=== PATIENT | male | born 1975 | race American Indian/Alaskan Native ===

== ENCOUNTER 2018-04-11 16:54 | Inpatient (IN) | payer SELFPAY ==
[2018-04-11 17:54] LABS: Basophils % (Auto) 0.6 % (0.0-1.8); Eosinophils # (Auto) 0.1 K/mm3 (0.0-0.4); Eosinophils % (Auto) 0.8 % (0.0-4.3); Hematocrit 36.8 % (35.5-45.6); Hemoglobin 12.3 gm/dl (11.8-15.2); Lymphocytes # (Auto) 2.4 K/mm3 (1.2-5.4); Lymphocytes % (Auto) 29.7 % (13.4-35.0); Mean Corpuscular HGB Conc 33 % (32-34); Mean Corpuscular Volume 85 fl (84-94); Monocytes # (Auto) 0.5 K/mm3 (0.0-0.8); Monocytes % (Auto) 6.4 % (0.0-7.3); Platelet Count 244 K/mm3 (140-440); Red Blood Count 4.32 M/mm3 (3.65-5.03); Red Cell Distribution Width 16.2 % (13.2-15.2)
[2018-04-11 18:08] LABS: Calcium 8.6 mg/dL (8.4-10.2)
[2018-04-11] MEDS ORDERED: BABY ASPIRIN PO ONE (18:15)
[2018-04-11 18:26] LABS: Chol/HDL Ratio 2.32 %
--- NOTE | 2018-04-11 18:58 | Emergency Department Report ---
ED General Adult HPI - General Chief complaint: Arrhythmia/Palpitations Stated complaint: HYPERTENSION Time Seen by Provider: 04/11/18 17:59 Source: patient Mode of arrival: Ambulatory Limitations: No Limitations - History of Present Illness Initial comments: Patient is a 42-year-old male who presents with elevated blood pressure. Also states that he has been having this headache. He states that he's been out of his amlodipine and clonidine for a while. Patient denies having any chest pain he denies having any slurred speech me nausea or vomiting. Patient states that his blood pressure was in the 200s and then he try to get it down but nothing helped. - Related Data Home Medications Medication Instructions Recorded Confirmed Last Taken Insulin NPH/Regular [Novolin 70/30] 40 units SUB-Q BID 03/18/13 03/18/13 Unknown Previous Rx's Medication Instructions Recorded Last Taken Type Ciprofloxacin HCl [Ciprofloxacin 500 mg PO BID #20 tablet 03/19/13 Unknown Rx TAB] Famotidine [Pepcid] 10 mg PO BID #20 tablet 03/19/13 Unknown Rx Hydrocodone Bit/Acetaminophen 1 - 2 each PO Q4-6H PRN #12 tablet 03/19/13 Unknown Rx [Lortab 5-500 Tablet] Allergies Allergy/AdvReac Type Severity Reaction Status Date / Time No Known Allergies Allergy Unverified 03/18/13 16:02 ED Review of Systems ROS: Stated complaint: HYPERTENSION Other details as noted in HPI Constitutional: denies: chills, fever Eyes: denies: eye pain, eye discharge, vision change ENT: denies: ear pain, throat pain Respiratory: denies: cough, shortness of breath, wheezing Cardiovascular: denies: chest pain, palpitations Endocrine: no symptoms reported Gastrointestinal: denies: abdominal pain, nausea, diarrhea Genitourinary: denies: urgency, dysuria Musculoskeletal: denies: back pain, joint swelling, arthralgia Skin: denies: rash, lesions Neurological: headache. denies: weakness, paresthesias Psychiatric: denies: anxiety, depression Hematological/Lymphatic: denies: easy bleeding, easy bruising ED Past Medical Hx - Past Medical History Previous Medical History?: Yes Hx Hypertension: Yes Hx Diabetes: Yes - Surgical History Past Surgical History?: Yes Hx Appendectomy: Yes Additional Surgical History: right great toe amputated - Social History Smoking Status: Current Every Day Smoker Substance Use Type: None - Medications Home Medications: Home Medications Medication Instructions Recorded Confirmed Last Taken Type Insulin NPH/Regular [Novolin 70/30] 40 units SUB-Q BID 03/18/13 03/18/13 Unknown History Ciprofloxacin HCl [Ciprofloxacin 500 mg PO BID #20 tablet 03/19/13 Unknown Rx TAB] Famotidine [Pepcid] 10 mg PO BID #20 tablet 03/19/13 Unknown Rx Hydrocodone Bit/Acetaminophen 1 - 2 each PO Q4-6H PRN #12 tablet 03/19/13 Unknown Rx [Lortab 5-500 Tablet] ED Physical Exam - General Limitations: No Limitations General appearance: alert, in no apparent distress - Head Head exam: Present: atraumatic, normocephalic - Eye Eye exam: Present: normal appearance - ENT ENT exam: Present: mucous membranes moist - Neck Neck exam: Present: normal inspection - Respiratory Respiratory exam: Present: normal lung sounds bilaterally. Absent: respiratory distress - Cardiovascular Cardiovascular Exam: Present: regular rate, normal rhythm. Absent: systolic murmur, diastolic murmur, rubs, gallop - GI/Abdominal GI/Abdominal exam: Present: soft, normal bowel sounds - Rectal Rectal exam: Present: deferred - Extremities Exam Extremities exam: Present: normal inspection - Back Exam Back exam: Present: normal inspection - Neurological Exam Neurological exam: Present: alert, oriented X3 - Psychiatric Psychiatric exam: Present: normal affect, normal mood - Skin Skin exam: Present: warm, dry, intact, normal color. Absent: rash ED Course Vital Signs 04/11/18 04/11/18 04/11/18 17:16 18:06 18:16 Temperature 98.8 F Pulse Rate 110 H 83 Respiratory 20 17 Rate Blood Pressure 159/98 O2 Sat by Pulse 99 100 100 Oximetry 04/11/18 04/11/18 04/11/18 18:30 18:46 19:00 Temperature Pulse Rate 80 81 85 Respiratory 13 17 13 Rate Blood Pressure 157/88 171/98 162/82 O2 Sat by Pulse 100 100 99 Oximetry 04/11/18 04/11/18 04/11/18 19:16 19:30 19:46 Temperature Pulse Rate 83 80 74 Respiratory 12 8 L 16 Rate Blood Pressure 162/82 177/103 162/82 O2 Sat by Pulse 100 100 100 Oximetry 04/11/18 04/11/18 04/11/18 20:00 20:16 20:30 Temperature Pulse Rate 77 87 100 H Respiratory 16 11 L 17 Rate Blood Pressure 162/82 177/103 151/102 O2 Sat by Pulse 100 100 100 Oximetry 04/11/18 04/11/18 04/11/18 20:46 21:00 21:16 Temperature Pulse Rate 92 H 90 Respiratory 31 H 21 Rate Blood Pressure 151/102 192/106 192/106 O2 Sat by Pulse 100 99 100 Oximetry ED Medical Decision Making - Lab Data Result diagrams: 04/11/18 17:36 04/11/18 17:36 Lab Results 04/11/18 04/11/18 04/11/18 Range/Units 17:36 17:36 20:12 WBC 8.2 (4.5-11.0) K/mm3 RBC 4.32 (3.65-5.03) M/mm3 Hgb 12.3 (11.8-15.2) gm/dl Hct 36.8 (35.5-45.6) % MCV 85 (84-94) fl MCH 28 (28-32) pg MCHC 33 (32-34) % RDW 16.2 H (13.2-15.2) % Plt Count 244 (140-440) K/mm3 Lymph % (Auto) 29.7 (13.4-35.0) % Atlantic % (Auto) 6.4 (0.0-7.3) % Eos % (Auto) 0.8 (0.0-4.3) % Baso % (Auto) 0.6 (0.0-1.8) % Lymph # 2.4 (1.2-5.4) K/mm3 Atlantic # 0.5 (0.0-0.8) K/mm3 Eos # 0.1 (0.0-0.4) K/mm3 Baso # 0.0 (0.0-0.1) K/mm3 Seg Neutrophils % 62.5 (40.0-70.0) % Seg Neutrophils # 5.1 (1.8-7.7) K/mm3 Sodium 135 L (137-145) mmol/L Potassium 5.1 H (3.6-5.0) mmol/L Chloride 103.5 (98-107) mmol/L Carbon Dioxide 23 (22-30) mmol/L Anion Gap 14 mmol/L BUN 28 H (9-20) mg/dL Creatinine 3.2 H (0.8-1.5) mg/dL Estimated GFR 26 ml/min BUN/Creatinine Ratio 9 % Glucose 355 H (75-100) mg/dL Calcium 8.6 (8.4-10.2) mg/dL Troponin T 0.052 H 0.051 H (0.00-0.029) ng/mL Triglycerides 117 (2-149) mg/dL Cholesterol 172 (50-199) mg/dL LDL Cholesterol Direct 99 (50-130) mg/dL HDL Cholesterol 74 H (40-59) mg/dL Cholesterol/HDL Ratio 2.32 % - EKG Data -: EKG Interpreted by Me - EKG Data 04/11/18 21:50 EKG shows normal sinus rhythm at rate 100 st segment elevation no T wave inversion signs of LVH. - Radiology Data Radiology results: image reviewed - Medical Decision Making Chief medical diagnosis: Hypertensive emergency Differential medical diagnosis: Non-STEMI, hypertensive urgency CBC, BMP, troponin, chest x-ray I will give patient oral aspirin Patient's blood work is concerning for elevated creatinine and elevated troponin. He states that this is never happened to him before. I will admit patient to the hospital. Critical care attestation.: If time is entered above; I have spent that time in minutes in the direct care of this critically ill patient, excluding procedure time. ED Disposition Clinical Impression: NSTEMI (non-ST elevated myocardial infarction), Hypertensive emergency, RADHA ( acute kidney injury) Disposition: OP ADMIT IP TO THIS HOSP Is pt being admited?: No Does the pt Need Aspirin: No Condition: Stable Instructions: Hypertension (ED) Referrals: OVIDIO MELLO MD [Primary Care Provider] - 3-5 Days
[2018-04-11] MEDS ORDERED: APRESOLINE IV ONE (22:51)
--- NOTE | 2018-04-11 22:57 | XRay Report ---
FINAL REPORT EXAM: XR CHEST 1V AP HISTORY: cough TECHNIQUE: AP portable view of the chest. PRIORS: None. FINDINGS: The cardiomediastinal silhouette appears normal. The lungs are clear. The bones and soft tissues are unremarkable. IMPRESSION: No evidence of acute cardiopulmonary disease.
--- NOTE | 2018-04-11 23:08 | History and Physical Report ---
History of Present Illness Date of examination: 04/11/18 History of present illness: This is a 42-year-old man with a history of hypertension, diabetes, chronic kidney disease comes to emergency room because his blood pressures being high at home. He stated that since his antihypertensives were switched, he just started monitoring his blood pressure. He stated he's compliant with his medication, his blood pressure is been very high at home so he came to the emergency room for evaluation. He complains of left flank pain Review of systems Constitutional: no weight loss, chills, fever Ears, eyes, nose, mouth and throat: no nasal congestion, no nasal discharge, no sinus pressure, no vision change, no red eye. Neck: No neck pain or rigidity. Cardiovascular: no palpitations, chest pain Respiratory: no cough, shortness of breath Gastrointestinal: no hematochezia, abdominal pain Genitourinary : no frequency , no hematuria Musculoskeletal: no joint swelling or muscle ache Integumentary: no rash, no pruritis Neurological: no parathesias, no focal weakness Endocrine: no cold or heat intolerance, no polyuria or polydipsia Hematologic/Lymphatic: no easy bruising, no easy bleeding, no gland swelling Allergic/Immunologic: no urticaria, no angioedema. PAST MEDICAL HISTORY: hypertension, diabetes, chronic kidney disease PAST SURGICAL HISTORY: Appendectomy, right toe amputation SOCIAL HISTORY: Denies alcohol, drugs, smoke 4 cigarettes a day FAMILY HISTORY: Hypertension Medications and Allergies Allergies Allergy/AdvReac Type Severity Reaction Status Date / Time No Known Allergies Allergy Unverified 03/18/13 16:02 Home Medications Medication Instructions Recorded Confirmed Last Taken Type Insulin NPH/Regular [Novolin 70/30] 40 units SUB-Q BID 03/18/13 03/18/13 Unknown History Ciprofloxacin HCl [Ciprofloxacin 500 mg PO BID #20 tablet 03/19/13 Unknown Rx TAB] Famotidine [Pepcid] 10 mg PO BID #20 tablet 03/19/13 Unknown Rx Hydrocodone Bit/Acetaminophen 1 - 2 each PO Q4-6H PRN #12 tablet 03/19/13 Unknown Rx [Lortab 5-500 Tablet] Exam - Physical Exam Narrative exam: General Apperance: The patient lying in bed, breathing comfortable HEENT: Normocephalic, atraumatic. Pupils equally round and reactive to light, EOMI, no sclericterus or JVD or thyromegaly or nodule. , no carotid bruit, mucous membranes moist, no exudate or erythema Heart: S1-S2, regular is rhythm Lungs: Clear to auscultation bilaterally, breathing comfortable Abdomen: Positive bowel sounds, soft, nontender, nondistended, no organomegaly Extremities: No edema cyanosis clubbing Skin: no rash, nodule, warm and dry Neuro: cranial nerves 2-12 intact, speech is fluent, motor/sensory intact - Constitutional Vitals: Temp Pulse Resp BP Pulse Ox 98.8 F 90 21 192/106 100 04/11/18 17:16 04/11/18 21:00 04/11/18 21:00 04/11/18 21:16 04/11/18 21:16 Results - Labs CBC & Chem 7: 04/11/18 17:36 04/11/18 17:36 Labs: Abnormal lab results 04/11/18 04/11/18 04/11/18 Range/Units 17:36 17:36 20:12 RDW 16.2 H (13.2-15.2) % Sodium 135 L (137-145) mmol/L Potassium 5.1 H (3.6-5.0) mmol/L BUN 28 H (9-20) mg/dL Creatinine 3.2 H (0.8-1.5) mg/dL Glucose 355 H (75-100) mg/dL Troponin T 0.052 H 0.051 H (0.00-0.029) ng/mL HDL Cholesterol 74 H (40-59) mg/dL - Imaging and Cardiology EKG: image reviewed Chest x-ray: image reviewed Assessment and Plan Assessment Hypertensive urgency, malignant acute on chronic renal failure Left flank pain Abnormal cardiac enzymes Diabetes uncontrolled Plan Admit to medicine Start IV hydralazine, restart outpatient medications Start Gentle IV fluid, consult renal, check CAT scan of the abdomen and pelvis Check cardiac enzymes, echo, consult cardiology Check Lani 6 initiate insulin sliding scale DVT prophylaxis
[2018-04-11] MEDS ORDERED: APRESOLINE IV PRN (23:09)
[2018-04-11] MEDS ORDERED: NORVASC PO ONE ×2 (23:11→23:45)
[2018-04-11] MEDS ORDERED: HumuLIN R IV ONE (23:49)
[2018-04-11] MEDS ORDERED: HumuLIN R ONE (23:55)
[2018-04-12] MEDS ORDERED: SODIUM CHLORIDE FLUSH SYRINGE 10 ML IV PRN (00:36)
[2018-04-12] MEDS ORDERED: ZOFRAN IV PRN (00:36)
[2018-04-12] MEDS ORDERED: TYLENOL PO PRN (00:36)
[2018-04-12] MEDS ORDERED: KIONEX PO ONE ×2 (01:00→08:30)
[2018-04-12] MEDS: PERCOCET 5/325 PO PRN ×3 (04:54→19:38)
[2018-04-12] MEDS ORDERED: D50W (25GM) Syringe IV PRN ×2 (06:49→09:00)
[2018-04-12 07:02] LABS: Basophils # (Auto) 0.1 K/mm3 (0.0-0.1); Eosinophils # (Auto) 0.1 K/mm3 (0.0-0.4); Eosinophils % (Auto) 1.4 % (0.0-4.3); Hematocrit 36.6 % (35.5-45.6); Hemoglobin 11.4 gm/dl (11.8-15.2); Lymphocytes # (Auto) 2.4 K/mm3 (1.2-5.4); Lymphocytes % (Auto) 34.5 % (13.4-35.0); Mean Corpuscular HGB Conc 31 % (32-34); Mean Corpuscular Volume 88 fl (84-94); Monocytes # (Auto) 0.5 K/mm3 (0.0-0.8); Monocytes % (Auto) 7.5 % (0.0-7.3); Platelet Count 218 K/mm3 (140-440); Red Blood Count 4.16 M/mm3 (3.65-5.03); Red Cell Distribution Width 16.6 % (13.2-15.2)
[2018-04-12 07:11] LABS: Calcium 8.5 mg/dL (8.4-10.2)
--- NOTE | 2018-04-12 07:18 | Consultation ---
History of Present Illness - Reason for Consult Consult date: 04/12/18 acute renal failure, hyperkalemia - History of Present Illness Very pleasant 42-year-old -[place]ag[place] male with past medical history significant for hypertension and diabetes who has not followed up with primary care secondary to insurance issues, presented to the emergency department secondary to elevated blood pressures. He has visited emergency rooms in the past secondary to uncontrolled blood pressure. Had recently went to another outside emergency room and was given amlodipine and clonidine for her home blood pressure control. This was only for a couple of weeks. He states that despite taking these medications his blood pressures had been elevated and erratic and was instructed to go to the hospital for further evaluation. 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 Nephrology consult secondary to acute kidney injury and hyperkalemia. I do not have a previous renal function panel to compare to but patient has mentioned that in his previous hospitalizations he has been seen by a funeral pre need consultant. He unfortunately was unable to follow-up secondary to insurance issues. He denies any complaints of nausea, vomiting, headache, chest pain, or shortness of breath. He does mention periodic bilateral lower extremity swelling. He did attributed to the amlodipine. He has no swelling noted at this time. In the emergency room he was also found to be significantly hyperglycemic. He is on sliding scale insulin at home. He does not remember h is last hemoglobin A1c. He states that his blood sugar control is also been a radical last 2-3 days. He denies any significant symptoms as polyuria or polydipsia. He is also complained of right-sided flank pain but denies hematuria. Past History Past Medical History: diabetes, hypertension, hyperlipidemia Past Surgical History: appendectomy Social history: lives with family, smoking Family history: diabetes (his cousin is on dialysis secondary to diabetes and end-stage renal disease), hypertension Medications and Allergies Allergies Allergy/AdvReac Type Severity Reaction Status Date / Time No Known Allergies Allergy Unverified 03/18/13 16:02 Home Medications Medication Instructions Recorded Confirmed Last Taken Type Insulin NPH/Regular [Novolin 70/30] 40 units SUB-Q BID 03/18/13 03/18/13 Unknown History Ciprofloxacin HCl [Ciprofloxacin 500 mg PO BID #20 tablet 03/19/13 Unknown Rx TAB] Famotidine [Pepcid] 10 mg PO BID #20 tablet 03/19/13 Unknown Rx Hydrocodone Bit/Acetaminophen 1 - 2 each PO Q4-6H PRN #12 tablet 03/19/13 Unknown Rx [Lortab 5-500 Tablet] Active Meds: Active Medications Acetaminophen (Tylenol) 650 mg PO Q4H PRN PRN Reason: Pain MILD(1-3)/Fever >100.5/DIA Dextrose (D50w (25gm) Syringe) 50 ml IV PRN PRN PRN Reason: Hypoglycemia Enoxaparin Sodium (Lovenox) 30 mg SUB-Q QDAY JUAN DANIEL Hydralazine HCl (Apresoline) 5 mg IV Q6H PRN PRN Reason: Hypertension Sodium Chloride (Nacl 0.45% 1000 Ml) 1,000 mls @ 75 mls/hr IV DIRECT JUAN DANIEL Insulin Human Regular (Humulin R) 0 units SUB-Q ACHS JUAN DANIEL; Protocol Ondansetron HCl (Zofran) 4 mg IV Q8H PRN PRN Reason: Nausea And Vomiting Oxycodone/Acetaminophen (Percocet 5/325) 1 tab PO Q6H PRN PRN Reason: Pain, Moderate (4-6) Last Admin: 04/12/18 04:54 Dose: 1 tab Documented by: Sodium Chloride (Sodium Chloride Flush Syringe 10 Ml) 10 ml IV BID JUAN DANIEL Sodium Chloride (Sodium Chloride Flush Syringe 10 Ml) 10 ml IV PRN PRN PRN Reason: LINE FLUSH Review of Systems All systems: negative Gastrointestinal: abdominal pain Exam - Vital Signs Vital signs: Vital Signs Temp Pulse Resp BP Pulse Ox 98.8 F 110 H 20 159/98 99 04/11/18 17:16 04/11/18 17:16 04/11/18 17:16 04/11/18 17:16 04/11/18 17:16 - General Appearance General appearance: well-developed, well-nourished, appears stated age EENT: ATNC, PERRL Neck: Present: neck supple, trachea midline Respiratory: Clear to Ascultation, Normal Exam Heart: regular, S1S2 Gastrointestinal: Present: normal, normoactive bowel sounds Integumentary: no rash, warm and dry Neurologic: no focal deficit, no asterixis, alert and oriented x3 Musculoskeletal: Present: other (-edema) Psychiatric: mood/affect appropriate, cooperative Results - Lab Results 04/12/18 06:26 04/12/18 06:26 Most recent lab results Calcium 8.5 mg/dL (8.4-10.2) 04/12/18 06:26 Assessment and Plan - Patient Problems (1) RADHA (acute kidney injury) Current Visit: Yes Status: Acute Plan to address problem: Acute on likely chronic kidney disease secondary to uncontrolled hypertension, uncontrolled diabetes. Will obtain urine analysis as well as urine electrolytes. We'll also obtain a renal ultrasound. Would recommend that we discontinue his IV fluids in the setting of the uncontrolled blood pressure. We'll follow up on renal function daily. Avoid any nephrotoxins. (2) Hypertensive chronic kidney disease with stage 1 through stage 4 chronic kidney disease, or unspecified chronic kidney disease Current Visit: Yes Status: Chronic Plan to address problem: We'll start patient on hydralazine 50 mg twice a day. We'll also have him start on nifedipine 60 mg. We'll titrate medications as appropriate for blood pressure control. Would favor to discontinue his IV fluids are running at this time in the setting of his hypertensive state. Expressed to patient the importance of low-salt diet. (3) Type 2 diabetes mellitus with diabetic chronic kidney disease Current Visit: Yes Status: Chronic Plan to address problem: Diabetes management per primary team. Will add hemoglobin A1c to labs this morning. 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 Agree with optimal medical treatment and adequate blood sugar control. Kayexalate has been ordered this morning. Also needs to ensure the patient is on a low potassium diet. (5) Metabolic acidosis Current Visit: Yes Status: Acute Plan to address problem: Will add patient on sodium bicarbonate tablets 650 mg by mouth twice a day. (6) NSTEMI (non-ST elevated myocardial infarction) Current Visit: Yes Status: Acute Plan to address problem: Cardiology has been consulted. Echocardiogram is pending. We'll follow up with further recommendations.
[2018-04-12] MEDS ORDERED: HumuLIN R SUB-Q SCH (07:30)
[2018-04-12] MEDS ORDERED: APRESOLINE IV PRN (08:17)
[2018-04-12 08:56] LABS: Creatine Kinase MB 4.5 ng/mL (0.0-4.0)
[2018-04-12] MEDS ORDERED: HumaLOG SUB-Q ONE (09:00)
[2018-04-12] MEDS ORDERED: LANTUS SUB-Q ONE (09:30)
--- NOTE | 2018-04-12 09:54 | Cat Scan Report ---
CT ABDOMEN PELVIS WITHOUT CONTRAST: HISTORY: Acute renal failure, left flank pain. COMPARISON: none. TECHNIQUE: Helical CT in 1.25mm intervals without IV contrast. Sagittal and coronal reconstructions. FINDINGS: Lung bases: Normal. Liver: Normal. Biliary system: Normal. Pancreas: Normal. Spleen: Normal. Kidneys/ureters/bladder: The kidneys are normal size and position. There are 1 or 2 punctate calyceal stones in both kidneys. No obvious ureteral stones or hydronephrosis. The bladder is mildly distended but otherwise unremarkable. Adrenal glands: Normal. Aorta: Normal. Intestines: Within normal limits given no oral contrast was administered. Mild constipation is suspected. Appendix: Not confidently identified. Pelvic viscera: Normal. Ascites: None. Adenopathy: None. Musculoskeletal: Normal. IMPRESSION: There are a few punctate calyceal stones in both kidneys. No ureteral stones or hydronephrosis. Mild constipation.
[2018-04-12] MEDS: PEPCID PO SCH ×2 (10:41→23:00)
[2018-04-12] MEDS: SODIUM BICARBONATE PO SCH ×2 (10:41→23:01)
[2018-04-12] MEDS: LOVENOX SUB-Q SCH (10:41)
[2018-04-12] MEDS: PROCARDIA XL PO SCH (10:41)
[2018-04-12] MEDS: APRESOLINE PO SCH ×2 (10:41→23:01)
[2018-04-12] MEDS: SODIUM CHLORIDE FLUSH SYRINGE 10 ML IV SCH ×2 (10:42→22:30)
--- NOTE | 2018-04-12 10:58 | Ultrasound Report ---
ULTRASOUND RENAL BILATERAL HISTORY: Acute kidney insufficiency. TECHNIQUE: transabdominal ultrasound with color Doppler interrogation. COMPARISON: CT abdomen pelvis performed the same day. FINDINGS: The right kidney measures 8.6 x 4.6 x 4.7cm. Right renal cortex: 1.9cm. The left kidney measures 9.5 x 4.3 x 5.4cm. Left renal cortex: 1.4cm. The kidneys are normal size, contour and position. There is increased renal cortical echotexture bilaterally consistent with nonspecific renal parenchymal disease. Corticomedullary differentiation is preserved. There is diffuse scattered punctate calyceal stones in both kidneys. No evidence for cystic disease, mass, hydronephrosis or perinephric fluid. The views of the bladder and the region of the ureters appear normal. IMPRESSION: Renal parenchymal disease. Punctate bilateral renal stones, nonobstructing.
--- NOTE | 2018-04-12 11:41 | Consultation ---
History of Present Illness Consult date: 04/12/18 Requesting physician: TEENA SHAW Consult reason: elevated troponin, hypertension History of present illness: The patient has a history of hypertension. He claims that his BP has been uncontrolled for the past 3 weeks. He claims that his antihypertensive management regimen was modified recently. He used to be on HCTZ in combination with another drug. Recently, he claims that HCTZ was discontinued and he was pl aced on amlodipine and clonidine. He claims that he has noted some leg swelling recently. He decided to present to the ER because his blood pressure was staying significantly elevated. He denies headache, nausea, vomiting or blurring of vision. He admits to intermittent chest pain a few days ago. He claims that he had been advised to go for nephrology consultation in the past. However, whenever he attempted to set up an appointment, they never called him back, probably due to his lack of insurance. Past History Past Medical History: diabetes, hypertension, renal failure Past Surgical History: appendectomy, Other (right great toe amputation.) Social history: single, lives with family, smoking. denies: alcohol abuse Family history: denies: CAD Medications and Allergies Allergies Allergy/AdvReac Type Severity Reaction Status Date / Time No Known Allergies Allergy Unverified 03/18/13 16:02 Home Medications Medication Instructions Recorded Confirmed Last Taken Type Insulin NPH/Regular [Novolin 70/30] 40 units SUB-Q BID 03/18/13 03/18/13 Unknown History Ciprofloxacin HCl [Ciprofloxacin 500 mg PO BID #20 tablet 03/19/13 Unknown Rx TAB] Famotidine [Pepcid] 10 mg PO BID #20 tablet 03/19/13 Unknown Rx Hydrocodone Bit/Acetaminophen 1 - 2 each PO Q4-6H PRN #12 tablet 03/19/13 Unknown Rx [Lortab 5-500 Tablet] Active Meds: Active Medications Acetaminophen (Tylenol) 650 mg PO Q4H PRN PRN Reason: Pain MILD(1-3)/Fever >100.5/DIA Dextrose (D50w (25gm) Syringe) 50 ml IV PRN PRN PRN Reason: Hypoglycemia Dextrose (D50w (25gm) Syringe) 50 ml IV PRN PRN PRN Reason: Hypoglycemia Enoxaparin Sodium (Lovenox) 30 mg SUB-Q QDAY JUAN DANIEL Last Admin: 04/12/18 10:41 Dose: 30 mg Documented by: Famotidine (Pepcid) 10 mg PO BID [facility] Last Admin: 04/12/18 10:41 Dose: 10 mg Documented by: Hydralazine HCl (Apresoline) 50 mg PO BID [facility] Last Admin: 04/12/18 10:41 Dose: 50 mg Documented by: Hydralazine HCl (Apresoline) 20 mg IV Q6H PRN PRN Reason: Hypertension Sodium Chloride (Nacl 0.45% 1000 Ml) 1,000 mls @ 75 mls/hr IV DIRECT [facility] Insulin Human Isoph/Insulin Regular (Humulin 70/30) 40 unit SUB-Q BIDDIAB [facility] Insulin Human Lispro (Humalog) 0 unit SUB-Q ACHS [facility]; Protocol Nifedipine (Procardia Xl) 60 mg PO QDAY [facility] Last Admin: 04/12/18 10:41 Dose: 60 mg Documented by: Ondansetron HCl (Zofran) 4 mg IV Q8H PRN PRN Reason: Nausea And Vomiting Oxycodone/Acetaminophen (Percocet 5/325) 1 tab PO Q6H PRN PRN Reason: Pain, Moderate (4-6) Last Admin: 04/12/18 04:54 Dose: 1 tab Documented by: Sodium Bicarbonate (Sodium Bicarbonate) 650 mg PO BID [facility] Last Admin: 04/12/18 10:41 Dose: 650 mg Documented by: Sodium Chloride (Sodium Chloride Flush Syringe 10 Ml) 10 ml IV BID [facility] Last Admin: 04/12/18 10:42 Dose: 10 ml Documented by: Sodium Chloride (Sodium Chloride Flush Syringe 10 Ml) 10 ml IV PRN PRN PRN Reason: LINE FLUSH Review of Systems Constitutional: no fever, no chills Ears, nose, mouth and throat: no ear pain, no ear discharge, no sore throat Cardiovascular: chest pain, edema, no orthopnea, no palpitations, no lightheadedness, no shortness of breath Respiratory: no cough, no hemoptysis, no shortness of breath Gastrointestinal: no abdominal pain, no nausea, no vomiting, no diarrhea, no constipation Genitourinary Male: no dysuria, no urinary frequency Rectal: no pain, no bleeding Musculoskeletal: no neck stiffness, no neck pain, no myalgias Integumentary: no rash, no pruritis Neurological: no weakness, no parathesias, no headaches Endocrine: no cold intolerance, no heat intolerance Hematologic/Lymphatic: no easy bruising, no easy bleeding Allergic/Immunologic: no urticaria, no wheezing Physical Examination Vital Signs Last Vital Signs Temp 98.7 F 04/12/18 05:17 Pulse 76 04/12/18 10:41 Resp 18 04/12/18 05:17 BP 134/72 04/12/18 10:41 Pulse Ox 100 04/12/18 05:17 General appearance: no acute distress HEENT: Positive: EOMI, Normocephaly, Mucus Membranes Moist Neck: Positive: neck supple, trachea midline Cardiac: Positive: Reg Rate and Rhythm, S1/S2 Lungs: Positive: clear to auscultation Neuro: Positive: Grossly Intact Abdomen: Positive: Soft, Active Bowel Sounds. Negative: Tender Skin: Positive: Clear. Negative: Rash Musculoskeletal: Normal Range of Motion Extremities: Present: normal. Absent: edema Results 04/12/18 06:26 04/12/18 06:26 Cardiac Enzymes 04/12/18 04/12/18 Range/Units 00:51 06:26 CK-MB (CK-2) 6.0 H 4.5 H (0.0-4.0) ng/mL Lipids 04/11/18 Range/Units 17:36 Triglycerides 117 (2-149) mg/dL Cholesterol 172 (50-199) mg/dL HDL Cholesterol 74 H (40-59) mg/dL Cholesterol/HDL Ratio 2.32 % CBC 04/11/18 04/12/18 Range/Units 17:36 06:26 WBC 8.2 6.9 (4.5-11.0) K/mm3 RBC 4.32 4.16 (3.65-5.03) M/mm3 Hgb 12.3 11.4 L (11.8-15.2) gm/dl Hct 36.8 36.6 (35.5-45.6) % Plt Count 244 218 (140-440) K/mm3 Lymph # 2.4 2.4 (1.2-5.4) K/mm3 [place] # 0.5 0.5 (0.0-0.8) K/mm3 Eos # 0.1 0.1 (0.0-0.4) K/mm3 Baso # 0.0 0.1 (0.0-0.1) K/mm3 Comprehensive Metabolic Panel 04/11/18 04/12/18 Range/Units 17:36 06:26 Sodium 135 L 131 L (137-145) mmol/L Potassium 5.1 H 5.8 H (3.6-5.0) mmol/L Chloride 103.5 96.9 L (98-107) mmol/L Carbon Dioxide 23 20 L (22-30) mmol/L BUN 28 H 30 H (9-20) mg/dL Creatinine 3.2 H 3.6 H (0.8-1.5) mg/dL Glucose 355 H 712 H* (75-100) mg/dL Calcium 8.6 8.5 (8.4-10.2) mg/dL - Imaging and Cardiology EKG: image reviewed EKG interpretations - Telemetry EKG Rhythm: Sinus Rhythm - EKG Sinus rhythms and dysrhythmias: sinus rhythm Chamber hypertrophy or enlargement: left atrial enlargement, right atrial enlargment, left ventricular hypertro Assessment and Plan Will optimize his antihypertensive regimen. Obtain echocardiogram. Schedule Lexiscan stress MPI in am. - Patient Problems (1) Uncontrolled hypertension Current Visit: Yes Status: Acute (2) Elevated troponin Current Visit: Yes Status: Acute (3) CKD (chronic kidney disease) Current Visit: Yes Status: Chronic (4) Diabetes mellitus Current Visit: Yes Status: Chronic Qualifiers: Diabetes mellitus type: type 2
--- NOTE | 2018-04-12 12:32 | Progress Note ---
Assessment and Plan Assessment and plan: 42-year-old man who presented to the hospital with elevated blood pressure. Was complaining of headache. He ran out of his blood pressure meds which were namely amlodipine and clonidine for quite some time. She had systolic blood pressure in the 200s, therefore he was admitted. Past medical history includes hypertension, type [address] abdomen and pelvis shows few punctate calyceal stones in both kidneys, no ureteral stones or hydronephrosis, Renal ultrasound shows renal parenchymal disease Chest x-ray is negative for acute cardiopulmonary disease Diagnosis Hypertensive urgency Type 2 diabetes with persistent hyperglycemia Hyperosmolar hyperglycemic nonketotic state Acute on chronic renal failure, HTN nephropathy Left flank pain Abnormal cardiac enzymes Hyperkalemia Plan Optimize blood pressure medications Insulin bolus given plus IVF The patient denies chest pain, management of slightly elevated troponin per cardiology. Left flank pain resolved, kidney imaging is negative, no further workup indicated He received Kayexalate for hyperkalemia. nephrology input appreciated Patient is self-pay, so therefore would benefits from being put on affordable medications. DVT prophylaxis with Lovenox History Interval history: Review of systems Constitutional: No fevers, no malaise, no joint pains CVS: No chest pain, no orthopnea, no dyspnea on exertion, no pedal edema GI: No abdominal pain, no diarrhea, no vomiting, no constipation Respiratory: No shortness of breath, no wheezing, no coughing Hospitalist Physical - Physical exam Narrative exam: General.: Appears well, no distress, nontoxic HEENT: Moist mucous membranes, extraocular muscles intact, no lymphadenopathy Neck: supple Cardiac: S1-S2 heard Lungs: clear to auscultation bilaterally Abdomen: soft , nontender, nondistended, bowel sounds positive Extremities: no edema clubbing or cyanosis Skin: no rash or lesions Neurologic: no gross focal deficits Psych: calm, and cooperative - Constitutional Vitals: Temp Pulse Resp BP Pulse Ox 98.7 F 76 18 134/72 100 04/12/18 05:17 04/12/18 10:41 04/12/18 05:17 04/12/18 10:41 04/12/18 05:17 General appearance: Present: no acute distress Results - Labs CBC & Chem 7: 04/12/18 06:26 04/12/18 06:26 Labs: Laboratory Last Values WBC 6.9 K/mm3 (4.5-11.0) 04/12/18 06:26 RBC 4.16 M/mm3 (3.65-5.03) 04/12/18 06:26 Hgb 11.4 gm/dl (11.8-15.2) L 04/12/18 06:26 Hct 36.6 % (35.5-45.6) 04/12/18 06:26 MCV 88 fl (84-94) 04/12/18 06:26 MCH 27 pg (28-32) L 04/12/18 06:26 MCHC 31 % (32-34) L 04/12/18 06:26 RDW 16.6 % (13.2-15.2) H 04/12/18 06:26 Plt Count 218 K/mm3 (140-440) 04/12/18 06:26 Lymph % (Auto) 34.5 % (13.4-35.0) 04/12/18 06:26 [place] % (Auto) 7.5 % (0.0-7.3) H 04/12/18 06:26 Eos % (Auto) 1.4 % (0.0-4.3) 04/12/18 06:26 Baso % (Auto) 1.0 % (0.0-1.8) 04/12/18 06:26 Lymph # 2.4 K/mm3 (1.2-5.4) 04/12/18 06:26 [place] # 0.5 K/mm3 (0.0-0.8) 04/12/18 06:26 Eos # 0.1 K/mm3 (0.0-0.4) 04/12/18 06:26 Baso # 0.1 K/mm3 (0.0-0.1) 04/12/18 06:26 Seg Neutrophils % 55.6 % (40.0-70.0) 04/12/18 06:26 Seg Neutrophils # 3.9 K/mm3 (1.8-7.7) 04/12/18 06:26 Sodium 131 mmol/L (137-145) L 04/12/18 06:26 Potassium 5.8 mmol/L (3.6-5.0) H 04/12/18 06:26 Chloride 96.9 mmol/L (98-107) L 04/12/18 06:26 Carbon Dioxide 20 mmol/L (22-30) L 04/12/18 06:26 Anion Gap 20 mmol/L 04/12/18 06:26 BUN 30 mg/dL (9-20) H 04/12/18 06:26 Creatinine 3.6 mg/dL (0.8-1.5) H 04/12/18 06:26 Estimated GFR 22 ml/min 04/12/18 06:26 BUN/Creatinine Ratio 8 % 04/12/18 06:26 Glucose 712 mg/dL (75-100) H* 04/12/18 06:26 POC Glucose 443 (70-105) H 04/12/18 10:32 Calcium 8.5 mg/dL (8.4-10.2) 04/12/18 06:26 Total Creatine Kinase 248 units/L (55-170) H 04/12/18 06:26 CK-MB (CK-2) 4.5 ng/mL (0.0-4.0) H 04/12/18 06:26 CK-MB (CK-2) Rel Index 1.8 (0-4) 04/12/18 06:26 Troponin T 0.067 ng/mL (0.00-0.029) H 04/12/18 06:26 Triglycerides 117 mg/dL (2-149) 04/11/18 17:36 Cholesterol 172 mg/dL (50-199) 04/11/18 17:36 LDL Cholesterol Direct 99 mg/dL (50-130) 04/11/18 17:36 HDL Cholesterol 74 mg/dL (40-59) H 04/11/18 17:36 Cholesterol/HDL Ratio 2.32 % 04/11/18 17:36 PTH Intact 237.8 pg/mL (15-65) H 04/12/18 09:13
[2018-04-12] MEDS: HumaLOG SUB-Q SCH ×5 (13:08→23:01)
[2018-04-12] MEDS: LOPRESSOR PO SCH ×2 (13:09→19:38)
[2018-04-12] MEDS: NACL 0.45% 1000 ML 1,000 ML IV SCH (19:49)
[2018-04-13] MEDS: PERCOCET 5/325 PO PRN ×3 (01:09→18:58)
[2018-04-13 06:40] LABS: Calcium 8.4 mg/dL (8.4-10.2)
[2018-04-13] MEDS: HumaLOG SUB-Q SCH ×4 (08:08→22:00)
[2018-04-13] MEDS: LOPRESSOR PO SCH (08:12)
[2018-04-13] MEDS ORDERED: LEXISCAN IV ONE ×2 (08:19)
--- NOTE | 2018-04-13 09:15 | Progress Note ---
Assessment and Plan - Patient Problems (1) RADHA (acute kidney injury) Current Visit: Yes Status: Acute Plan to address problem: Acute on likely chronic kidney disease secondary to uncontrolled hypertension, uncontrolled diabetes. Urine analysis as well as urine electrolytes pending . Renal ultrasound. Would recommend that we discontinue his IV fluids in the setting of the uncontrolled blood pressure. We'll follow up on renal function daily. Avoid any nephrotoxins. Discussed with patient that he likely has late stage III/early stage IV CKD. He needs to follow up with me in the clinic within 2-3 weeks post discharge. (2) Hypertensive chronic kidney disease with stage 1 through stage 4 chronic kidney disease, or unspecified chronic kidney disease Current Visit: Yes Status: Chronic Plan to address problem: We'll started patient on hydralazine 50 mg twice a day. We'll also started him nifedipine 60 mg. We'll titrate medications as appropriate for blood pressure control. Patient also added on metoprolol. Expressed to patient the importance of low-salt diet. (3) Type 2 diabetes mellitus with diabetic chronic kidney disease Current Visit: Yes Status: Chronic Plan to address problem: Diabetes management per primary team. Will add hemoglobin A1c to labs this morning. 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 Agree with optimal medical treatment and adequate blood sugar control. Potassium levels are improved this am. He should be on a low K diet. (5) Metabolic acidosis Current Visit: Yes Status: Acute Plan to address problem: Placed on sodium bicarbonate tablets 650 mg by mouth twice a day. (6) NSTEMI (non-ST elevated myocardial infarction) Current Visit: Yes Status: Acute Plan to address problem: Cardiology has been consulted. Stress test pending this am per nursing staff. We'll follow up with further recommendations. Subjective Date of service: 04/13/18 Interval history: Patient seen earlier this am at ~7:45 am. No acute complaints overnight. Labs noted this am and overall renal function is stable. Elevated iPTH and renal US indicate likely underlying CKD burden. HgA1c elevated at 11. Started on oral antihypertensive regimen, with BP control improved since admission. Pending stress test this am. Objective - Vital Signs Vital signs: Vital Signs - 12hr 04/12/18 04/12/18 04/13/18 21:19 22:55 01:09 Temperature 98.4 F Pulse Rate 74 Respiratory 16 18 Rate Blood Pressure 152/92 O2 Sat by Pulse 100 99 Oximetry 04/13/18 03:37 Temperature 98.0 F Pulse Rate 72 Respiratory 14 Rate Blood Pressure 148/89 O2 Sat by Pulse 98 Oximetry - General Appearance General appearance: well-developed, well-nourished, appears stated age EENT: ATNC, PERRL Neck: no JVD, no thyromegaly Respiratory: Present: Clear to Ascultation, Normal Exam Cardiology: regular, S1S2 Gastrointestinal: normal, normoactive bowel sounds Integumentary: no rash, warm and dry Neurologic: no focal deficit, no asterixis, alert and oriented x3 Musculoskeletal: other (-edema ) Psychiatric: mood/affect appropriate, cooperative - Lab 04/12/18 06:26 04/13/18 05:50 Most recent lab results Calcium 8.4 mg/dL (8.4-10.2) 04/13/18 05:50 - Imaging Kidney/bladder ultrasound: report reviewed - Allied health notes Allied health notes reviewed: nursing Medications & Allergies - Medications Allergies/Adverse Reactions: Allergies No Known Allergies Allergy (Unverified 03/18/13 16:02) Home Medications: Home Medications Medication Instructions Recorded Confirmed Last Taken Type Insulin NPH/Regular [Novolin 70/30] 40 units SUB-Q BID 03/18/13 03/18/13 Unknown History Ciprofloxacin HCl [Ciprofloxacin 500 mg PO BID #20 tablet 03/19/13 Unknown Rx TAB] Famotidine [Pepcid] 10 mg PO BID #20 tablet 03/19/13 Unknown Rx Hydrocodone Bit/Acetaminophen 1 - 2 each PO Q4-6H PRN #12 tablet 03/19/13 Unknown Rx [Lortab 5-500 Tablet] Active Medications: Generic Name Dose Route Start Last Admin Trade Name Freq PRN Reason Stop Dose Admin Acetaminophen 650 mg 04/12/18 00:36 Tylenol PO Q4H PRN Pain MILD(1-3)/Fever >100.5/DIA Dextrose 50 ml 04/12/18 09:00 D50w (25gm) Syringe IV PRN PRN Hypoglycemia Enoxaparin Sodium 30 mg 04/12/18 10:00 04/12/18 10:41 Lovenox SUB-Q 30 mg QDAY JUAN DANIEL Administration Famotidine 10 mg 04/12/18 10:00 04/12/18 23:00 Pepcid PO 10 mg BID JUAN DANIEL Administration Hydralazine HCl 50 mg 04/12/18 10:00 04/12/18 23:01 Apresoline PO 50 mg BID JUAN DANIEL Administration Hydralazine HCl 20 mg 04/12/18 08:17 Apresoline IV Q6H PRN Hypertension Sodium Chloride 1,000 mls @ 75 mls/hr 04/11/18 23:45 04/12/18 19:49 Nacl 0.45% 1000 Ml IV 75 mls/hr DIRECT JUAN DANIEL Administration Insulin Human Isoph/Insulin Regular 40 unit 04/12/18 17:00 04/13/18 08:09 Humulin 70/30 SUB-Q Not Given BIDDIAB JUAN DANIEL Insulin Human Lispro 0 unit 04/12/18 11:30 04/13/18 08:08 Humalog SUB-Q Not Given ACHS [facility] Protocol Metoprolol Tartrate 50 mg 04/12/18 14:00 04/13/18 08:12 Lopressor PO Not Given TID JUAN DANIEL Nifedipine 60 mg 04/12/18 10:00 04/12/18 10:41 Procardia Xl PO 60 mg QDAY JUAN DANIEL Administration Ondansetron HCl 4 mg 04/12/18 00:36 Zofran IV Q8H PRN Nausea And Vomiting Oxycodone/Acetaminophen 1 tab 04/12/18 00:36 04/13/18 01:09 Percocet 5/325 PO 1 tab Q6H PRN Administration Pain, Moderate (4-6) Sodium Bicarbonate 650 mg 04/12/18 10:00 04/12/18 23:01 Sodium Bicarbonate PO 650 mg BID JUAN DANIEL Administration Sodium Chloride 10 ml 04/12/18 10:00 04/12/18 22:30 Sodium Chloride Flush Syringe 10 Ml IV 10 ml BID JUAN DANIEL Administration Sodium Chloride 10 ml 04/12/18 00:36 Sodium Chloride Flush Syringe 10 Ml IV PRN PRN LINE FLUSH
[2018-04-13] MEDS: PEPCID PO SCH ×2 (10:17→21:29)
[2018-04-13] MEDS: APRESOLINE PO SCH ×2 (10:17→21:30)
[2018-04-13] MEDS: PROCARDIA XL PO SCH (10:17)
[2018-04-13] MEDS: LOVENOX SUB-Q SCH (10:20)
[2018-04-13] MEDS: SODIUM CHLORIDE FLUSH SYRINGE 10 ML IV SCH ×2 (10:30→22:10)
[2018-04-13] MEDS: SODIUM BICARBONATE PO SCH ×2 (10:30→21:29)
--- NOTE | 2018-04-13 11:57 | Progress Note ---
Assessment and Plan S/p lexiscan MPI stress test this AM which was negative. Echo reviewed - EF 65-70%, mod LVH, impaired relaxation. Optimize anti-hypertensive regimen - increase lopressor. Follow nephrology recs. The patient has been seen in conjunction with Dr. Cox who agrees with the assessment and plan of care. - Patient Problems (1) Uncontrolled hypertension Current Visit: Yes Status: Acute (2) Elevated troponin Current Visit: Yes Status: Acute (3) CKD (chronic kidney disease) Current Visit: Yes Status: Chronic (4) Diabetes mellitus Current Visit: Yes Status: Chronic Qualifiers: Diabetes mellitus type: type 2 Subjective Date of service: 04/13/18 Principal diagnosis: HTN; CKD Interval history: pt for stress test, no current complaints. Objective Last Vital Signs Temp 98.1 F 04/13/18 11:34 Pulse 87 04/13/18 11:35 Resp 18 04/13/18 11:35 BP 165/89 04/13/18 11:35 Pulse Ox 99 04/13/18 11:35 - Physical Examination General: No Apparent Distress HEENT: Positive: EOMI, Normocephaly, Mucus Membranes Moist Neck: Positive: neck supple, trachea midline Cardiac: Positive: Reg Rate and Rhythm, S1/S2 Lungs: Positive: clear to auscultation Neuro: Positive: Grossly Intact Abdomen: Positive: Soft, Active Bowel Sounds. Negative: Tender Skin: Positive: Clear. Negative: Rash Musculoskeletal: Normal Range of Motion Extremities: Present: normal. Absent: edema - Labs and Meds Comprehensive Metabolic Panel 04/13/18 Range/Units 05:50 Sodium 133 L (137-145) mmol/L Potassium 4.3 D (3.6-5.0) mmol/L Chloride 102.2 (98-107) mmol/L Carbon Dioxide 21 L (22-30) mmol/L BUN 30 H (9-20) mg/dL Creatinine 3.3 H (0.8-1.5) mg/dL Glucose 185 H (75-100) mg/dL Calcium 8.4 (8.4-10.2) mg/dL - Imaging and Cardiology EKG: image reviewed - EKG Sinus rhythms and dysrhythmias: sinus rhythm Chamber hypertrophy or enlargement: left atrial enlargement, right atrial enlargment, left ventricular hypertro - Allied health notes Allied health notes reviewed: nursing
--- NOTE | 2018-04-13 12:31 | Progress Note ---
Assessment and Plan Assessment and plan: 42-year-old man who presented to the hospital with elevated blood pressure. Was complaining of headache. He ran out of his blood pressure meds which were namely amlodipine and clonidine for quite some time. She had systolic blood pressure in the 200s, therefore he was admitted. Past medical history includes hypertension, type [address] abdomen and pelvis shows few punctate calyceal stones in both kidneys, no ureteral stones or hydronephrosis, Renal ultrasound shows renal parenchymal disease Chest x-ray is negative for acute cardiopulmonary disease Diagnosis Hypertensive urgency Type 2 diabetes with persistent hyperglycemia Hyperosmolar hyperglycemic nonketotic state Acute on chronic renal failure, HTN nephropathy Left flank pain Abnormal cardiac enzymes Hyperkalemia Plan Optimize blood pressure medications Optimize insulins Stress test and echo were negative, cardiology input appreciated Left flank pain resolved, kidney imaging is negative, no further workup indicated He received Kayexalate for hyperkalemia. nephrology input appreciated, follow-up urine studies, follow-up daily kidney function Patient is self-pay, so therefore would benefits from being put on affordable medications. DVT prophylaxis with Lovenox History Interval history: Review of systems Constitutional: No fevers, no malaise, no joint pains CVS: No chest pain, no orthopnea, no dyspnea on exertion, no pedal edema GI: No abdominal pain, no diarrhea, no vomiting, no constipation Respiratory: No shortness of breath, no wheezing, no coughing Hospitalist Physical - Physical exam Narrative exam: General.: Appears well, no distress, nontoxic HEENT: Moist mucous membranes, extraocular muscles intact, no lymphadenopathy Neck: supple Cardiac: S1-S2 heard Lungs: clear to auscultation bilaterally Abdomen: soft , nontender, nondistended, bowel sounds positive Extremities: no edema clubbing or cyanosis Skin: no rash or lesions Neurologic: no gross focal deficits Psych: calm, and cooperative - Constitutional Vitals: Temp Pulse Resp BP Pulse Ox 98.1 F 87 18 165/89 99 04/13/18 11:34 04/13/18 11:35 04/13/18 11:35 04/13/18 11:35 04/13/18 11:35 General appearance: Present: no acute distress Results - Labs CBC & Chem 7: 04/12/18 06:26 04/13/18 05:50 Labs: Laboratory Last Values WBC 6.9 K/mm3 (4.5-11.0) 04/12/18 06:26 RBC 4.16 M/mm3 (3.65-5.03) 04/12/18 06:26 Hgb 11.4 gm/dl (11.8-15.2) L 04/12/18 06:26 Hct 36.6 % (35.5-45.6) 04/12/18 06:26 MCV 88 fl (84-94) 04/12/18 06:26 MCH 27 pg (28-32) L 04/12/18 06:26 MCHC 31 % (32-34) L 04/12/18 06:26 RDW 16.6 % (13.2-15.2) H 04/12/18 06:26 Plt Count 218 K/mm3 (140-440) 04/12/18 06:26 Lymph % (Auto) 34.5 % (13.4-35.0) 04/12/18 06:26 [place] % (Auto) 7.5 % (0.0-7.3) H 04/12/18 06:26 Eos % (Auto) 1.4 % (0.0-4.3) 04/12/18 06:26 Baso % (Auto) 1.0 % (0.0-1.8) 04/12/18 06:26 Lymph # 2.4 K/mm3 (1.2-5.4) 04/12/18 06:26 [place] # 0.5 K/mm3 (0.0-0.8) 04/12/18 06:26 Eos # 0.1 K/mm3 (0.0-0.4) 04/12/18 06:26 Baso # 0.1 K/mm3 (0.0-0.1) 04/12/18 06:26 Seg Neutrophils % 55.6 % (40.0-70.0) 04/12/18 06:26 Seg Neutrophils # 3.9 K/mm3 (1.8-7.7) 04/12/18 06:26 Sodium 133 mmol/L (137-145) L 04/13/18 05:50 Potassium 4.3 mmol/L (3.6-5.0) D 04/13/18 05:50 Chloride 102.2 mmol/L (98-107) 04/13/18 05:50 Carbon Dioxide 21 mmol/L (22-30) L 04/13/18 05:50 Anion Gap 14 mmol/L 04/13/18 05:50 BUN 30 mg/dL (9-20) H 04/13/18 05:50 Creatinine 3.3 mg/dL (0.8-1.5) H 04/13/18 05:50 Estimated GFR 25 ml/min 04/13/18 05:50 BUN/Creatinine Ratio 9 % 04/13/18 05:50 Glucose 185 mg/dL (75-100) H 04/13/18 05:50 POC Glucose 281 (70-105) H 04/13/18 11:36 Hemoglobin A1c 11.4 % (4-6) H 04/13/18 05:50 Calcium 8.4 mg/dL (8.4-10.2) 04/13/18 05:50 Total Creatine Kinase 248 units/L (55-170) H 04/12/18 06:26 CK-MB (CK-2) 4.5 ng/mL (0.0-4.0) H 04/12/18 06:26 CK-MB (CK-2) Rel Index 1.8 (0-4) 04/12/18 06:26 Troponin T 0.067 ng/mL (0.00-0.029) H 04/12/18 06:26 Triglycerides 117 mg/dL (2-149) 04/11/18 17:36 Cholesterol 172 mg/dL (50-199) 04/11/18 17:36 LDL Cholesterol Direct 99 mg/dL (50-130) 04/11/18 17:36 HDL Cholesterol 74 mg/dL (40-59) H 04/11/18 17:36 Cholesterol/HDL Ratio 2.32 % 04/11/18 17:36 PTH Intact 237.8 pg/mL (15-65) H 04/12/18 09:13 Nutrition/Malnutrition Assess - Dietary Evaluation Nutrition/Malnutrition Findings: Nutrition Notes Start: 04/12/18 16:17 Freq: Status: Active Protocol: Document 04/12/18 16:17 RM (Rec: 04/12/18 16:19 RM [id number]) Nutrition Notes Need for Assessment generated from: [employer] MST Initial or Follow up Brief Note Current Diagnosis Acute Kidney Injury Diabetes Hypertension Other Pertinent Diagnosis CKD Current Diet Renal,Cardiac Subjective/Other Information Pt screened for malnutrition and new onset DM diet education. Pt in bathroom at time of visit. Pt tech stated that pt ate most of his breakfast this morning. Nutrition Intervention Follow-Up By: 04/13/18 Additional Comments Follow for assessment, DM diet education
[2018-04-13] MEDS: NACL 0.45% 1000 ML 1,000 ML IV SCH (19:49)
[2018-04-13] MEDS: COREG PO SCH (21:30)
[2018-04-13] MEDS ORDERED: LOPRESSOR PO SCH (22:00)
--- NOTE | 2018-04-13 22:30 | Treadmill Report ---
NUCLEAR CARDIOLOGY PERFUSION STUDY REASON FOR STUDY: Abnormal troponin. IMAGING PROTOCOL: The patient received 10 mCi of Technetium 99m Tetrofosmin for resting image and 28 mCi of Technetium 99m Tetrofosmin for stress imaging. The imaging for the whole procedure was completed 30-90 minutes following the initial injection of Technetium 99m Tetrofosmin. The SPECT imaging in the 180 degree arc was performed in the right anterior oblique projection. Computerized reconstruction of the images was performed for analysis. IMAGING RESULTS: Normal cavity size from stress to rest. Normal distribution of radionuclide in the anterior, inferior, septal, and apical regions. Gated SPECT, EF 50% with no wall motion abnormality. The patient infused Lexiscan with no EKG changes. SUMMARY: 1. Negative Lexiscan EKG. 2. Normal rest and stress myocardial perfusion scan. No significant ischemia. No wall motion abnormality. Gated SPECT, EF 50%. JOB# [id number] OMAR/CHRISTIANO
--- NOTE | 2018-04-14 08:14 | Progress Note ---
Assessment and Plan - Patient Problems (1) RADHA (acute kidney injury) Current Visit: Yes Status: Acute Plan to address problem: Acute on likely chronic kidney disease secondary to uncontrolled hypertension, uncontrolled diabetes. Urine analysis as well as urine electrolytes pending . Renal ultrasound.We'll follow up on renal function daily. Avoid any nephrotoxins. Discussed with patient that he likely has late stage III/early stage IV CKD. He needs to follow up with me in the clinic within 2-3 weeks post discharge. Will order BMP this morning to assess renal function. If his renal function remain stable, and his blood pressures are stable, then from a renal standpoint he is appropriate for DC, but needs to follow up with us in the clinic in 2-3 weeks. (2) Hypertensive chronic kidney disease with stage 1 through stage 4 chronic kidney disease, or unspecified chronic kidney disease Current Visit: Yes Status: Chronic Plan to address problem: We'll started patient on hydralazine 50 mg twice a day. We'll also started him nifedipine 60 mg. We'll titrate medications as appropriate for blood pressure control. Patient also added on coreg. Expressed to patient the importance of low-salt diet. (3) Type 2 diabetes mellitus with diabetic chronic kidney disease Current Visit: Yes Status: Chronic Plan to address problem: Diabetes management per primary team. 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 Agree with optimal medical treatment and adequate blood sugar control. He should be on a low K diet. Labs pending this am. (5) Metabolic acidosis Current Visit: Yes Status: Acute Plan to address problem: Placed on sodium bicarbonate tablets 650 mg by mouth twice a day. (6) NSTEMI (non-ST elevated myocardial infarction) Current Visit: Yes Status: Acute Plan to address problem: Cardiology has been consulted. Stress test pending this am per nursing staff. We'll follow up with further recommendations. Subjective Date of service: 04/14/18 Principal diagnosis: HTN; CKD Interval history: No acute issues. No new labs this am. Blood pressures are stable and improving since admission. NM stress test was negative. Objective - Vital Signs Vital signs: Vital Signs - 12hr 04/13/18 04/14/18 04/14/18 23:24 04:53 05:07 Temperature 98.5 F 122.0 F H 98.2 F Pulse Rate 93 H 88 Respiratory 18 18 Rate Blood Pressure 141/85 140/86 O2 Sat by Pulse 98 99 Oximetry 04/14/18 07:17 Temperature 98.2 F Pulse Rate 93 H Respiratory 18 Rate Blood Pressure 143/97 O2 Sat by Pulse 99 Oximetry - General Appearance General appearance: well-developed, well-nourished, appears stated age EENT: ATNC, PERRL Neck: no JVD, no thyromegaly Respiratory: Present: Clear to Ascultation, Normal Exam Cardiology: regular, S1S2 Gastrointestinal: normal, normoactive bowel sounds Integumentary: no rash, warm and dry Neurologic: no focal deficit, no asterixis, CN 3-12 intact Musculoskeletal: other (-edema ) Psychiatric: mood/affect appropriate, cooperative - Lab 04/12/18 06:26 04/13/18 05:50 Most recent lab results Calcium 8.4 mg/dL (8.4-10.2) 04/13/18 05:50 - Imaging Kidney/bladder ultrasound: report reviewed - Allied health notes Allied health notes reviewed: nursing Medications & Allergies - Medications Allergies/Adverse Reactions: Allergies No Known Allergies Allergy (Unverified 03/18/13 16:02) Home Medications: Home Medications Medication Instructions Recorded Confirmed Last Taken Type Insulin NPH/Regular [Novolin 70/30] 40 units SUB-Q BID 03/18/13 04/13/18 Unknown History Ciprofloxacin HCl [Ciprofloxacin 500 mg PO BID #20 tablet 03/19/13 04/13/18 Unknown Rx TAB] Famotidine [Pepcid] 10 mg PO BID #20 tablet 03/19/13 04/13/18 Unknown Rx Hydrocodone Bit/Acetaminophen 1 - 2 each PO Q4-6H PRN #12 tablet 03/19/13 04/13/18 Unknown Rx [Lortab 5-500 Tablet] Active Medications: Generic Name Dose Route Start Last Admin Trade Name Freq PRN Reason Stop Dose Admin Acetaminophen 650 mg 04/12/18 00:36 Tylenol PO Q4H PRN Pain MILD(1-3)/Fever >100.5/DIA Carvedilol 12.5 mg 04/13/18 22:00 04/13/18 21:30 Coreg PO 12.5 mg BID JUAN DANIEL Administration Dextrose 50 ml 04/12/18 09:00 04/13/18 16:07 D50w (25gm) Syringe IV 50 ml PRN PRN Administration Hypoglycemia Enoxaparin Sodium 30 mg 04/12/18 10:00 04/13/18 10:20 Lovenox SUB-Q 30 mg QDAY JUAN DANIEL Administration Famotidine 10 mg 04/12/18 10:00 04/13/18 21:29 Pepcid PO 10 mg BID JUAN DANIEL Administration Hydralazine HCl 50 mg 04/12/18 10:00 04/13/18 21:30 Apresoline PO 50 mg BID JUAN DANIEL Administration Hydralazine HCl 20 mg 04/12/18 08:17 Apresoline IV Q6H PRN Hypertension Sodium Chloride 1,000 mls @ 75 mls/hr 04/11/18 23:45 04/13/18 19:49 Nacl 0.45% 1000 Ml IV 75 mls/hr DIRECT JUAN DANIEL Administration Insulin Human Isoph/Insulin Regular 20 unit 04/13/18 17:22 Humulin 70/30 SUB-Q BIDDIAB JUAN DANIEL Insulin Human Lispro 0 unit 04/12/18 11:30 04/13/18 22:00 Humalog SUB-Q Not Given ACHS [facility] Protocol Nifedipine 60 mg 04/12/18 10:00 04/13/18 10:17 Procardia Xl PO 60 mg QDAY JUAN DANIEL Administration Ondansetron HCl 4 mg 04/12/18 00:36 Zofran IV Q8H PRN Nausea And Vomiting Oxycodone/Acetaminophen 1 tab 04/12/18 00:36 04/13/18 18:58 Percocet 5/325 PO 1 tab Q6H PRN Administration Pain, Moderate (4-6) Sodium Bicarbonate 650 mg 04/12/18 10:00 04/13/18 21:29 Sodium Bicarbonate PO 650 mg BID JUAN DANIEL Administration Sodium Chloride 10 ml 04/12/18 10:00 04/13/18 22:10 Sodium Chloride Flush Syringe 10 Ml IV Not Given BID JUAN DANIEL Sodium Chloride 10 ml 04/12/18 00:36 Sodium Chloride Flush Syringe 10 Ml IV PRN PRN LINE FLUSH
[2018-04-14] MEDS ORDERED: APRESOLINE PO SCH ×2 (10:00)
[2018-04-14] MEDS: PROCARDIA XL PO SCH (10:01)
[2018-04-14] MEDS: HumaLOG SUB-Q SCH ×2 (10:02→13:04)
[2018-04-14] MEDS: SODIUM BICARBONATE PO SCH (10:02)
[2018-04-14] MEDS: PEPCID PO SCH (10:02)
[2018-04-14] MEDS: COREG PO SCH (10:02)
[2018-04-14] MEDS: LOVENOX SUB-Q SCH (10:06)
[2018-04-14] MEDS: SODIUM CHLORIDE FLUSH SYRINGE 10 ML IV SCH (10:08)
--- NOTE | 2018-04-14 10:40 | Discharge Summary ---
Providers - Providers Date of Admission: 04/11/18 23:09 Attending physician: JOSE CATHERINE MD 04/12/18 00:36 Consult to Physician [CONS] Routine Comment: Consulting Provider: JOVANI PAINTER Physician Instructions: Reason For Exam: arf on chr Consult to Physician [CONS] Routine Comment: Consulting Provider: PAL FERMIN Physician Instructions: Reason For Exam: ab CE Primary care physician: OVIDIO MELLO Hospitalization Condition: Stable Hospital course: 42-year-old man who presented to the hospital with elevated blood pressure. Was complaining of headache. He ran out of his blood pressure meds which were namely amlodipine and clonidine for quite some time. he had systolic blood pressure in the 200s, therefore he was admitted. Past medical history includes hypertension, type [address] abdomen and pelvis shows few punctate calyceal stones in both kidneys, no ureteral stones or hydronephrosis, Renal ultrasound shows renal parenchymal disease Chest x-ray is negative for acute cardiopulmonary disease Diagnosis Hypertensive urgency Type 2 diabetes with persistent hyperglycemia Hyperosmolar hyperglycemic nonketotic state Acute on chronic renal failure, HTN nephropathy Left flank pain- musculoskeletal in origin Abnormal cardiac enzymes Hyperkalemia Hospital course Optimized blood pressure medications Optimized insulins Stress test and echo were negative, cardiology input appreciated Left flank pain resolved, kidney imaging is negative, UA neg, no further workup indicated He received Kayexalate for hyperkalemia. kidney function improved and then stablized with IVF, nephrology was comanaging the pateint Patient is self-pay, so therefore was given meds which were affordable Disposition: DC-01 TO HOME OR SELFCARE Time spent for discharge: 33 mins Core Measure Documentation - Palliative Care Palliative Care/ Comfort Measures: Not Applicable - Core Measures Any of the following diagnoses?: none Exam - Constitutional Vitals: Temp Pulse Resp BP Pulse Ox 98.2 F 93 H 18 143/97 99 04/14/18 07:17 04/14/18 10:02 04/14/18 07:17 04/14/18 10:02 04/14/18 07:17 General appearance: Present: no acute distress, well-nourished - EENT Eyes: Present: PERRL ENT: hearing intact, clear oral mucosa - Neck Neck: Present: supple, normal ROM - Respiratory Respiratory effort: normal Respiratory: bilateral: CTA - Cardiovascular Heart Sounds: Present: S1 & S2. Absent: rub, click - Extremities Extremities: pulses symmetrical, No edema Peripheral Pulses: within normal limits - Abdominal General gastrointestinal: Present: soft, non-tender, non-distended, normal bowel sounds Male genitourinary: Present: normal - Integumentary Integumentary: Present: clear, warm, dry - Musculoskeletal Musculoskeletal: gait normal, strength equal bilaterally - Psychiatric Psychiatric: appropriate mood/affect, intact judgment & insight - Neurologic Neurologic: CNII-XII intact, moves all extremities Plan Follow up with: OVIDIO MELLO MD [Primary Care Provider] - 3-5 Days Forms: Work/School Release Form Prescriptions: Carvedilol [Coreg] 12.5 mg PO BID #60 tablet Insulin NPH Hum/Reg Insulin Hm [HumuLIN 70-30 Vial] 20 unit SQ BIDAC #1 vial NIFEdipine XL [Procardia Xl] 60 mg PO QDAY #30 tablet Sodium Bicarbonate 650 mg PO BID #60 tablet
[2018-04-14 11:06] LABS: Calcium 8.1 mg/dL (8.4-10.2)
--- NOTE | 2018-04-14 11:59 | Progress Note ---
Assessment and Plan Optimize anti-hypertensive regimen - increase hydralazine. Follow nephrology recs. The patient has been seen in conjunction with Dr. Cox who agrees with the assessment and plan of care. - Patient Problems (1) Uncontrolled hypertension Current Visit: Yes Status: Acute (2) Elevated troponin Current Visit: Yes Status: Acute (3) CKD (chronic kidney disease) Current Visit: Yes Status: Chronic (4) Diabetes mellitus Current Visit: Yes Status: Chronic Qualifiers: Diabetes mellitus type: type 2 Subjective Date of service: 04/14/18 Principal diagnosis: HTN; CKD Interval history: pt resting in bed, no current complaints. Objective Last Vital Signs Temp 98.2 F 04/14/18 07:17 Pulse 93 H 04/14/18 10:02 Resp 18 04/14/18 07:17 BP 143/97 04/14/18 10:02 Pulse Ox 100 04/14/18 10:00 - Physical Examination General: No Apparent Distress HEENT: Positive: EOMI, Normocephaly, Mucus Membranes Moist Neck: Positive: neck supple, trachea midline Cardiac: Positive: Reg Rate and Rhythm, S1/S2 Lungs: Positive: clear to auscultation Neuro: Positive: Grossly Intact Abdomen: Positive: Soft, Active Bowel Sounds. Negative: Tender Skin: Positive: Clear. Negative: Rash Musculoskeletal: Normal Range of Motion Extremities: Present: normal. Absent: edema - Labs and Meds Comprehensive Metabolic Panel 04/14/18 Range/Units 10:10 Sodium 137 (137-145) mmol/L Potassium 4.8 (3.6-5.0) mmol/L Chloride 102.3 (98-107) mmol/L Carbon Dioxide 21 L (22-30) mmol/L BUN 26 H (9-20) mg/dL Creatinine 3.5 H (0.8-1.5) mg/dL Glucose 354 H (75-100) mg/dL Calcium 8.1 L (8.4-10.2) mg/dL - Imaging and Cardiology EKG: image reviewed Echo: report reviewed (EF 65-70%, mod LVH, impaired relaxation. ) - Telemetry EKG Rhythm: Sinus Rhythm - EKG Sinus rhythms and dysrhythmias: sinus rhythm Chamber hypertrophy or enlargement: left atrial enlargement, right atrial enlargment, left ventricular hypertro - Allied health notes Allied health notes reviewed: nursing
[2018-04-14 12:34] VITALS: BP 137/75
== END 2018-04-14 13:54 | disposition home or self-care (01) | DRG 682 ==
LOC: ED 16:54 → 4A 23:09
PROVIDERS: ADMIT Internal Medicine; ATTEND Internal Medicine
DX: N17.9 Acute kidney failure, unspecified (principal); E11.00 Type 2 diabetes mellitus with hyperosmolarity without nonketotic hyperglycemic-hyperosmolar coma (NKHHC); I16.0 Hypertensive urgency; E11.22 Type 2 diabetes mellitus with diabetic chronic kidney disease; I12.9 Hypertensive chronic kidney disease with stage 1 through stage 4 chronic kidney disease, or unspecified chronic kidney disease; N18.9 Chronic kidney disease, unspecified; F17.210 Nicotine dependence, cigarettes, uncomplicated; E11.65 Type 2 diabetes mellitus with hyperglycemia; E87.5 Hyperkalemia; Z82.49 Family history of ischemic heart disease and other diseases of the circulatory system; Z90.49 Acquired absence of other specified parts of digestive tract; Z89.421 Acquired absence of other right toe(s); Z79.4 Long term (current) use of insulin; Z83.3 Family history of diabetes mellitus
CPT/HCPCS: 36415; 71045; 74176; 76770; 78452; 80048; 80061; 82550; 82553; 82962; 83036; 83970; 84484; 85025; 93005; 93010; 93017; 93306; G0378; A9502; J0360; J1650; J1815; J2785; J7030

== ENCOUNTER 2019-05-04 19:21 | Inpatient (IN) | payer OTHER ==
[2019-05-04] MEDS ORDERED: ONDANSETRON 4 MG/2 ML INJ IV ONE ×2 (19:45→21:30)
--- NOTE | 2019-05-04 19:53 | Emergency Department Report ---
ED Abdominal Pain HPI - General Chief Complaint: Nausea/Vomiting/Diarrhea Stated Complaint: EMESIS/FEVER Time Seen by Provider: 05/04/19 19:44 Source: patient, EMS Mode of arrival: Wheelchair Limitations: No Limitations - History of Present Illness Initial Comments: Patient is 43 years old male with history of hypertension, diabetes and stage IV kidney disease. Patient presented to the ER via EMS complaining of diffuse abdominal pain, nausea, vomiting and watery diarrhea since this morning. Patient denied any fever or chills. Patient also denied any chest pain or shortness of breath. MD Complaint: abdominal pain -: This morning Location: diffuse Radiation: none Migration to: no migration Severity: moderate Severity scale (0 -10): 6 Quality: cramping - Related Data Previous Rx's Medication Instructions Recorded Last Taken Type Famotidine [Pepcid] 10 mg PO BID #20 tablet 03/19/13 Unknown Rx Insulin NPH Hum/Reg Insulin Hm 20 unit SQ BIDAC #1 vial 04/14/18 Unknown Rx [HumuLIN 70-30 Vial] NIFEdipine XL [Procardia Xl] 60 mg PO QDAY #30 tablet 04/14/18 Unknown Rx Sodium Bicarbonate 650 mg PO BID #60 tablet 04/14/18 Unknown Rx carvediloL [Coreg] 12.5 mg PO BID #60 tablet 04/14/18 Unknown Rx Allergies Allergy/AdvReac Type Severity Reaction Status Date / Time No Known Allergies Allergy Unverified 03/18/13 16:02 ED Review of Systems ROS: Stated complaint: EMESIS/FEVER Other details as noted in HPI Comment: All other systems reviewed and negative Constitutional: denies: chills, fever Respiratory: denies: cough, shortness of breath, SOB with exertion, wheezing Cardiovascular: denies: chest pain Gastrointestinal: abdominal pain, nausea, vomiting, diarrhea. denies: const ipation, hematemesis, melena, hematochezia Musculoskeletal: denies: back pain Neurological: denies: headache, weakness ED Past Medical Hx - Past Medical History Previous Medical History?: Yes Hx Hypertension: Yes Hx Congestive Heart Failure: No Hx Diabetes: Yes Hx Asthma: No Hx COPD: No - Surgical History Past Surgical History?: Yes Hx Appendectomy: Yes Additional Surgical History: right great toe amputated - Social History Smoking Status: Current Every Day Smoker Substance Use Type: None - Medications Home Medications: Home Medications Medication Instructions Recorded Confirmed Last Taken Type Famotidine [Pepcid] 10 mg PO BID #20 tablet 03/19/13 04/13/18 Unknown Rx Insulin NPH Hum/Reg Insulin Hm 20 unit SQ BIDAC #1 vial 04/14/18 Unknown Rx [HumuLIN 70-30 Vial] NIFEdipine XL [Procardia Xl] 60 mg PO QDAY #30 tablet 04/14/18 Unknown Rx Sodium Bicarbonate 650 mg PO BID #60 tablet 04/14/18 Unknown Rx carvediloL [Coreg] 12.5 mg PO BID #60 tablet 04/14/18 Unknown Rx ED Physical Exam - General Limitations: No Limitations General appearance: alert, other (Patient is actively vomiting in the emergency) - Eye Eye exam: Present: normal appearance - ENT ENT exam: Present: mucous membranes dry - Neck Neck exam: Present: normal inspection, full ROM. Absent: tenderness, meningismus, lymphadenopathy, thyromegaly - Respiratory Respiratory exam: Present: normal lung sounds bilaterally - Cardiovascular Cardiovascular Exam: Present: regular rate, normal rhythm, normal heart sounds - GI/Abdominal GI/Abdominal exam: Present: soft, normal bowel sounds. Absent: distended, tenderness, guarding, rebound, rigid, organomegaly, mass, bruit, pulsatile mass, hernia - Extremities Exam Extremities exam: Present: normal inspection, full ROM, normal capillary refill - Back Exam Back exam: Absent: CVA tenderness (R), CVA tenderness (L) - Neurological Exam Neurological exam: Present: alert, oriented X3, CN II-XII intact - Psychiatric Psychiatric exam: Present: normal mood - Skin Skin exam: Present: warm, intact ED Course Vital Signs 05/04/19 05/04/19 05/04/19 19:48 19:53 20:00 Temperature Pulse Rate 90 94 H 83 Respiratory 14 20 18 Rate Blood Pressure 213/93 Blood Pressure 213/93 [left arm] O2 Sat by Pulse 100 100 100 Oximetry 05/04/19 05/04/19 05/04/19 20:03 20:16 20:30 Temperature 97.4 F L Pulse Rate 99 H 99 H Respiratory 18 28 H Rate Blood Pressure 219/126 219/126 Blood Pressure [left arm] O2 Sat by Pulse 100 100 Oximetry 05/04/19 05/04/19 05/04/19 20:46 21:00 22:12 Temperature Pulse Rate 108 H 102 H Respiratory 24 26 H Rate Blood Pressure 219/126 213/93 219/126 Blood Pressure [left arm] O2 Sat by Pulse 100 100 Oximetry 05/04/19 05/05/19 05/05/19 23:00 00:04 00:24 Temperature Pulse Rate 85 94 H Respiratory 15 Rate Blood Pressure 219/126 238/123 238/123 Blood Pressure [left arm] O2 Sat by Pulse 100 100 Oximetry ED Medical Decision Making - Lab Data Result diagrams: 05/04/19 20:05 05/04/19 20:05 - EKG Data -: EKG Interpreted by Me EKG shows normal: sinus rhythm Rate: normal - EKG Data Interpretation: no acute changes - Radiology Data Radiology results: report reviewed - Medical Decision Making Patient is 43 years old male with history of hypertension, diabetes and stage IV kidney disease. Patient presented to the ER via EMS complaining of diffuse abdominal pain, nausea, vomiting and watery diarrhea since this morning. Patient denied any fever or chills. Patient also denied any chest pain or shortness of breath. Patient received Zofran twice and still vomiting. Patient given Reglan and stated that it did help. Patient found to have a blood pressure of 238/120. Patient given hydralazine [address] abdomen and pelvis is unremarkable for acute finding. I discussed the patient with Dr. Finley, he agreed to admit the patient to medical service for further management. Critical Care Time: Yes Critical care time in (mins) excluding proc time.: 30 Critical care attestation.: If time is entered above; I have spent that time in minutes in the direct care of this critically ill patient, excluding procedure time. ED Disposition Clinical Impression: Acute on chronic renal failure, Intractable vomiting with nausea, Hypertensive emergency Disposition: DC-09 OP ADMIT IP TO THIS HOSP Is pt being admited?: Yes Condition: Stable Instructions: Hypertension (ED) Referrals: PRIMARY CARE, [Primary Care Provider] - 3-5 Days
[2019-05-04] MEDS ORDERED: DICYCLOMINE 20 MG/2 ML INJ IM ONE ×2 (20:20→20:21)
[2019-05-04 20:24] LABS: Hematocrit 37.8 % (35.5-45.6); Mean Corpuscular HGB Conc 32 % (32-34); Mean Corpuscular Volume 86 fl (84-94); Platelet Count 224 K/mm3 (140-440); Red Blood Count 4.38 M/mm3 (3.65-5.03); Red Cell Distribution Width 14.5 % (13.2-15.2)
[2019-05-04 20:40] LABS: Alanine Aminotransferase 32 units/L (7-56); Albumin 4.2 g/dL (3.9-5); BUN/Creatinine Ratio 9; Blood Urea Nitrogen 44 mg/dL (9-20); Calcium 10.2 mg/dL (8.4-10.2); Hemolysis Index 6
[2019-05-04 20:42] LABS: Bilirubin,Direct < 0.2 mg/dL (0-0.2)
[2019-05-04 21:33] LABS: Eosinophils % (Manual) 0 % (0.0-4.3); Total Cells Counted 100
[2019-05-04 21:34] LABS: Macrocytosis Few; Stomatocytes Rare
[2019-05-04 21:35] LABS: Large Platelets Few; Platelet Estimate Consistent w Auto
--- NOTE | 2019-05-04 22:24 | Cat Scan Report ---
CT ABDOMEN AND PELVIS WITHOUT CONTRAST INDICATION / CLINICAL INFORMATION: ABDOMINAL PAIN. TECHNIQUE: Axial CT images were obtained through the abdomen and pelvis without IV contrast. All CT scans at [facility] location are performed using CT dose reduction for ALARA by means of automated exposure control. COMPARISON: 04/12/2018 FINDINGS: LOWER CHEST: Minimum patchy parenchymal changes both lower lobes LIVER: No significant abnormality. GALLBLADDER: No significant abnormality. BILE DUCTS: No significant abnormality. PANCREAS: No significant abnormality. SPLEEN: No significant abnormality. ADRENALS: No significant abnormality. RIGHT KIDNEY and URETER: Several punctate calcifications are present. LEFT KIDNEY and URETER: Several punctate calcifications are present. STOMACH and SMALL BOWEL: No significant abnormality. COLON: No significant abnormality. APPENDIX: No significant abnormality. PERITONEUM: No free fluid. No free air. No fluid collection. LYMPH NODES: No significant adenopathy. AORTA and ARTERIES: Multifocal extensive calcified atherosclerotic plaque IVC and VEINS: No significant abnormality. URINARY BLADDER: No significant abnormality. REPRODUCTIVE ORGANS: No significant abnormality. ADDITIONAL FINDINGS: None. SKELETAL SYSTEM: No significant abnormality. IMPRESSION: 1. Minimum patchy parenchymal changes lower lobes 2. Bilateral punctate calcifications Signer Name: Jayce Rodrigues MD Signed: 05/04/2019 10:19 PM Workstation Name: [id number]
[2019-05-04] MEDS ORDERED: MORPHINE 2 MG/1 ML INJ ONE (23:40)
[2019-05-04] MEDS ORDERED: MORPHINE 4 MG/1 ML INJ IV ONE (23:44)
[2019-05-04] MEDS ORDERED: MORPHINE 2 MG/1 ML INJ IV ONE (23:47)
[2019-05-05] MEDS ORDERED: METOCLOPRAMIDE 10 MG/2 ML INJ IV ONE (00:16)
[2019-05-05] MEDS ORDERED: hydrALAZINE 20 MG/1 ML INJ IV ONE (00:16)
[2019-05-05] MEDS: niCARdipine 50 MG in SODIUM CHLORIDE 0.9% 250ML 230 ML IV SCH ×5 (01:08→20:09)
[2019-05-05] MEDS ORDERED: MAGNESIUM HYDROXIDE (MOM) ORAL LIQD UDC PO PRN (02:01)
--- NOTE | 2019-05-05 02:33 | History and Physical Report ---
History of Present Illness Date of examination: 05/05/19 Date of admission: 05/05/19 00:43 Chief complaint: Nausea and Vomiting. History of present illness: 43-year-old -[place] male with known history of hypertension, diabetes mellitus and chronic kidney disease presenting to the emergency room today complaining of nausea and vomiting and also diarrhea which has been ongoing for about 24 hours. He has had associated abdominal pain. He denies any fever or chills, no chest pain or shortness of breath, no headache or dizziness. He has been unable to take his blood pressure medication today because of the nausea and vomiting. Upon arrival in the emergency room blood pressure was in the 200s systolic and the low 100s diastolic. He was given IV hydralazine without any significant improvement in his blood pressure. Patient subsequently started on Cardene drip. His work-up was significant for worsening kidney function. Past History Past Medical History: diabetes, hypertension Past Surgical History: Other (Right great toe amputation) Social history: smoking (Daily smoker) Family history: no significant family history Medications and Allergies Allergies Allergy/AdvReac Type Severity Reaction Status Date / Time No Known Allergies Allergy Unverified 03/18/13 16:02 Home Medications Medication Instructions Recorded Confirmed Last Taken Type Famotidine [Pepcid] 10 mg PO BID #20 tablet 03/19/13 04/13/18 Unknown Rx Insulin NPH Hum/Reg Insulin Hm 20 unit SQ BIDAC #1 vial 04/14/18 Unknown Rx [HumuLIN 70-30 Vial] NIFEdipine XL [Procardia Xl] 60 mg PO QDAY #30 tablet 04/14/18 Unknown Rx Sodium Bicarbonate 650 mg PO BID #60 tablet 04/14/18 Unknown Rx carvediloL [Coreg] 12.5 mg PO BID #60 tablet 04/14/18 Unknown Rx Active Meds: Active Medications Nicardipine HCl 50 mg/ Sodium (Chloride) 250 mls @ 25 mls/hr IV TITR JUAN DANIEL; Protocol Last Admin: 05/05/19 01:08 Dose: 5 mg/hr, 25 mls/hr Documented by: Sodium Chloride (Nacl 0.9% 1000 Ml) 1,000 mls @ 125 mls/hr IV DIRECT JUAN DANIEL Magnesium Hydroxide (Milk Of Magnesia) 30 ml PO Q4H PRN PRN Reason: Constipation Morphine Sulfate (Morphine) 2 mg IV Q4H PRN PRN Reason: Pain, Moderate (4-6) Sodium Chloride (Sodium Chloride Flush Syringe 10 Ml) 10 ml IV BID JUAN DANIEL Sodium Chloride (Sodium Chloride Flush Syringe 10 Ml) 10 ml IV PRN PRN PRN Reason: LINE FLUSH Review of Systems Constitutional: no fever, no chills Cardiovascular: no chest pain, no palpitations Respiratory: no cough, no shortness of breath Gastrointestinal: abdominal pain, nausea, vomiting, no diarrhea Genitourinary Male: no dysuria, no hematuria Musculoskeletal: no neck pain, no low back pain Integumentary: no rash, no pruritis Neurological: no headaches, no change in mentation Exam - Constitutional Vitals: Temp Pulse Resp BP Pulse Ox 98.3 F 116 H 14 155/88 100 05/05/19 01:04 05/05/19 02:00 05/05/19 02:00 05/05/19 02:00 05/05/19 01:30 General appearance: Present: no acute distress, well-nourished - EENT Eyes: Present: PERRL, EOM intact ENT: hearing intact, clear oral mucosa, dentition normal - Neck Neck: Present: supple, normal ROM - Respiratory Respiratory effort: normal Respiratory: bilateral: CTA - Cardiovascular Rhythm: regular Heart Sounds: Present: S1 & S2 - Extremities Extremities: no ischemia, pulses intact, No edema, Full ROM Peripheral Pulses: within normal limits - Abdominal General gastrointestinal: Present: soft, non-tender, non-distended - Integumentary Integumentary: Present: clear, warm, dry - Musculoskeletal Musculoskeletal: strength equal bilaterally - Psychiatric Psychiatric: appropriate mood/affect, intact judgment & insight, cooperative - Neurologic Neurologic: CNII-XII intact, moves all extremities Results - Labs CBC & Chem 7: 05/04/19 20:05 05/04/19 20:05 Labs: Abnormal lab results 05/04/19 05/04/19 05/04/19 Range/Units 20:05 20:05 20:07 WBC 14.3 H (4.5-11.0) K/mm3 Seg Neuts % (Manual) 84.0 H (40.0-70.0) % Lymphocytes % (Manual) 12.0 L (13.4-35.0) % Seg Neutrophils # Man 12.0 H (1.8-7.7) K/mm3 Sodium 148 H (137-145) mmol/L BUN 44 H (9-20) mg/dL Creatinine 4.8 H (0.8-1.5) mg/dL Glucose 235 H (75-100) mg/dL POC Glucose 208 H (70-105) Alkaline Phosphatase 142 H (35-129) units/L 05/05/19 Range/Units 01:49 WBC (4.5-11.0) K/mm3 Seg Neuts % (Manual) (40.0-70.0) % Lymphocytes % (Manual) (13.4-35.0) % Seg Neutrophils # Man (1.8-7.7) K/mm3 Sodium (137-145) mmol/L BUN (9-20) mg/dL Creatinine (0.8-1.5) mg/dL Glucose (75-100) mg/dL POC Glucose 272 H (70-105) Alkaline Phosphatase (35-129) units/L Assessment and Plan - Patient Problems (1) Hypertensive emergency Current Visit: Yes Status: Acute Plan to address problem: Patient has been placed on Cardene drip. Will titrate according to protocol. Blood pressure will be closely monitored. (2) Acute on chronic renal failure Current Visit: Yes Status: Acute Plan to address problem: Possibly secondary to the intractable nausea vomiting and the diarrhea. We will monitor renal function and continue IV fluid. Consult will be placed to nephrology for further evaluation and recommendation. (3) Intractable vomiting with nausea Current Visit: Yes Status: Acute Plan to address problem: We will place patient on IV fluid and also placed on IV Zofran. 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 (5) DVT prophylaxis Current Visit: Yes Status: Acute Plan to address problem: Patient placed on subcutaneous heparin. (6) Full code status Current Visit: Yes Status: Acute
[2019-05-05 02:35] LABS: Bilirubin,Urine NEG (Negative); Blood,Urine NEG (Negative); Color,Urine Straw (Yellow); Urobilinogen,Urine < 2.0 mg/dL (<2.0); WBC,Urine < 1.0 /HPF (0.0-6.0)
[2019-05-05] MEDS ORDERED: METOPROLOL TARTRATE 5 MG/5 ML INJ IV ONE (03:14)
[2019-05-05] MEDS ORDERED: FAMOTIDINE 20 MG/2 ML INJ IV ONE (03:15)
[2019-05-05] MEDS: INSULIN LISPRO 100 UNIT/ML SUB-Q SCH ×5 (03:15→21:35)
[2019-05-05] MEDS ORDERED: ONDANSETRON 4 MG/2 ML INJ IV ONE (03:15)
[2019-05-05] MEDS: SODIUM CHLORIDE 0.9% 1000 ML 1,000 ML IV SCH ×3 (03:45→20:08)
[2019-05-05] MEDS: MORPHINE 2 MG/1 ML INJ IV PRN ×2 (04:25→09:00)
[2019-05-05] MEDS: ONDANSETRON 4 MG/2 ML INJ IV PRN (08:18)
--- NOTE | 2019-05-05 09:37 | Consultation ---
History of Present Illness Consult date: 05/05/19 Past History Past Medical History: diabetes, hypertension Past Surgical History: Other (Right great toe amputation) Social history: smoking (Daily smoker) Family history: no significant family history Medications and Allergies Allergies Allergy/AdvReac Type Severity Reaction Status Date / Time No Known Allergies Allergy Unverified 03/18/13 16:02 Home Medications Medication Instructions Recorded Confirmed Last Taken Type AtorvaSTATin [Lipitor] 40 mg PO QHS 05/05/19 05/05/19 Unknown History Calcitriol (Nf) 25 mg PO DAILY 05/05/19 05/05/19 Unknown History Furosemide [Lasix TAB] 40 mg PO QDAY 05/05/19 05/05/19 Unknown History Insulin Detemir [Levemir VIAL] 28 units SC DAILY 05/05/19 05/05/19 Unknown History Insulin Lispro [Admelog] 8 unit SQ TID 05/05/19 05/05/19 Unknown History Iron 325 mg PO DAILY 05/05/19 05/05/19 Unknown History NIFEdipine [Adalat cc] 90 mg PO DAILY 05/05/19 05/05/19 Unknown History carvediloL [Coreg] 25 mg PO BID 05/05/19 05/05/19 Unknown History Active Meds: Active Medications Heparin Sodium (Porcine) (Heparin) 5,000 unit SUB-Q Q8HR [facility] Nicardipine HCl 50 mg/ Sodium (Chloride) 250 mls @ 25 mls/hr IV TITR JUAN DANIEL; Pr otocol Last Titration: 05/05/19 08:10 Dose: 12 mg/hr, 60 mls/hr Documented by: Sodium Chloride (Nacl 0.9% 1000 Ml) 1,000 mls @ 125 mls/hr IV DIRECT JUAN DANIEL Last Admin: 05/05/19 03:45 Dose: 125 mls/hr Documented by: Insulin Human Lispro (Humalog) 0 unit SUB-Q ACHS [facility]UAN DANIEL; Protocol Last Admin: 05/05/19 08:18 Dose: 4 unit Documented by: Magnesium Hydroxide (Milk Of Magnesia) 30 ml PO Q4H PRN PRN Reason: Constipation Morphine Sulfate (Morphine) 2 mg IV Q4H PRN PRN Reason: Pain, Moderate (4-6) Last Admin: 05/05/19 09:00 Dose: 2 mg Documented by: Ondansetron HCl (Zofran) 4 mg IV Q4H PRN PRN Reason: Nausea And Vomiting Last Admin: 05/05/19 08:18 Dose: 4 mg Documented by: Sodium Chloride (Sodium Chloride Flush Syringe 10 Ml) 10 ml IV BID [facility]UAN DANIEL Last Admin: 05/05/19 09:01 Dose: 10 ml Documented by: Sodium Chloride (Sodium Chloride Flush Syringe 10 Ml) 10 ml IV PRN PRN PRN Reason: LINE FLUSH Physical Examination Vital signs: Vital Signs Pulse Resp Pulse Ox 90 14 100 05/04/19 19:48 05/04/19 19:48 05/04/19 19:48 Results - Laboratory Findings CBC and BMP: 05/04/19 20:05 05/04/19 20:05 Abnormal lab findings: Abnormal Labs 05/04/19 05/04/19 05/04/19 20:05 20:05 20:07 WBC 14.3 H Seg Neuts % (Manual) 84.0 H Lymphocytes % (Manual) 12.0 L Seg Neutrophils # Man 12.0 H Sodium 148 H BUN 44 H Creatinine 4.8 H Glucose 235 H POC Glucose 208 H Alkaline Phosphatase 142 H Urine pH 05/05/19 05/05/19 05/05/19 01:49 02:18 03:14 WBC Seg Neuts % (Manual) Lymphocytes % (Manual) Seg Neutrophils # Man Sodium BUN Creatinine Glucose POC Glucose 272 H 324 H Alkaline Phosphatase Urine pH 8.0 H
[2019-05-05] MEDS: METOPROLOL TARTRATE 5 MG/5 ML INJ IV SCH ×2 (11:08→17:35)
[2019-05-05] MEDS: FAMOTIDINE 20 MG/2 ML INJ IV SCH (11:08)
[2019-05-05] MEDS ORDERED: INSULIN GLARGINE 100 UNITS/ML SUB-Q ONE (12:00)
[2019-05-05] MEDS: HEPARIN 5,000 UNIT/1 ML VIAL SUB-Q SCH ×2 (13:45→21:42)
[2019-05-05] MEDS ORDERED: NON-FORMULARY EACH (Nifedipine [Adalat Cc] 90 MG) PO SCH (14:00)
[2019-05-05] MEDS: NIFEdipine XL 90 MG TAB PO SCH (14:59)
--- NOTE | 2019-05-05 15:18 | XRay Report ---
CHEST 1 VIEW INDICATION / CLINICAL INFORMATION: CP/SOB/ TACHYCARDIA. COMPARISON: 04/11/2018 FINDINGS: SUPPORT DEVICES: None. HEART / MEDIASTINUM: No significant abnormality. LUNGS / PLEURA: No significant pulmonary or pleural abnormality. No pneumothorax. ADDITIONAL FINDINGS: No significant additional findings. IMPRESSION: No acute pulmonary or pleural abnormality. No change from 04/11/2018 Signer Name: Tyrone Francis MD FACMarc Signed: 05/05/2019 3:14 PM Workstation Name: [id number]
--- NOTE | 2019-05-05 15:28 | Nuclear Medicine Report ---
NM LUNG SCAN PERF/VENT INDICATION / CLINICAL INFORMATION: tachycardia, sob. TECHNIQUE: Dose / Agent / Route: 14 mCi of xenon-133 gas was inhaled. 4.5 mCi of technetium 99 MAA was then inje cted intravenously COMPARISON: No relevant prior imaging study available. FINDINGS: Ventilation images show no significant air trapping. Perfusion images showed no significant segmental or subsegmental defect. IMPRESSION: Low probability of pulmonary embolus Signer Name: Tyrone Francis MD FACR Signed: 05/05/2019 3:23 PM Workstation Name: [id number]
[2019-05-05] MEDS ORDERED: INSULIN LISPRO 100 UNIT/ML SUB-Q SCH (16:30)
[2019-05-05] MEDS: carvediloL 25 MG TAB PO SCH (21:42)
[2019-05-05] MEDS ORDERED: carvediloL 25 MG TAB PO SCH (22:00)
[2019-05-05] MEDS ORDERED: INSULIN GLARGINE 100 UNITS/ML SUB-Q SCH (22:00)
[2019-05-06] MEDS: MORPHINE 2 MG/1 ML INJ IV PRN (00:26)
[2019-05-06] MEDS: niCARdipine 50 MG in SODIUM CHLORIDE 0.9% 250ML 230 ML IV SCH (00:26)
[2019-05-06] MEDS: ONDANSETRON 4 MG/2 ML INJ IV PRN (00:26)
[2019-05-06] MEDS: SODIUM CHLORIDE 0.9% 1000 ML 1,000 ML IV SCH ×2 (03:57→13:19)
[2019-05-06 05:30] LABS: Basophils # (Auto) 0.1 K/mm3 (0.0-0.1); Basophils % (Auto) 0.6 % (0.0-1.8); Eosinophils # (Auto) 0.1 K/mm3 (0.0-0.4); Eosinophils % (Auto) 0.7 % (0.0-4.3); Hematocrit 31.9 % (35.5-45.6); Hemoglobin 10.3 gm/dl (11.8-15.2); Lymphocytes # (Auto) 2.6 K/mm3 (1.2-5.4); Lymphocytes % (Auto) 28.2 % (13.4-35.0); Mean Corpuscular HGB Conc 32 % (32-34); Mean Corpuscular Volume 88 fl (84-94); Monocytes # (Auto) 0.6 K/mm3 (0.0-0.8); Monocytes % (Auto) 6.9 % (0.0-7.3); Platelet Count 175 K/mm3 (140-440); Red Blood Count 3.63 M/mm3 (3.65-5.03); Red Cell Distribution Width 14.5 % (13.2-15.2)
[2019-05-06 05:39] LABS: INR 0.91 (0.87-1.13)
[2019-05-06 05:40] LABS: Partial Thromboplastin Time 33.6 Sec. (24.2-36.6)
[2019-05-06 05:48] LABS: Calcium 8.5 mg/dL (8.4-10.2)
[2019-05-06] MEDS: HEPARIN 5,000 UNIT/1 ML VIAL SUB-Q SCH ×3 (06:54→22:20)
[2019-05-06] MEDS: INSULIN LISPRO 100 UNIT/ML SUB-Q SCH ×6 (07:48→22:13)
[2019-05-06] MEDS: CALCITRIOL 0.25 MCG CAP PO SCH (09:28)
[2019-05-06] MEDS: carvediloL 12.5 MG TAB PO SCH (09:28)
[2019-05-06] MEDS: NIFEdipine XL 90 MG TAB PO SCH (09:28)
[2019-05-06] MEDS: FERROUS SULFATE 325 MG TAB PO SCH (09:28)
[2019-05-06] MEDS: FAMOTIDINE 20 MG/2 ML INJ IV SCH (09:29)
[2019-05-06] MEDS ORDERED: INSULIN DETEMIR 28 UNIT SC SCH (10:00)
[2019-05-06] MEDS ORDERED: CALCITRIOL PO SCH (10:00)
[2019-05-06] MEDS ORDERED: IRON 325 MG PO SCH (10:00)
--- NOTE | 2019-05-06 10:32 | Consultation ---
History of Present Illness - Reason for Consult Consult date: 05/06/19 acute renal failure Requesting physician: TREVON DE SANTIAGO - History of Present Illness 43-year-old male with a history of diabetes mellitus, hypertension, chronic kidney disease stage IV/V who follows with instrument worker Dr. Ashley Thibodeaux at [facility]. Patient presents on account of 2-day history of abdominal pain, nausea, vomiting and watery diarrhea. Pain was sharp and excruciating asso ciated with diarrhea with several bowel movements a day. Patient also had chills but no fever. Was unable to tolerate these medications. On presentation blood pressure was high at 213/93 mmHg. BUN/creatinine elevated at 39/4.8 mg/dL. I am consulted to assist in managing this. Patient does not know his baseline creatinine or GFR only knowing that he is at stage IV) stage V. He has been told by his instrument worker that he needs to start dialysis in soon. He plans to do peritoneal dialysis. Past History Past Medical History: anemia, diabetes, hypertension, hyperlipidemia, renal failure (Chronic kidney disease stage IV/V), other (Secondary hyperparath yroidism of renal origin) Past Surgical History: appendectomy, Other (Right great toe amputation, laser photocoagulation in the right eye and intraocular injections to the left eye, right ankle surgery) Social history: Lives alone, smoking (Daily smoker). denies: alcohol abuse, prescription drug abuse, IV drug use Family history: no significant family history, diabetes, hypertension, other (Both parents have diabetes mellitus and hypertension. 1 sister has sarcoidosis and 2 sisters in good health) Medications and Allergies Allergies Allergy/AdvReac Type Severity Reaction Status Date / Time No Known Allergies Allergy Unverified 03/18/13 16:02 Home Medications Medication Instructions Recorded Confirmed Last Taken Type AtorvaSTATin [Lipitor] 40 mg PO QHS 05/05/19 05/05/19 Unknown History Benzocaine/Mentho [Cepacol X 1 each MM Q2HR PRN #1 packet 05/07/19 Unknown Rx Strength] Ferrous Sulfate [Feosol 325 MG tab] 325 mg PO QDAY #90 tablet 05/07/19 Unknown Rx NIFEdipine XL [Procardia Xl] 90 mg PO QDAY #90 tablet 05/07/19 Unknown Rx Phenol 1.4% [Chloraseptic] 1 spray MM PRN PRN #1 bottle 05/07/19 Unknown Rx calcitrioL [Rocaltrol] 0.25 mcg PO QDAY #90 capsule 05/07/19 Unknown Rx carvediloL [Coreg] 25 mg PO QHS #90 tablet 05/07/19 Unknown Rx carvediloL [Coreg] 37.5 mg PO QAM #90 tablet 05/07/19 Unknown Rx metFORMIN XR [Glucophage XR] 500 mg PO QDAY #90 tab 05/07/19 Unknown Rx Active Meds: Active Medications Atorvastatin Calcium (Lipitor) 40 mg PO QHS [facility] Last Admin: 05/05/19 21:42 Dose: 40 mg Documented by: Calcitriol (Rocaltrol) 0.25 mcg PO QDAY [facility] Last Admin: 05/06/19 09:28 Dose: 0.25 mcg Documented by: Carvedilol (Coreg) 37.5 mg PO QAM [facility] Last Admin: 05/06/19 09:28 Dose: 37.5 mg Documented by: Carvedilol (Coreg) 25 mg PO QHS [facility] Last Admin: 05/05/19 21:42 Dose: 25 mg Documented by: Famotidine (Pepcid) 20 mg IV QDAY [facility] Last Admin: 05/06/19 09:29 Dose: 20 mg Documented by: Ferrous Sulfate (Feosol) 325 mg PO QDAY [facility] Last Admin: 05/06/19 09:28 Dose: 325 mg Documented by: Heparin Sodium (Porcine) (Heparin) 5,000 unit SUB-Q Q8HR [facility] Last Admin: 05/06/19 06:54 Dose: 5,000 unit Documented by: Nicardipine HCl 50 mg/ Sodium (Chloride) 250 mls @ 25 mls/hr IV TITR [facility]; Protocol Last Titration: 05/06/19 03:21 Dose: 0 mg/hr, 0 mls/hr Documented by: Sodium Chloride (Nacl 0.9% 1000 Ml) 1,000 mls @ 125 mls/hr IV DIRECT [facility] Last Admin: 05/06/19 03:57 Dose: 125 mls/hr Documented by: Insulin Glargine (Lantus) 22 units SUB-Q QHS [facility] Insulin Human Lispro (Humalog) 0 unit SUB-Q ACHS [facility]; Protocol Last Admin: 05/06/19 07:48 Dose: Not Given Documented by: Insulin Human Lispro (Humalog) 6 unit SUB-Q AC [facility] Last Admin: 05/06/19 08:29 Dose: 6 unit Documented by: Magnesium Hydroxide (Milk Of Magnesia) 30 ml PO Q4H PRN PRN Reason: Constipation Morphine Sulfate (Morphine) 2 mg IV Q4H PRN PRN Reason: Pain, Moderate (4-6) Last Admin: 05/06/19 00:26 Dose: 2 mg Documented by: Nifedipine (Procardia Xl) 90 mg PO QDAY [facility] Last Admin: 05/06/19 09:28 Dose: 90 mg Documented by: Ondansetron HCl (Zofran) 4 mg IV Q4H PRN PRN Reason: Nausea And Vomiting Last Admin: 05/06/19 00:26 Dose: 4 mg Documented by: Sodium Chloride (Sodium Chloride Flush Syringe 10 Ml) 10 ml IV BID [facility] Last Admin: 05/06/19 09:28 Dose: 10 ml Documented by: Sodium Chloride (Sodium Chloride Flush Syringe 10 Ml) 10 ml IV PRN PRN PRN Reason: LINE FLUSH Review of Systems All systems: negative (Constitutional: no fever or chills. No anorexia or weight loss. HEENT: Admits to sore throat or sinus drainage no hearing or vision impairment . Cardiovascular: No chest pain, shortness of breath, admits to palpitations, no lower extremity swelling or dizziness. Respiratory: No cough, sputum, shortness of breath, hemoptysis or wheezing. Gastrointestinal: Stools were black but not bloody.. Genitourinary: No frequency urgency dysuria or hematuria. hematologic: No abnormal bleeding or bruising. Integumentary: Admits to itching but no rash. Neurological: Admits to intermittent headache no focal weakness or numbness, admits to dizziness but no syncope or seizures. Musculoskeletal: Admits to joint pains right ankle no stiffness. Psychiatry: no anxiety but admits to depression) Exam - Vital Signs Vital signs: Vital Signs Pulse Resp Pulse Ox 90 14 100 05/04/19 19:48 05/04/19 19:48 05/04/19 19:48 - Physical Exam Narrative exam: Middle-aged -I[place] male lying in bed in no acute distress HEENT: NCAT, pink oral mucous membrane Neck: Supple, no venous distention CVS: S1S2 RRR with no murmur, loud A2 rub or gallop Chest: Clear to auscultation Abdomen: Protuberant, soft, nontender, no organomegaly, bowel sounds are present Extremities: No edema, scar right ankle status post first toe amputation Neuro: Awake, alert no focal deficits Results - Lab Results 05/06/19 05:08 05/06/19 05:08 Most recent lab results Calcium 8.5 mg/dL (8.4-10.2) D 05/06/19 05:08 Assessment and Plan - Patient Problems (1) Chronic kidney disease, stage IV (severe) Current Visit: Yes Status: Acute Plan to address problem: Chronic kidney disease stage IV bordering on stage V presumed secondary to diabetic nephropathy/hypertensive nephrosclerosis. It is unclear if patient has any superimposed acute kidney injury prerenal azotemia secondary to volume depletion. Continue volume repletion. Follow-up electrolytes and renal function. Request records from [facility] specifically kidney function test. (2) Diarrhea Current Visit: Yes Status: Acute Plan to address problem: Probably acute gastroenteritis. Resolving (3) Anemia Current Visit: Yes Status: Acute Plan to address problem: Anemia probably of chronic kidney disease unclear any superimposed acute blood loss. Patient had episode of black stools but also take iron supplements. Foll ow-up hemoglobin (4) Intractable vomiting with nausea Current Visit: Yes Status: Acute Plan to address problem: Probably secondary to acute gastroenteritis. Continue antiemetic as needed. (5) Metabolic acidosis Current Visit: No Status: Acute Plan to address problem: Uremic acidosis with probably superimposed non-anion gap metabolic acidosis secondary to diarrhea. Give sodium bicarbonate and follow-up level (6) Hypertensive chronic kidney disease with stage 1 through stage 4 chronic kid vilma disease, or unspecified chronic kidney disease Current Visit: No Status: Chronic Plan to address problem: Follow-up blood pressure on current medications (7) Type 2 diabetes mellitus with diabetic chronic kidney disease Current Visit: No Status: Chronic Plan to address problem: Blood sugar management by primary attending
[2019-05-06] MEDS: BENZOCAINE/MENTHOL LOZENGE MM PRN ×3 (12:10→22:30)
--- NOTE | 2019-05-06 13:10 | Progress Note ---
Assessment and Plan Assessment and plan: 43-year-old man with history of hypertension diabetes chronic kidney disease stage IV presents to the hospital complaining of nausea vomiting and diarrhea x24 hours. Due to nausea vomiting he was not able to take his blood pressure medications. Hypertensive urgency Patient was on Cardene drip, weaned to oral medications. 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 Acute gastroenteritis Most likely viral in etiology, supportive care DVT prophylaxis with heparin. History Interval history: Review of systems Constitutional: No fevers, no malaise, no joint pains CVS: No chest pain, no orthopnea, no dyspnea on exertion, no pedal edema GI: No abdominal pain, no diarrhea, no vomiting, no constipation Respiratory: no wheezing, no coughing Hospitalist Physical - Physical exam Narrative exam: General.: Appears well, no distress, nontoxic HEENT: Moist mucous membranes, extraocular muscles intact, no lymphadenopathy Neck: supple Cardiac: S1-S2 heard Lungs: clear to auscultation bilaterally Abdomen: soft , nontender, nondistended, bowel sounds positive Extremities: no edema clubbing or cyanosis Skin: no rash or lesions Neurologic: no gross focal deficits Psych: calm, and cooperative - Constitutional Vitals: Temp Pulse Resp BP Pulse Ox 98.7 F 84 14 118/76 98 05/06/19 08:00 05/06/19 13:00 05/06/19 13:00 05/06/19 13:00 05/06/19 13:00 General appearance: Present: no acute distress, well-nourished Results - Labs CBC & Chem 7: 05/06/19 05:08 05/06/19 05:08 Labs: Laboratory Last Values WBC 9.1 K/mm3 (4.5-11.0) 05/06/19 05:08 RBC 3.63 M/mm3 (3.65-5.03) L 05/06/19 05:08 Hgb 10.3 gm/dl (11.8-15.2) L 05/06/19 05:08 Hct 31.9 % (35.5-45.6) L 05/06/19 05:08 MCV 88 fl (84-94) 05/06/19 05:08 MCH 28 pg (28-32) 05/06/19 05:08 MCHC 32 % (32-34) 05/06/19 05:08 RDW 14.5 % (13.2-15.2) 05/06/19 05:08 Plt Count 175 K/mm3 (140-440) 05/06/19 05:08 Lymph % (Auto) 28.2 % (13.4-35.0) 05/06/19 05:08 [place] % (Auto) 6.9 % (0.0-7.3) 05/06/19 05:08 Eos % (Auto) 0.7 % (0.0-4.3) 05/06/19 05:08 Baso % (Auto) 0.6 % (0.0-1.8) 05/06/19 05:08 Lymph # 2.6 K/mm3 (1.2-5.4) 05/06/19 05:08 [place] # 0.6 K/mm3 (0.0-0.8) 05/06/19 05:08 Eos # 0.1 K/mm3 (0.0-0.4) 05/06/19 05:08 Baso # 0.1 K/mm3 (0.0-0.1) 05/06/19 05:08 Add Manual Diff Complete 05/04/19 20:05 Total Counted 100 05/04/19 20:05 Seg Neutrophils % 63.6 % (40.0-70.0) 05/06/19 05:08 Seg Neuts % (Manual) 84.0 % (40.0-70.0) H 05/04/19 20:05 Band Neutrophils % 0 % 05/04/19 20:05 Lymphocytes % (Manual) 12.0 % (13.4-35.0) L 05/04/19 20:05 Reactive Lymphs % (Man) 0 % 05/04/19 20:05 Monocytes % (Manual) 3.0 % (0.0-7.3) 05/04/19 20:05 Eosinophils % (Manual) 0 % (0.0-4.3) 05/04/19 20:05 Basophils % (Manual) 1.0 % (0.0-1.8) 05/04/19 20:05 Metamyelocytes % 0 % 05/04/19 20:05 Myelocytes % 0 % 02/20/20 20:05 Promyelocytes % 0 % 05/04/19 20:05 Blast Cells % 0 % 05/04/19 20:05 Nucleated RBC % Not Reportable 05/04/19 20:05 Seg Neutrophils # 5.8 K/mm3 (1.8-7.7) 05/06/19 05:08 Seg Neutrophils # Man 12.0 K/mm3 (1.8-7.7) H 05/04/19 20:05 Band Neutrophils # 0.0 K/mm3 05/04/19 20:05 Lymphocytes # (Manual) 1.7 K/mm3 (1.2-5.4) 05/04/19 20:05 Abs React Lymphs (Man) 0.0 K/mm3 05/04/19 20:05 Monocytes # (Manual) 0.4 K/mm3 (0.0-0.8) 05/04/19 20:05 Eosinophils # (Manual) 0.0 K/mm3 (0.0-0.4) 05/04/19 20:05 Basophils # (Manual) 0.1 K/mm3 (0.0-0.1) 05/04/19 20:05 Metamyelocytes # 0.0 K/mm3 05/04/19 20:05 Myelocytes # 0.0 K/mm3 05/04/19 20:05 Promyelocytes # 0.0 K/mm3 05/04/19 20:05 Blast Cells # 0.0 K/mm3 05/04/19 20:05 WBC Morphology Not Reportable 05/04/19 20:05 Hypersegmented Neuts Not Reportable 05/04/19 20:05 Hyposegmented Neuts Not Reportable 05/04/19 20:05 Hypogranular Neuts Not Reportable 05/04/19 20:05 Smudge Cells Not Reportable 05/04/19 20:05 Toxic Granulation Not Reportable 05/04/19 20:05 Toxic Vacuolation Not Reportable 05/04/19 20:05 Dohle Bodies Not Reportable 05/04/19 20:05 Pelger-Huet Anomaly Not Reportable 05/04/19 20:05 Michelle Rods Not Reportable 05/04/19 20:05 Platelet Estimate Consistent w auto 05/04/19 20:05 Clumped Platelets Not Reportable 05/04/19 20:05 Plt Clumps, EDTA Not Reportable 05/04/19 20:05 Large Platelets Few 05/04/19 20:05 Giant Platelets Not Reportable 05/04/19 20:05 Platelet Satelliting Not Reportable 05/04/19 20:05 Plt Morphology Comment Not Reportable 05/04/19 20:05 RBC Morphology Not Reportable 05/04/19 20:05 Dimorphic RBCs Not Reportable 05/04/19 20:05 Polychromasia Not Reportable 05/04/19 20:05 Hypochromasia Not Reportable 05/04/19 20:05 Poikilocytosis Not Reportable 05/04/19 20:05 Anisocytosis Not Reportable 05/04/19 20:05 Microcytosis Few 05/04/19 20:05 Macrocytosis Few 05/04/19 20:05 Spherocytes Not Reportable 05/04/19 20:05 Pappenheimer Bodies Not Reportable 05/04/19 20:05 Sickle Cells Not Reportable 05/04/19 20:05 Target Cells Not Reportable 05/04/19 20:05 Tear Drop Cells Not Reportable 05/04/19 20:05 Ovalocytes Not Reportable 05/04/19 20:05 Stomatocytes Rare 05/04/19 20:05 Helmet Cells Not Reportable 05/04/19 20:05 [place] Bodies Not Reportable 05/04/19 20:05 [place] Rings Not Reportable 05/04/19 20:05 [place] Cells Not Reportable 05/04/19 20:05 Bite Cells Not Reportable 05/04/19 20:05 Crenated Cell Not Reportable 05/04/19 20:05 Elliptocytes Not Reportable 05/04/19 20:05 Acanthocytes (Spur) Not Reportable 05/04/19 20:05 Rouleaux Not Reportable 05/04/19 20:05 Hemoglobin C Crystals Not Reportable 05/04/19 20:05 Schistocytes Not Reportable 05/04/19 20:05 Malaria parasites Not Reportable 05/04/19 20:05 [place] Bodies Not Reportable 05/04/19 20:05 Hem Pathologist Commnt No 05/04/19 20:05 PT 12.3 Sec. (12.2-14.9) 05/06/19 05:08 INR 0.91 (0.87-1.13) 05/06/19 05:08 APTT 33.6 Sec. (24.2-36.6) 05/06/19 05:08 D-Dimer 223.00 ng/mlDDU (0-234) 05/05/19 13:06 Sodium 139 mmol/L (137-145) D 05/06/19 05:08 Potassium 3.9 mmol/L (3.6-5.0) 05/06/19 05:08 Chloride 103.5 mmol/L (98-107) 05/06/19 05:08 Carbon Dioxide 19 mmol/L (22-30) L 05/06/19 05:08 Anion Gap 20 mmol/L 05/06/19 05:08 BUN 39 mg/dL (9-20) H 05/06/19 05:08 Creatinine 4.8 mg/dL (0.8-1.5) H 05/06/19 05:08 Estimated GFR 16 ml/min 05/06/19 05:08 BUN/Creatinine Ratio 8 % 05/06/19 05:08 Glucose 124 mg/dL (75-100) H 05/06/19 05:08 POC Glucose 110 (70-105) H 05/06/19 13:02 Calcium 8.5 mg/dL (8.4-10.2) D 05/06/19 05:08 Total Bilirubin 0.40 mg/dL (0.1-1.2) 05/04/19 20:05 Direct Bilirubin < 0.2 mg/dL (0-0.2) 05/04/19 20:05 Indirect Bilirubin 0.2 mg/dL 05/04/19 20:05 AST 16 units/L (5-40) 05/04/19 20:05 ALT 32 units/L (7-56) 05/04/19 20:05 Alkaline Phosphatase 142 units/L (35-129) H 05/04/19 20:05 Total Protein 7.7 g/dL (6.3-8.2) 05/04/19 20:05 Albumin 4.2 g/dL (3.9-5) 05/04/19 20:05 Albumin/Globulin Ratio 1.2 % 05/04/19 20:05 Lipase 25 units/L (13-60) 05/04/19 20:05 Urine Color Straw (Yellow) 05/05/19 02:18 Urine Turbidity Clear (Clear) 05/05/19 02:18 Urine pH 8.0 (5.0-7.0) H 05/05/19 02:18 Ur Specific [place] 1.008 (1.003-1.030) 05/05/19 02:18 Urine Protein 100 mg/dl mg/dL (Negative) 05/05/19 02:18 Urine Glucose (UA) >=500 mg/dL (Negative) 05/05/19 02:18 Urine Ketones Neg mg/dL (Negative) 05/05/19 02:18 Urine Blood Neg (Negative) 05/05/19 02:18 Urine Nitrite Neg (Negative) 05/05/19 02:18 Urine Bilirubin Neg (Negative) 05/05/19 02:18 Urine Urobilinogen < 2.0 mg/dL (<2.0) 05/05/19 02:18 Ur Leukocyte Esterase Neg (Negative) 05/05/19 02:18 Urine WBC (Auto) < 1.0 /HPF (0.0-6.0) 05/05/19 02:18 Urine RBC (Auto) 1.0 /HPF (0.0-6.0) 05/05/19 02:18 Plasma/Serum Alcohol < 0.01 % (0-0.07) 05/04/19 20:05 Active Medications - Current Medications Current Medications: Generic Name Dose Route Start Last Admin Trade Name Freq PRN Reason Stop Dose Admin Atorvastatin Calcium 40 mg 05/05/19 22:00 05/05/19 21:42 Lipitor PO 40 mg QHS JUAN DANIEL Administration Benzocaine/Menthol 1 each 05/06/19 10:32 05/06/19 12:10 Cepacol X Strength MM 1 each Q2HR PRN Administration Sore Throat Calcitriol 0.25 mcg 05/06/19 10:00 05/06/19 09:28 Rocaltrol PO 0.25 mcg QDAY JUAN DANIEL Administration Carvedilol 37.5 mg 05/06/19 10:00 05/06/19 09:28 Coreg PO 37.5 mg QAM JUAN DANIEL Administration Carvedilol 25 mg 05/05/19 22:00 05/05/19 21:42 Coreg PO 25 mg QHS JUAN DANIEL Administration Famotidine 20 mg 05/05/19 11:00 05/06/19 09:29 Pepcid IV 20 mg QDAY JUAN DANIEL Administration Ferrous Sulfate 325 mg 05/06/19 10:00 05/06/19 09:28 Feosol PO 325 mg QDAY JUAN DANIEL Administration Heparin Sodium (Porcine) 5,000 unit 05/05/19 14:00 05/06/19 06:54 Heparin SUB-Q 5,000 unit Q8HR JUAN DANIEL Administration Nicardipine HCl 50 mg/ Sodium 250 mls @ 25 mls/hr 05/05/19 01:00 05/06/19 03:21 Chloride IV 0 mg/hr TITR JUAN DANIEL 0 mls/hr Titration Protocol 5 MG/HR Sodium Chloride 1,000 mls @ 125 mls/hr 05/05/19 02:15 05/06/19 03:57 Nacl 0.9% 1000 Ml IV 125 mls/hr DIRECT JUAN DANIEL Administration Insulin Glargine 22 units 05/06/19 22:00 Lantus SUB-Q QHS [facility] Insulin Human Lispro 0 unit 05/05/19 03:13 05/06/19 11:24 Humalog SUB-Q Not Given ACHS [facility] Protocol Insulin Human Lispro 6 unit 05/06/19 07:30 05/06/19 11:24 Humalog SUB-Q Not Given AC [facility] Magnesium Hydroxide 30 ml 05/05/19 02:01 Milk Of Magnesia PO Q4H PRN Constipation Morphine Sulfate 2 mg 05/05/19 02:01 05/06/19 00:26 Morphine IV 2 mg Q4H PRN Administration Pain, Moderate (4-6) Nifedipine 90 mg 05/05/19 15:00 05/06/19 09:28 Procardia Xl PO 90 mg QDAY JUAN DANIEL Administration Ondansetron HCl 4 mg 05/05/19 08:30 05/06/19 00:26 Zofran IV 4 mg Q4H PRN Administration Nausea And Vomiting Sodium Chloride 10 ml 05/05/19 10:00 05/06/19 09:28 Sodium Chloride Flush Syringe 10 Ml IV 10 ml BID JUAN DANIEL Administration Sodium Chloride 10 ml 05/05/19 02:01 Sodium Chloride Flush Syringe 10 Ml IV PRN PRN LINE FLUSH Nutrition/Malnutrition Assess - Dietary Evaluation Nutrition/Malnutrition Findings: Nutrition Notes Start: 05/05/19 10:56 Freq: Status: Active Protocol: Document 05/05/19 10:58 CT (Rec: 05/05/19 11:18 CT [email or web address]) Co-Sign 05/05/19 10:58 LP Nutrition Notes Need for Assessment generated from: MD Order,leadership program associate,Education Current Diagnosis CKD (stage V CKD),Diabetes, Hypertension Other Pertinent Diagnosis Nicotene dependence Current Diet Cardiac/Consistent CHO Labs/Tests Na 148 BUN 44 Cr 4.8 POC Glu 324 Pertinent Medications NS 125 ml/hr Humalog Height 6 ft Weight 77.11 kg Usual Body Weight 81.647 kg [place] Body Weight (kg) 80.90 BMI 23.0 Intake Prior to Admission Poor Weight change and time frame 5.5% wt loss in unknown time frame Weight Status Appropriate Subjective/Other Information MD consult for diet education, RN screen for hx of difficulty chewing, and skin risk. BINU=20. Pt stated he does not have issues chewing, but his throat has been hurting d/t multiple emesis episodes. Other than that, pt states he can swallow fine without choking. Pt stated his dry wt is 180 lbs. Pt has had 5.5% wt loss in an unknown time frame d/t pt being unsure of time frame. 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 Pt did not eat breakfast this am d/t not having an appetite. RD asked pt if he wanted to have Nepro shakes since he is not eating much of his meals, pt agreed. Pt stated he is planning on starting PD and has an appointment with the RD at the dialysis unit. Gave pt education on CKD tips and CHO counting. Burn Absent Trauma Absent GI Symptoms Nausea,Vomiting Current % PO Negligible Minimum of two criteria Yes Energy Intake (severe) < or equal to 50% Estimated Energy Requirement > or equal to 5 days Interpretation of Weight Loss (non- 5% in 1 month severe) #1 Nutrition Diagnosis Malnutrition Etiology CKD As Evidenced by Signs and Symptoms <50% EER >5 days, 5.5% wt loss in unknown time frame Is patient on ventilator? No Is Patient Ambulatory and/or Out of Bed Yes REE-([place]-St. Jeor-ambulatory/OOB) [ 5712.330 [id number]] Calculation Used for Recommendations [place]-St Jeor Additional Notes Protein needs: 92-116 g/day (1 .2-1.5 g/kg/day) Fluid needs: 1 ml/kcal/day or per MD Nutrition Intervention Change Diet Order: Change to Renal diet with consistent CHO Add Supplement/Snack (indicate name/kcal Add Nepro butterpecan and /protein ) vanilla BID Provides kCal: 850 Provides Protein (gm) 40 Teaching Recipient Patient,Family Learning Readiness Good Teaching Methods Discussion,Handout Response to Teaching Verbalize understanding Education Handouts Provided CKD tips Heart Healthy Consistent CHO Barriers to Learning No Barriers RD phone number provided Yes Patient aware of follow up options Yes Goal #1 Meet >75% of energy and protein needs Goal #2 wt maintenance Anticipated Discharge Needs: Renal with consistent CHO Follow-Up By: 05/09/19 Additional Comments Follow up for PO/ONS intakes
[2019-05-06] MEDS ORDERED: hydrALAZINE 20 MG/1 ML INJ IV PRN (13:11)
[2019-05-06] MEDS ORDERED: PHENOL 1.4% 177 ML BOTTLE MM PRN (14:32)
--- NOTE | 2019-05-06 16:49 | Progress Note ---
Assessment and Plan Hypertensive emergency Acute on chronic renal failure Intractable vomiting with nausea Diabetes mellitus HTN Tobacco Use Disorder - uptitrate oral antihypertensives to target BP - continue Coreg and optimize CMOP management per cardiology - Azotemia per nephrology (non-oliguric) - prn anti-emetics - aspiration precautions - avoid nephrotoxins, renally dose all medications - prn supplemental oxygen to keep O2 sats > 90% - prn bronchodilators per protocol - continue mobility protocols to prevent pressure ulcers - PT/OT as tolerated - continue accuchecks with glycemic control per SSI for target blood glucose < 180mg/dL - Smoking cessation counseling done at the bedside - prn analgesia per pain score - continue other care per attending / other consultants ... re-evaluate in am & prn Subjective Date of service: 05/06/19 Principal diagnosis: HTNsive emergency; RADHA on CKD; N&V; DM II ; HTN; Tobacco Use Disorder Interval history: Patient is seen today for: Hypertensive emergency; Acute on chronic renal failure; Intractable vomiting with nausea; Diabetes mellitus ; HTN; Tobacco Use Disorder Seen and examined at bedside; 24hour events reviewed; nursing and respiratory care staff consulted; no adverse overnight events reported to me; resting peacefully in bed; now off Cardene drip; denies acute chest pains or palpitations; No more N/V/F/C Objective Vital Signs - 12hr 05/06/19 05/06/19 05/06/19 05:00 05:15 05:30 Temperature Pulse Rate 75 90 84 Pulse Rate [ From Monitor] Respiratory 20 20 17 Rate Blood Pressure 115/68 146/121 128/74 O2 Sat by Pulse 84 100 100 Oximetry 05/06/19 05/06/19 05/06/19 05:45 06:00 06:15 Temperature Pulse Rate 81 79 79 Pulse Rate [ From Monitor] Respiratory 17 16 14 Rate Blood Pressure 121/72 108/69 118/71 O2 Sat by Pulse 100 100 100 Oximetry 05/06/19 05/06/19 05/06/19 06:30 06:45 07:01 Temperature Pulse Rate 83 78 94 H Pulse Rate [ From Monitor] Respiratory 16 15 16 Rate Blood Pressure 118/70 116/69 139/77 O2 Sat by Pulse 100 Oximetry 05/06/19 05/06/19 05/06/19 07:15 07:31 07:45 Temperature Pulse Rate 81 90 82 Pulse Rate [ From Monitor] Respiratory 18 11 L 19 Rate Blood Pressure 134/74 124/82 141/77 O2 Sat by Pulse 100 100 100 Oximetry 05/06/19 05/06/19 05/06/19 08:00 08:15 08:30 Temperature 98.7 F Pulse Rate 76 77 84 Pulse Rate [ 76 From Monitor] Respiratory 16 17 14 Rate Blood Pressure 141/77 117/70 124/72 O2 Sat by Pulse 99 99 100 Oximetry 05/06/19 05/06/19 05/06/19 08:45 09:00 09:15 Temperature Pulse Rate 87 90 91 H Pulse Rate [ From Monitor] Respiratory 14 17 16 Rate Blood Pressure 157/84 133/70 138/75 O2 Sat by Pulse 100 100 100 Oximetry 05/06/19 05/06/19 05/06/19 09:28 09:30 09:45 Temperature Pulse Rate 90 93 H 85 Pulse Rate [ From Monitor] Respiratory 16 20 Rate Blood Pressure 138/75 134/68 149/82 O2 Sat by Pulse 100 100 Oximetry 05/06/19 05/06/19 05/06/19 10:00 10:15 10:30 Temperature Pulse Rate 92 H 94 H 94 H Pulse Rate [ From Monitor] Respiratory 18 11 L 9 L Rate Blood Pressure 148/85 140/84 145/78 O2 Sat by Pulse 100 100 100 Oximetry 05/06/19 05/06/19 05/06/19 10:45 11:00 11:15 Temperature Pulse Rate 93 H 89 98 H Pulse Rate [ From Monitor] Respiratory 19 18 18 Rate Blood Pressure 139/70 129/69 135/72 O2 Sat by Pulse 100 100 100 Oximetry 05/06/19 05/06/19 05/06/19 11:30 11:45 12:00 Temperature Pulse Rate 86 77 77 Pulse Rate [ 77 From Monitor] Respiratory 13 14 15 Rate Blood Pressure 128/73 112/63 110/63 O2 Sat by Pulse 100 100 100 Oximetry 05/06/19 05/06/19 05/06/19 12:15 12:30 12:45 Temperature Pulse Rate 79 75 75 Pulse Rate [ From Monitor] Respiratory 14 14 15 Rate Blood Pressure 127/76 116/74 107/67 O2 Sat by Pulse 100 100 100 Oximetry 05/06/19 05/06/19 05/06/19 13:00 13:15 13:30 Temperature Pulse Rate 84 81 83 Pulse Rate [ From Monitor] Respiratory 14 15 8 L Rate Blood Pressure 118/76 115/67 127/76 O2 Sat by Pulse 98 100 99 Oximetry 05/06/19 05/06/19 05/06/19 13:45 14:00 14:15 Temperature Pulse Rate 76 80 85 Pulse Rate [ From Monitor] Respiratory 11 L 13 9 L Rate Blood Pressure 122/75 126/84 130/80 O2 Sat by Pulse 100 100 100 Oximetry 05/06/19 14:30 Temperature Pulse Rate 84 Pulse Rate [ From Monitor] Respiratory 11 L Rate Blood Pressure 140/77 O2 Sat by Pulse 100 Oximetry Constitutional: no acute distress, alert, other (middle aged thin AAM; normocephalic with normasl resp effort at rest) Eyes: non-icteric ENT: oropharynx moist Neck: supple, no lymphadenopathy, no JVD Effort: normal Ascultation: Bilateral: clear Percussion: Bilateral: not dull Cardiovascular: regular rate and rhythm Gastrointestinal: normoactive bowel sounds, soft, non-tender, non-distended Integumentary: normal Extremities: no cyanosis, no edema, pulses normal, no ischemia or petechiae Neurologic: normal mental status, non-focal exam, pupils equal and round, CN II- XII normal, motor strength normal and Psychiatric: mood appropriate, affect normal CBC and BMP: 05/06/19 05:08 05/06/19 05:08 ABG, PT/INR, D-dimer: PT/INR, D-dimer PT 12.3 Sec. (12.2-14.9) 05/06/19 05:08 INR 0.91 (0.87-1.13) 05/06/19 05:08 D-Dimer 223.00 ng/mlDDU (0-234) 05/05/19 13:06 Abnormal lab findings: Abnormal Labs 05/04/19 05/04/19 05/04/19 20:05 20:05 20:07 WBC 14.3 H RBC Hgb Hct Seg Neuts % (Manual) 84.0 H Lymphocytes % (Manual) 12.0 L Seg Neutrophils # Man 12.0 H Sodium 148 H Carbon Dioxide BUN 44 H Creatinine 4.8 H Glucose 235 H POC Glucose 208 H Alkaline Phosphatase 142 H Urine pH 05/05/19 05/05/19 05/05/19 01:49 02:18 03:14 WBC RBC Hgb Hct Seg Neuts % (Manual) Lymphocytes % (Manual) Seg Neutrophils # Man Sodium Carbon Dioxide BUN Creatinine Glucose POC Glucose 272 H 324 H Alkaline Phosphatase Urine pH 8.0 H 05/05/19 05/05/19 05/05/19 08:16 11:29 16:36 WBC RBC Hgb Hct Seg Neuts % (Manual) Lymphocytes % (Manual) Seg Neutrophils # Man Sodium Carbon Dioxide BUN Creatinine Glucose POC Glucose 267 H 343 H 228 H Alkaline Phosphatase Urine pH 05/05/19 05/06/19 05/06/19 21:44 04:26 05:08 WBC RBC 3.63 L Hgb 10.3 L Hct 31.9 L Seg Neuts % (Manual) Lymphocytes % (Manual) Seg Neutrophils # Man Sodium Carbon Dioxide BUN Creatinine Glucose POC Glucose 149 H < 40 L Alkaline Phosphatase Urine pH 05/06/19 05/06/19 05/06/19 05:08 07:30 11:29 WBC RBC Hgb Hct Seg Neuts % (Manual) Lymphocytes % (Manual) Seg Neutrophils # Man Sodium Carbon Dioxide 19 L BUN 39 H Creatinine 4.8 H Glucose 124 H POC Glucose 134 H < 40 L Alkaline Phosphatase Urine pH 05/06/19 05/06/19 12:14 13:02 WBC RBC Hgb Hct Seg Neuts % (Manual) Lymphocytes % (Manual) Seg Neutrophils # Man Sodium Carbon Dioxide BUN Creatinine Glucose POC Glucose 68 L 110 H Alkaline Phosphatase Urine pH Chest x-ray: image reviewed (No acute process) Allied health notes reviewed: nursing
[2019-05-06] MEDS ORDERED: INSULIN GLARGINE 100 UNITS/ML SUB-Q SCH ×2 (22:00)
[2019-05-06] MEDS: carvediloL 25 MG TAB PO SCH (22:15)
[2019-05-07] MEDS: HEPARIN 5,000 UNIT/1 ML VIAL SUB-Q SCH ×2 (06:04→14:00)
[2019-05-07] MEDS: INSULIN LISPRO 100 UNIT/ML SUB-Q SCH ×3 (08:22→17:01)
[2019-05-07] MEDS: SODIUM CHLORIDE 0.9% 1000 ML 1,000 ML IV SCH (08:27)
[2019-05-07] MEDS ORDERED: INSULIN GLARGINE 100 UNITS/ML SUB-Q SCH (08:50)
[2019-05-07] MEDS: carvediloL 12.5 MG TAB PO SCH (10:56)
[2019-05-07] MEDS: CALCITRIOL 0.25 MCG CAP PO SCH (10:56)
[2019-05-07] MEDS: FAMOTIDINE 20 MG/2 ML INJ IV SCH (10:56)
[2019-05-07] MEDS: FERROUS SULFATE 325 MG TAB PO SCH (10:56)
[2019-05-07] MEDS: NIFEdipine XL 90 MG TAB PO SCH (10:56)
--- NOTE | 2019-05-07 13:32 | Progress Note ---
Assessment and Plan Hypertensive emergency Acute on chronic renal failure Intractable vomiting with nausea Diabetes mellitus HTN Tobacco Use Disorder - uptitrate oral antihypertensives to target BP - continue Coreg and optimize CMOP management per cardiology - Azotemia per nephrology (non-oliguric) - prn anti-emetics - aspiration precautions - avoid nephrotoxins, renally dose all medications - prn supplemental oxygen to keep O2 sats > 90% - prn bronchodilators per protocol - continue mobility protocols to prevent pressure ulcers - PT/OT as tolerated - continue accuchecks with glycemic control per SSI for target blood glucose < 180mg/dL - Smoking cessation counseling done at the bedside - prn analgesia per pain score - continue other care per attending / other consultants ... re-evaluate in am & prn Subjective Date of service: 05/07/19 Principal diagnosis: HTNsive emergency; RADHA on CKD; N&V; DM II ; HTN; Tobacco Use Disorder Interval history: Patient is seen today for: Hypertensive emergency; Acute on chronic renal failure; Intractable vomiting with nausea; Diabetes mellitus ; HTN; Tobacco Use Disorder Seen and examined at bedside; 24hour events reviewed; nursing and respiratory care staff consulted; no adverse overnight events reported to me; resting peacefully in bed; Objective Vital Signs - 12hr 05/07/19 04:18 Temperature 98.8 F Pulse Rate 91 H Respiratory 18 Rate Blood Pressure 133/70 O2 Sat by Pulse 97 Oximetry Constitutional: no acute distress, alert, other (middle aged thin AAM; normocephalic with normasl resp effort at rest) Eyes: non-icteric ENT: oropharynx moist Neck: supple, no lymphadenopathy, no JVD Effort: normal Ascultation: Bilateral: clear Percussion: Bilateral: not dull Cardiovascular: regular rate and rhythm Gastrointestinal: normoactive bowel sounds, soft, non-tender, non-distended Integumentary: normal Extremities: no cyanosis, no edema, pulses normal, no ischemia or petechiae Neurologic: normal mental status, non-focal exam, pupils equal and round, CN II- XII normal, motor strength normal and Psychiatric: mood appropriate, affect normal CBC and BMP: 05/06/19 05:08 05/06/19 05:08 ABG, PT/INR, D-dimer: PT/INR, D-dimer PT 12.3 Sec. (12.2-14.9) 05/06/19 05:08 INR 0.91 (0.87-1.13) 05/06/19 05:08 D-Dimer 223.00 ng/mlDDU (0-234) 05/05/19 13:06 Abnormal lab findings: Abnormal Labs 05/04/19 05/04/19 05/04/19 20:05 20:05 20:07 WBC 14.3 H RBC Hgb Hct Seg Neuts % (Manual) 84.0 H Lymphocytes % (Manual) 12.0 L Seg Neutrophils # Man 12.0 H Sodium 148 H Carbon Dioxide BUN 44 H Creatinine 4.8 H Glucose 235 H POC Glucose 208 H Alkaline Phosphatase 142 H Urine pH 05/05/19 05/05/19 05/05/19 01:49 02:18 03:14 WBC RBC Hgb Hct Seg Neuts % (Manual) Lymphocytes % (Manual) Seg Neutrophils # Man Sodium Carbon Dioxide BUN Creatinine Glucose POC Glucose 272 H 324 H Alkaline Phosphatase Urine pH 8.0 H 05/05/19 05/05/19 05/05/19 08:16 11:29 16:36 WBC RBC Hgb Hct Seg Neuts % (Manual) Lymphocytes % (Manual) Seg Neutrophils # Man Sodium Carbon Dioxide BUN Creatinine Glucose POC Glucose 267 H 343 H 228 H Alkaline Phosphatase Urine pH 05/05/19 05/06/19 05/06/19 21:44 04:26 05:08 WBC RBC 3.63 L Hgb 10.3 L Hct 31.9 L Seg Neuts % (Manual) Lymphocytes % (Manual) Seg Neutrophils # Man Sodium Carbon Dioxide BUN Creatinine Glucose POC Glucose 149 H < 40 L Alkaline Phosphatase Urine pH 05/06/19 05/06/19 05/06/19 05:08 07:30 11:29 WBC RBC Hgb Hct Seg Neuts % (Manual) Lymphocytes % (Manual) Seg Neutrophils # Man Sodium Carbon Dioxide 19 L BUN 39 H Creatinine 4.8 H Glucose 124 H POC Glucose 134 H < 40 L Alkaline Phosphatase Urine pH 05/06/19 05/06/19 05/06/19 12:14 13:02 21:47 WBC RBC Hgb Hct Seg Neuts % (Manual) Lymphocytes % (Manual) Seg Neutrophils # Man Sodium Carbon Dioxide BUN Creatinine Glucose POC Glucose 68 L 110 H 211 H Alkaline Phosphatase Urine pH 05/07/19 05/07/19 08:23 12:07 WBC RBC Hgb Hct Seg Neuts % (Manual) Lymphocytes % (Manual) Seg Neutrophils # Man Sodium Carbon Dioxide BUN Creatinine Glucose POC Glucose 55 L 187 H Alkaline Phosphatase Urine pH Allied health notes reviewed: nursing
--- NOTE | 2019-05-07 13:44 | Discharge Summary ---
Providers - Providers Date of Admission: 05/05/19 00:43 Attending physician: JOSE CATHERINE MD 05/05/19 02:01 Consult to Dietitian/Nutrition [CONS] Routine Physician Instructions: Reason For Exam: Reason for Consult: Diet education Consult to Physician [CONS] Routine Comment: Consulting Provider: BRADY TIWARI Physician Instructions: Reason For Exam: hypertensive emergency 05/05/19 10:13 Consult to Physician [CONS] Routine Comment: Consulting Provider: JOVANI PAINTER Physician Instructions: Reason For Exam: Stage 4 CKD Primary care physician: AN/SYQ 13 NAV/C2 OPERATOR Hospitalization Condition: Stable Hospital course: 43-year-old man with history of hypertension diabetes chronic kidney disease stage IV presents to the hospital complaining of nausea vomiting and diarrhea x24 hours. Due to nausea vomiting he was not able to take his blood pressure medications. Hypertensive urgency Patient was on Cardene drip, weaned to oral medications. Type 2 diabetes with persistent hyperglycemia Optimized insulins Acute on chronic kidney disease, baseline CKD stage IV Case discussed with professor of history, patient was actually planned for outpatient peritoneal dialysis, avoid nephrotoxins. op fup Acute gastroenteritis Most likely viral in etiology, supportive care, resolved DVT prophylaxis with heparin. Preventative health counseling performed for 17 minutes Disposition: DC-01 TO HOME OR SELFCARE Time spent for discharge: 33 mins Core Measure Documentation - Palliative Care Palliative Care/ Comfort Measures: Not Applicable - Core Measures Any of the following diagnoses?: none Exam - Constitutional Vitals: Temp Pulse Resp BP Pulse Ox 98.8 F 91 H 18 133/70 97 05/07/19 04:18 05/07/19 04:18 05/07/19 04:18 05/07/19 04:18 05/07/19 04:18 General appearance: Present: no acute distress, well-nourished - EENT Eyes: Present: PERRL ENT: hearing intact, clear oral mucosa - Neck Neck: Present: supple, normal ROM - Respiratory Respiratory effort: normal Respiratory: bilateral: CTA - Cardiovascular Heart Sounds: Present: S1 & S2. Absent: rub, click - Extremities Extremities: pulses symmetrical, No edema Peripheral Pulses: within normal limits - Abdominal General gastrointestinal: Present: soft, non-tender, non-distended, normal bowel sounds Male genitourinary: Present: normal - Integumentary Integumentary: Present: clear, warm, dry - Musculoskeletal Musculoskeletal: gait normal, strength equal bilaterally - Psychiatric Psychiatric: appropriate mood/affect, intact judgment & insight - Neurologic Neurologic: CNII-XII intact, moves all extremities Plan Follow up with: PRIMARY CARE, [Primary Care Provider] - 3-5 Days Prescriptions: carvediloL [Coreg] 25 mg PO QHS #90 tablet Benzocaine/Mentho [Cepacol X Strength] 1 each MM Q2HR PRN #1 packet PRN Reason: Sore Throat Phenol 1.4% [Chloraseptic] 1 spray MM PRN PRN #1 bottle PRN Reason: Sore Throat carvediloL [Coreg] 37.5 mg PO QAM #90 tablet Ferrous Sulfate [Feosol 325 MG tab] 325 mg PO QDAY #90 tablet metFORMIN XR [Glucophage XR] 500 mg PO QDAY #90 tab NIFEdipine XL [Procardia Xl] 90 mg PO QDAY #90 tablet calcitrioL [Rocaltrol] 0.25 mcg PO QDAY #90 capsule
--- NOTE | 2019-05-07 15:03 | Progress Note ---
Assessment and Plan - Patient Problems (1) Chronic kidney disease, stage IV (severe) Current Visit: Yes Status: Acute Plan to address problem: Chronic kidney disease stage IV bordering on stage V presumed secondary to diabetic nephropathy/hypertensive nephrosclerosis. It is unclear if patient has any superimposed acute kidney injury prerenal azotemia secondary to volume depletion. Kidney function is unchanged. I am beginning to doubt any superim posed acute kidney injury. Patient tolerating orally and so we can continue volume patient by mouth. Continue volume repletion. Follow-up electrolytes and renal function as an outpatient. Patient encouraged to see primary molding machine operator helper as an outpatient within the next couple of weeks. (2) Diarrhea Current Visit: Yes Status: Acute Plan to address problem: Probably acute gastroenteritis. Resolved (3) Anemia Current Visit: Yes Status: Acute Plan to address problem: Anemia probably of chronic kidney disease unclear any superimposed acute blood loss. Patient had episode of black stools but also take iron supplements. Hemoglobin stable. Follow-up hemoglobin as an outpatient (4) Intractable vomiting with nausea Current Visit: Yes Status: Acute Plan to address problem: Probably secondary to acute gastroenteritis. Continue antiemetic as needed. (5) Metabolic acidosis Current Visit: No Status: Acute Plan to address problem: Uremic acidosis with probably superimposed non-anion gap metabolic acidosis seco ndary to diarrhea. Continue p.o. sodium bicarbonate and follow-up level as an outpatient (6) Hypertensive chronic kidney disease with stage 1 through stage 4 chronic kidney disease, or unspecified chronic kidney disease Current Visit: No Status: Chronic Plan to address problem: Follow-up blood pressure on current medications (7) Type 2 diabetes mellitus with diabetic chronic kidney disease Current Visit: No Status: Chronic Plan to address problem: Blood sugar management by primary attending Subjective Date of service: 05/07/19 Principal diagnosis: HTNsive emergency; RADHA on CKD; N&V; DM II ; HTN; Tobacco Use Disorder Interval history: Patient seen lying in bed. He has no complaints. He feels better today. Tolerating p.o. Objective - Exam Narrative Exam: Middle-aged -[place] male lying in bed in no acute distress HEENT: NCAT, pink oral mucous membrane Neck: Supple, no venous distention CVS: S1S2 RRR with no murmur, loud A2 rub or gallop Chest: Clear to auscultation Abdomen: Protuberant, soft, nontender, no organomegaly, bowel sounds are present Extremities: No edema, scar right ankle status post first toe amputation Neuro: Awake, alert no focal deficits - Vital Signs Vital signs: Vital Signs - 12hr 05/07/19 05/07/19 04:18 09:00 Temperature 98.8 F Pulse Rate 91 H Pulse Rate [ 87 From Monitor] Respiratory 18 18 Rate Blood Pressure 133/70 O2 Sat by Pulse 97 Oximetry - Lab 05/06/19 05:08 05/06/19 05:08 Most recent lab results Calcium 8.5 mg/dL (8.4-10.2) D 05/06/19 05:08 Medications & Allergies - Medications Allergies/Adverse Reactions: Allergies No Known Allergies Allergy (Unverified 03/18/13 16:02) Home Medications: Home Medications Medication Instructions Recorded Confirmed Last Taken Type AtorvaSTATin [Lipitor] 40 mg PO QHS 05/05/19 05/05/19 Unknown History Benzocaine/Mentho [Cepacol X 1 each MM Q2HR PRN #1 packet 05/07/19 Unknown Rx Strength] Ferrous Sulfate [Feosol 325 MG tab] 325 mg PO QDAY #90 tablet 05/07/19 Unknown Rx NIFEdipine XL [Procardia Xl] 90 mg PO QDAY #90 tablet 05/07/19 Unknown Rx Phenol 1.4% [Chloraseptic] 1 spray MM PRN PRN #1 bottle 05/07/19 Unknown Rx calcitrioL [Rocaltrol] 0.25 mcg PO QDAY #90 capsule 05/07/19 Unknown Rx carvediloL [Coreg] 25 mg PO QHS #90 tablet 05/07/19 Unknown Rx carvediloL [Coreg] 37.5 mg PO QAM #90 tablet 05/07/19 Unknown Rx metFORMIN XR [Glucophage XR] 500 mg PO QDAY #90 tab 05/07/19 Unknown Rx Active Medications: Generic Name Dose Route Start Last Admin Trade Name Freq PRN Reason Stop Dose Admin Atorvastatin Calcium 40 mg 05/05/19 22:00 05/06/19 22:15 Lipitor PO 40 mg QHS JUAN DANIEL Administration Benzocaine/Menthol 1 each 05/06/19 10:32 05/06/19 22:30 Cepacol X Strength MM 1 each Q2HR PRN Administration Sore Throat Calcitriol 0.25 mcg 05/06/19 10:00 05/07/19 10:56 Rocaltrol PO 0.25 mcg QDAY JUAN DANIEL Administration Carvedilol 37.5 mg 05/06/19 10:00 05/07/19 10:56 Coreg PO 37.5 mg QAM JUAN DANIEL Administration Carvedilol 25 mg 05/05/19 22:00 05/06/19 22:15 Coreg PO 25 mg QHS JUAN DANIEL Administration Famotidine 20 mg 05/05/19 11:00 05/07/19 10:56 Pepcid IV 20 mg QDAY JUAN DANIEL Administration Ferrous Sulfate 325 mg 05/06/19 10:00 05/07/19 10:56 Feosol PO 325 mg QDAY JUAN DANIEL Administration Heparin Sodium (Porcine) 5,000 unit 05/05/19 14:00 05/07/19 06:04 Heparin SUB-Q 5,000 unit Q8HR JUAN DANIEL Administration Hydralazine HCl 10 mg 05/06/19 13:11 Apresoline IV Q4HR PRN BP >160/100 Sodium Chloride 1,000 mls @ 125 mls/hr 05/05/19 02:15 05/07/19 08:27 Nacl 0.9% 1000 Ml IV 125 mls/hr DIRECT JUAN DANIEL Administration Insulin Glargine 9 units 05/07/19 08:50 Lantus SUB-Q QHS [facility] Insulin Human Lispro 0 unit 05/06/19 16:30 05/07/19 12:19 Humalog SUB-Q 1 unit ACHS JUAN DANIEL Administration Protocol Magnesium Hydroxide 30 ml 05/05/19 02:01 Milk Of Magnesia PO Q4H PRN Constipation Morphine Sulfate 2 mg 05/05/19 02:01 05/06/19 00:26 Morphine IV 2 mg Q4H PRN Administration Pain, Moderate (4-6) Nifedipine 90 mg 05/05/19 15:00 05/07/19 10:56 Procardia Xl PO 90 mg QDAY JUAN DANIEL Administration Ondansetron HCl 4 mg 05/05/19 08:30 05/06/19 00:26 Zofran IV 4 mg Q4H PRN Administration Nausea And Vomiting Phenol 1 spray 05/06/19 14:32 Chloraseptic MM PRN PRN Sore Throat Sodium Chloride 10 ml 05/05/19 10:00 05/07/19 10:57 Sodium Chloride Flush Syringe 10 Ml IV 10 ml BID JUAN DANIEL Administration Sodium Chloride 10 ml 05/05/19 02:01 Sodium Chloride Flush Syringe 10 Ml IV PRN PRN LINE FLUSH
[2019-05-07 15:17] VITALS: BP 119/60
== END 2019-05-07 16:30 | disposition home or self-care (01) | DRG 683 ==
LOC: ED 19:21 → CC1 05-05 00:43 → 3A 05-06 16:17
PROVIDERS: ADMIT Internal Medicine Geriatric Medicine; ATTEND Internal Medicine
DX: N17.9 Acute kidney failure, unspecified (principal); A08.39 Other viral enteritis; I16.1 Hypertensive emergency; I12.0 Hypertensive chronic kidney disease with stage 5 chronic kidney disease or end stage renal disease; Z60.2 Problems related to living alone; E11.65 Type 2 diabetes mellitus with hyperglycemia; I16.0 Hypertensive urgency; N18.5 Chronic kidney disease, stage 5; E11.22 Type 2 diabetes mellitus with diabetic chronic kidney disease; Z90.49 Acquired absence of other specified parts of digestive tract; Z89.411 Acquired absence of right great toe; Z79.4 Long term (current) use of insulin
CPT/HCPCS: 36415; 71045; 74176; 78582; 80048; 80076; 80320; 81001; 82962; 83690; 85007; 85025; 85379; 85610; 85730; 87116; 87430; 93005; 93010; 96374; G0378; A9270-GY; A9540; A9558; G0480; J0360; J0500; J1644; J1815; J2270; J2405; J2765; J7030; J7050

== ENCOUNTER 2019-07-01 05:25 | Emergency (ER) | payer SELFPAY ==
[2019-07-01] MEDS ORDERED: HYDROmorphone 1 MG/1 ML INJ ONE (05:49)
[2019-07-01] MEDS ORDERED: ONDANSETRON 4 MG/2 ML INJ ONE (05:49)
[2019-07-01] MEDS ORDERED: HYDROmorphone 1 MG/1 ML INJ IV ONE (05:51)
[2019-07-01] MEDS ORDERED: ONDANSETRON 4 MG/2 ML INJ IV ONE (05:51)
[2019-07-01 06:20] LABS: Basophils % (Auto) 0.4 % (0.0-1.8); Eosinophils % (Auto) 0.1 % (0.0-4.3); Hematocrit 39.6 % (35.5-45.6); Hemoglobin 12.5 gm/dl (11.8-15.2); Lymphocytes # (Auto) 1.4 K/mm3 (1.2-5.4); Lymphocytes % (Auto) 11.8 % (13.4-35.0); Mean Corpuscular HGB Conc 32 % (32-34); Mean Corpuscular Volume 87 fl (84-94); Monocytes # (Auto) 0.6 K/mm3 (0.0-0.8); Monocytes % (Auto) 5.4 % (0.0-7.3); Platelet Count 253 K/mm3 (140-440); Red Blood Count 4.55 M/mm3 (3.65-5.03); Red Cell Distribution Width 15.2 % (13.2-15.2)
[2019-07-01] MEDS ORDERED: SODIUM CHLORIDE 0.9% 1000 ML 1,000 ML IV ONE ×2 (06:32→09:19)
--- NOTE | 2019-07-01 06:39 | Emergency Department Report ---
HPI - General Chief Complaint: Abdominal Pain Time Seen by Provider: 07/01/19 06:25 - HPI HPI: Room 4 The patient is a 43-year-old male present with a chief complaint of abdominal pain nausea vomiting diarrhea. The patient states 2 days ago while cleaning chicken wings he believes he accidentally touched the faucet with a raw chicken. The patient states he then filled a cup with water from the sink faucet and drink it. The patient states for the past 2 days he has had nausea vomiting and diarrhea. Patient denies fever shortness of breath or cough. Patient denies sick contacts. ED Past Medical Hx - Past Medical History Previous Medical History?: Yes Hx Hypertension: Yes Hx Diabetes: Yes Hx Renal Disease: Yes (ESRD) - Surgical History Past Surgical History?: Yes Hx Appendectomy: Yes Additional Surgical History: right great toe amputated. Right foot surgery - Family History Family history: no significant - Social History Smoking Status: Current Some Day Smoker Substance Use Type: None (Denies illicit drug use), Alcohol (Occasional) - Medications Home Medications: Home Medications Medication Instructions Recorded Confirmed Last Taken Type AtorvaSTATin [Lipitor] 40 mg PO QHS 05/05/19 05/05/19 Unknown History Benzocaine/Mentho [Cepacol X 1 each MM Q2HR PRN #1 packet 05/07/19 Unknown Rx Strength] Ferrous Sulfate [Feosol 325 MG tab] 325 mg PO QDAY #90 tablet 05/07/19 Unknown Rx NIFEdipine XL [Procardia Xl] 90 mg PO QDAY #90 tablet 05/07/19 Unknown Rx Phenol 1.4% [Chloraseptic] 1 spray MM PRN PRN #1 bottle 05/07/19 Unknown Rx calcitrioL [Rocaltrol] 0.25 mcg PO QDAY #90 capsule 05/07/19 Unknown Rx carvediloL [Coreg] 25 mg PO QHS #90 tablet 05/07/19 Unknown Rx carvediloL [Coreg] 37.5 mg PO QAM #90 tablet 05/07/19 Unknown Rx metFORMIN XR [Glucophage XR] 500 mg PO QDAY #90 tab 05/07/19 Unknown Rx Ciprofloxacin HCl [Ciprofloxacin 500 mg PO Q12HR #10 tab 07/01/19 Unknown Rx TAB] HYDROcodone/APAP 5-325 [[place] 1 - 2 each PO Q6HR PRN #10 tablet 07/01/19 Unknown Rx 5/325] Promethazine [Phenergan] 25 mg PO Q6HR PRN #20 tab 07/01/19 Unknown Rx Promethazine [Phenergan] 25 mg [place] Q6HR PRN #5 supp.rect 07/01/19 Unknown Rx ED Review of Systems ROS: Stated complaint: EMESIS/ABD PAIN Other details as noted in HPI Constitutional: denies: fever Eyes: denies: eye pain ENT: denies: throat pain Respiratory: no symptoms reported. denies: cough Cardiovascular: denies: chest pain Endocrine: no symptoms reported Gastrointestinal: abdominal pain, nausea, vomiting, diarrhea Genitourinary: denies: dysuria Musculoskeletal: denies: back pain Neurological: denies: headache Physical Exam - Physical Exam Vital Signs: Vital Signs 07/01/19 07/01/19 05:40 05:52 Temperature 98.2 F Pulse Rate 110 H Respiratory 28 H 16 Rate Blood Pressure 223/109 [Left] O2 Sat by Pulse 100 Oximetry Physical Exam: GENERAL: The patient is well-developed well-nourished male lying on stretcher not appearing to be in acute distress. [] HEENT: Normocephalic. Atraumatic. Extraocular motions are intact. Patient has moist mucous membranes. NECK: Supple. Trachea midline CHEST/LUNGS: Clear to auscultation. There is no respiratory distress noted. HEART/CARDIOVASCULAR: Regular. There is no tachycardia. There is no gallop rub or murmur. ABDOMEN: Abdomen is soft, with mild discomfort to palpation in the right lower quadrant and left lower quadrant. There is no rebound or guarding. Patient has normal bowel sounds. There is no abdominal distention. SKIN: There is no rash. There is no edema. There is no diaphoresis. NEURO: The patient is awake, alert, and oriented. The patient is cooperative. The patient has normal speech MUSCULOSKELETAL: There is no evidence of acute injury. ED Course Vital Signs 07/01/19 07/01/19 05:40 05:52 Temperature 98.2 F Pulse Rate 110 H Respiratory 28 H 16 Rate Blood Pressure 223/109 [Left] O2 Sat by Pulse 100 Oximetry - Reevaluation(s) Reevaluation #1: 07/01/19 09:49 Patient tolerating po - Consultations Consultation #1: 07/01/19 09:33 GI paged 07/01/19 10:[address] Coyle- recommends ciprofloxacin 500 mg twice daily x5 days and Flagyl 500 mg twice daily x5 days. ED Medical Decision Making - Lab Data Result diagrams: 07/01/19 05:58 07/01/19 05:58 - Radiology Data Radiology results: report reviewed (CT abdomen pelvis), image reviewed (CT abdomen pelvis) Findings [facility] [address] [place] [address] Cat Scan Report Signed Patient: MOHAN POPE MR#: [id number] : 1975 Acct:[id number] Age/Sex: 43 / M ADM Date: 07/01/19 Loc: ED Attending Dr: Ordering Physician: ERLINDA SANTACRUZ MD Date of Service: 07/01/19 Procedure(s): CT abdomen pelvis wo con Accession Number(s): [id number] cc: ERLINDA SANTACRUZ MD CT abdomen pelvis wo con INDICATION / CLINICAL INFORMATION: Lower abdominal pain, intractable nausea vomiting. TECHNIQUE: Axial CT imaging of abdomen and pelvis was obtained without contrast. Coronal and sagittal reformatted imaging obtained and reviewed. All CT scans at this location are performed using CT dose reduction for ALARA by means of automated exposure control. COMPARISON: Prior CT, 05/04/2019 FINDINGS: CT abdomen without contrast demonstrates normal appearance of the liver, spleen, pancreas, and gallbladder. Both adrenal glands are moderately thickened without discrete mass. Both kidneys contain calcifications which may be vascular in etiology rather than urinary calculi. No hydronephrosis or renal mass identified. CT pelvis without contrast demonstrates prominent distention of the urinary bladder. No pelvic mass or free fluid noted. There is mild diffuse colonic wall thickening. The appearance is most suggestive of mild colitis. The remainder of the GI tract is unremarkable. Visualized lung bases continue to demonstrate some patchy groundglass opacities. These findings are unchanged compared with prior CT of 05/04/2019 and therefore are not acute. No pleural effusion or areas of consolidation identified. . Review of osseous structures is unremarkable. IMPRESSION: 1. Diffuse colonic wall thickening most consistent with pancolitis. Whether this is infectious or inflammatory is unknown. Signer Name: Cora Fuchs MD Signed: 07/01/2019 7:10 AM Workstation Name: [id number] Transcribed By: Dictated By: Cora Fuchs MD Electronically Authenticated By: Cora Fuchs MD Signed Date/Time: 07/01/19709 DD/ 2 TD/TT: - Differential Diagnosis Gastroenteritis, Salmonella, partial small bowel obstruction Critical care attestation.: If time is entered above; I have spent that time in minutes in the direct care of this critically ill patient, excluding procedure time. ED Disposition Clinical Impression: Acute abdominal pain, Pancolitis, Nausea vomiting and diarrhea Disposition: TO HOME OR SELFCARE Is pt being admited?: No Does the pt Need Aspirin: No Condition: Stable Additional Instructions: Return to the emergency department should you develop worsening symptoms, inabi lity to tolerate food or liquids, high fever or any other concerns Prescriptions: Ciprofloxacin HCl [Ciprofloxacin TAB] 500 mg PO Q12HR #10 tab HYDROcodone/APAP 5-325 [[place] 5/325] 1 - 2 each PO Q6HR PRN #10 tablet PRN Reason: Pain Promethazine [Phenergan] 25 mg PO Q6HR PRN #20 tab PRN Reason: Nausea Promethazine [Phenergan] 25 mg [place] Q6HR PRN #5 supp.rect PRN Reason: Vomiting Referrals: HUGO NAVAS MD [Staff Physician] - 3-5 Days (Dr. Navas is a primary physician. Please follow-up with him to be established as a patient) MATA COYLE MD [Staff Physician] - 3-5 Days (Dr. Coyle is a oncology nurse. Please follow-up with him for further evaluation) Time of Disposition: 10:12
[2019-07-01 06:40] LABS: Albumin 4.3 g/dL (3.9-5); Calcium 9.5 mg/dL (8.4-10.2)
--- NOTE | 2019-07-01 07:14 | Cat Scan Report ---
CT abdomen pelvis wo con INDICATION / CLINICAL INFORMATION: Lower abdominal pain, intractable nausea vomiting. TECHNIQUE: Axial CT imaging of abdomen and pelvis was obtained without contrast. Coronal and sagittal reformatte d imaging obtained and reviewed. All CT scans at this location are performed using CT dose reduction for ALARA by means of automated exposure control. COMPARISON: Prior CT, 05/04/2019 FINDINGS: CT abdomen without contrast demonstrates normal appearance of the liver, spleen, pancreas, and gallbl adder. Both adrenal glands are moderately thickened without discrete mass. Both kidneys contain calci fications which may be vascular in etiology rather than urinary calculi. No hydronephrosis or renal m ass identified. CT pelvis without contrast demonstrates prominent distention of the urinary bladder. No pelvic mass o r free fluid noted. There is mild diffuse colonic wall thickening. The appearance is most suggestive of mild colitis. The remainder of the GI tract is unremarkable. Visualized lung bases continue to demonstrate some patchy groundglass opacities. These findings are u nchanged compared with prior CT of 05/04/2019 and therefore are not acute. No pleural effusion or area s of consolidation identified. . Review of osseous structures is unremarkable. IMPRESSION: 1. Diffuse colonic wall thickening most consistent with pancolitis. Whether this is infectious or inf lammatory is unknown. Signer Name: Cora Fuchs MD Signed: 07/01/2019 7:10 AM Workstation Name: [id number]
[2019-07-01] MEDS ORDERED: cloNIDine 0.2 MG TAB PO ONE (07:39)
[2019-07-01] MEDS ORDERED: fentaNYL 100 MCG/2 ML INJ IV ONE (07:42)
[2019-07-01] MEDS ORDERED: METOCLOPRAMIDE 10 MG/2 ML INJ IV ONE (07:50)
[2019-07-01] MEDS ORDERED: INSULIN REGULAR, HUMAN 100 UNITS/1 ML IV ONE ×3 (09:18→10:53)
[2019-07-01 09:50] LABS: Bilirubin,Urine NEG (Negative); Blood,Urine MOD (Negative); Color,Urine Straw (Yellow); Mucus,Urine FEW /HPF; Urobilinogen,Urine < 2.0 mg/dL (<2.0)
[2019-07-01 09:53] LABS: Protein,Urine >500 mg/dL (Negative)
[2019-07-01 11:35] VITALS: BP 134/84
== END 2019-07-01 11:36 | disposition home or self-care (01) ==
LOC: ED 05:25
DX: K51.00 Ulcerative (chronic) pancolitis without complications (principal); R10.9 Unspecified abdominal pain; R19.7 Diarrhea, unspecified; R11.2 Nausea with vomiting, unspecified; I12.0 Hypertensive chronic kidney disease with stage 5 chronic kidney disease or end stage renal disease; E11.22 Type 2 diabetes mellitus with diabetic chronic kidney disease; N18.6 End stage renal disease; F17.200 Nicotine dependence, unspecified, uncomplicated; Z98.890 Other specified postprocedural states; Z79.899 Other long term (current) drug therapy
CPT/HCPCS: 36415; 74176; 80053; 81001; 82805; 82962; 83690; 85025; 96361; 96374; 96375; 96376; 99285; J1170; J2405; J2765; J3010; J7030; J1815

== ENCOUNTER 2019-12-20 18:57 | Emergency (ER) | payer SELFPAY ==
--- NOTE | 2019-12-20 19:48 | Emergency Department Report ---
Blank Doc - Documentation Documentation: 44-year-old male that presents with abdominal pain with n/v. This initial assessment/diagnostic orders/clinical plan/treatment(s) is/are subject to change based on patient's health status, clinical progression and re- assessment by fellow clinical providers in the ED. Further treatment and workup at subsequent clinical providers discretion. Patient/guardians urged not to elope from the ED as their condition may be serious if not clinically assessed and managed. Initial orders include: 1- Patient sent to [facility] for further evaluation and treatment 2- labs 3- UA
[2019-12-20 20:22] LABS: Basophils % (Auto) 0.3 % (0.0-1.8); Hematocrit 37.3 % (35.5-45.6); Hemoglobin 11.7 gm/dl (11.8-15.2); Lymphocytes # (Auto) 0.8 K/mm3 (1.2-5.4); Lymphocytes % (Auto) 6.4 % (13.4-35.0); Mean Corpuscular HGB Conc 31 % (32-34); Mean Corpuscular Volume 88 fl (84-94); Monocytes # (Auto) 0.5 K/mm3 (0.0-0.8); Monocytes % (Auto) 4.6 % (0.0-7.3); Platelet Count 243 K/mm3 (140-440); Red Blood Count 4.23 M/mm3 (3.65-5.03); Red Cell Distribution Width 14.7 % (13.2-15.2)
[2019-12-20 20:57] LABS: Albumin 5.5 g/dL (3.9-5); Calcium 10.3 mg/dL (8.4-10.2)
[2019-12-20 21:08] LABS: Bilirubin,Urine NEG (Negative); Blood,Urine SM (Negative); Color,Urine Colorless (Yellow); Mucus,Urine FEW /HPF; Urobilinogen,Urine < 2.0 mg/dL (<2.0); WBC,Urine < 1.0 /HPF (0.0-6.0)
[2019-12-21] MEDS ORDERED: HALOPERIDOL LACTATE 5 MG/1 ML INJ IM ONE (06:24)
[2019-12-21] MEDS ORDERED: SODIUM CHLORIDE 0.9% 250ML 250 ML IV ONE (06:24)
--- NOTE | 2019-12-21 06:25 | Emergency Department Report ---
ED General Adult HPI - General Chief complaint: Abdominal Pain Stated complaint: VOMIT/DEHYDRATED/HBS OVER 600 PUI?: No Time Seen by Provider: 12/20/19 19:47 Source: patient, RN notes reviewed Mode of arrival: Wheelchair Limitations: No Limitations - History of Present Illness Initial comments: The patient was evaluated in the emergency department for symptoms described in the history of present illness. He/she was evaluated in the context of the global COVID-19 pandemic, which necessitated consideration that the patient mi ght be at risk for infection with the virus that causes COVID-19. Institutional protocols and algorithms that pertain to the evaluation of patients at risk for COVID-19 are in a state of rapid change based on information released by regulatory bodies including the CDC and federal and state organizations. These policies and algorithms were followed during the patient's care in the emergency department. Please note that these policies, procedures and recommendations changed on a rapid basis. The patient is a 44-year-old gentleman. He typically follows at the [facility]. His past medical history include renal insufficiency, gastroenteritis, type 2 diabetes, most recent hemoglobin A1c is 11.6. He reports that he takes insulin and "pills" for his diabetes. He presents to the ER with a complaint of 2 days of nausea, vomiting, cramping, malaise and fatigue. Denies headache, neck pain, chest pain urinary symptoms, fever, loss of taste, loss of smell. He reports multiple episodes of nonbloody, nonbilious emesis, and he reports some watery loose episodes of diarrhea. No recent travel, sick contacts, or antibiotic use. Symptoms present for the past 2 days intermittent, do not radiate anywhere, and worsens when he attempts to eat and/or drink. He also describes diffuse body cramps and myalgias., -: Gradual, days(s) Location: abdomen, left, right, upper extremity, lower extremity Quality: aching Consistency: intermittent Improves with: rest Worsens with: eating - Related Data Home Medications Medication Instructions Recorded Confirmed Last Taken AtorvaSTATin [Lipitor] 40 mg PO QHS 05/05/19 05/05/19 Unknown Previous Rx's Medication Instructions Recorded Last Taken Type Benzocaine/Mentho [Cepacol X 1 each MM Q2HR PRN #1 packet 05/07/19 Unknown Rx Strength] Ferrous Sulfate [Feosol 325 MG tab] 325 mg PO QDAY #90 tablet 05/07/19 Unknown Rx NIFEdipine XL [Procardia Xl] 90 mg PO QDAY #90 tablet 05/07/19 Unknown Rx Phenol 1.4% [Chloraseptic] 1 spray MM PRN PRN #1 bottle 05/07/19 Unknown Rx calcitrioL [Rocaltrol] 0.25 mcg PO QDAY #90 capsule 05/07/19 Unknown Rx carvediloL [Coreg] 25 mg PO QHS #90 tablet 05/07/19 Unknown Rx carvediloL [Coreg] 37.5 mg PO QAM #90 tablet 05/07/19 Unknown Rx metFORMIN XR [Glucophage XR] 500 mg PO QDAY #90 tab 05/07/19 Unknown Rx Ciprofloxacin HCl [Ciprofloxacin 500 mg PO Q12HR #10 tab 07/01/19 Unknown Rx TAB] Promethazine [Phenergan] 25 mg PO Q6HR PRN #20 tab 07/01/19 Unknown Rx Promethazine [Phenergan] 25 mg [place] Q6HR PRN #5 supp.rect 07/01/19 Unknown Rx Justyna Root [Justyna] 250 mg PO QID PRN #30 capsule 12/21/19 Unknown Rx Metoclopramide [Reglan] 10 mg PO QID PRN #30 tablet 12/21/19 Unknown Rx Allergies Allergy/AdvReac Type Severity Reaction Status Date / Time No Known Allergies Allergy Unverified 03/18/13 16:02 ED Review of Systems ROS: Stated complaint: VOMIT/DEHYDRATED/HBS OVER 600 Other details as noted in HPI Constitutional: malaise. denies: fever Eyes: denies: eye discharge ENT: denies: congestion Respiratory: denies: cough Cardiovascular: denies: chest pain Gastrointestinal: abdominal pain, nausea, vomiting. denies: hematemesis, melena, hematochezia Genitourinary: denies: dysuria Musculoskeletal: myalgia Neurological: weakness Psychiatric: anxiety Hematological/Lymphatic: denies: easy bleeding ED Past Medical Hx - Past Medical History Hx Hypertension: Yes Hx Congestive Heart Failure: No Hx Diabetes: Yes Hx Renal Disease: Yes (ESRD) Hx Asthma: No Hx COPD: No - Surgical History Hx Appendectomy: Yes Additional Surgical History: right great toe amputated. Right foot surgery - Social History Smoking Status: Current Some Day Smoker Substance Use Type: Alcohol - Medications Home Medications: Home Medications Medication Instructions Recorded Confirmed Last Taken Type AtorvaSTATin [Lipitor] 40 mg PO QHS 05/05/19 05/05/19 Unknown History Benzocaine/Mentho [Cepacol X 1 each MM Q2HR PRN #1 packet 05/07/19 Unknown Rx Strength] Ferrous Sulfate [Feosol 325 MG tab] 325 mg PO QDAY #90 tablet 05/07/19 Unknown Rx NIFEdipine XL [Procardia Xl] 90 mg PO QDAY #90 tablet 05/07/19 Unknown Rx Phenol 1.4% [Chloraseptic] 1 spray MM PRN PRN #1 bottle 05/07/19 Unknown Rx calcitrioL [Rocaltrol] 0.25 mcg PO QDAY #90 capsule 05/07/19 Unknown Rx carvediloL [Coreg] 25 mg PO QHS #90 tablet 05/07/19 Unknown Rx carvediloL [Coreg] 37.5 mg PO QAM #90 tablet 05/07/19 Unknown Rx metFORMIN XR [Glucophage XR] 500 mg PO QDAY #90 tab 05/07/19 Unknown Rx Ciprofloxacin HCl [Ciprofloxacin 500 mg PO Q12HR #10 tab 07/01/19 Unknown Rx TAB] Promethazine [Phenergan] 25 mg PO Q6HR PRN #20 tab 07/01/19 Unknown Rx Promethazine [Phenergan] 25 mg [place] Q6HR PRN #5 supp.rect 07/01/19 Unknown Rx Justyna Root [Justyna] 250 mg PO QID PRN #30 capsule 12/21/19 Unknown Rx Metoclopramide [Reglan] 10 mg PO QID PRN #30 tablet 12/21/19 Unknown Rx ED Physical Exam - General Limitations: No Limitations General appearance: alert, in no apparent distress - Head Head exam: Present: atraumatic, normocephalic - Eye Eye exam: Present: normal appearance, EOMI. Absent: nystagmus - ENT ENT exam: Present: normal exam, normal orophraynx, mucous membranes moist, normal external ear exam - Neck Neck exam: Present: normal inspection, full ROM. Absent: tenderness, meningismus - Respiratory Respiratory exam: Present: normal lung sounds bilaterally. Absent: respiratory distress, wheezes, rales, rhonchi, stridor - Cardiovascular Cardiovascular Exam: Present: normal rhythm, tachycardia, normal heart sounds. Absent: bradycardia, irregular rhythm, systolic murmur, diastolic murmur, rubs, gallop - GI/Abdominal GI/Abdominal exam: Present: soft, normal bowel sounds. Absent: distended, tenderness, guarding, rebound, rigid, pulsatile mass - Rectal Rectal exam: Present: deferred - Extremities Exam Extremities exam: Present: normal inspection, full ROM, other (2+ pulses noted in the bilateral upper and lower extremities. There is no palpable cord. negative Homans sign. Muscular compartments are soft. The pelvis is stable.). Absent: pedal edema, calf tenderness - Back Exam Back exam: Present: normal inspection, full ROM. Absent: tenderness, CVA tenderness (R), CVA tenderness (L), paraspinal tenderness, vertebral tenderness - Neurological Exam Neurological exam: Present: alert, normal gait, other (No facial droop. Tongue midline. Extraocular movements intact bilaterally. Facial sensation intact to light touch in V1, V2, V3 distribution bilaterally. 5 and a 5 strength in 4 extremities. Sensation intact to light touch in 4 extremities.) - Psychiatric Psychiatric exam: Present: anxious - Skin Skin exam: Present: warm, dry, intact, normal color. Absent: rash ED Course Vital Signs 12/20/19 12/20/19 12/21/19 19:48 19:50 09:40 Temperature 97.5 F L Pulse Rate 105 H 91 H Respiratory 18 12 Rate Blood Pressure 188/119 Blood Pressure 158/91 [Right] O2 Sat by Pulse 98 100 Oximetry - Reevaluation(s) Reevaluation #1: 12/21/19 07:10 Differential diagnosis, including but not limited to: Viral syndrome, enteritis, dehydration, gastroparesis Assessment and plan: 44-year-old gentleman with multiple chronic medical issues, reported history of hyperglycemia, now resolved, with complaint of nausea, vomiting, diarrhea and cramping. Suspect diabetic gastroparesis. Patient abdomen soft and benign, without rebound, guarding or peritoneal signs. Laboratory studies demonstrate chronic renal insufficiency. Do not clinically suspect acute pancreatitis, elevated lipase nonspecific. Patient will be treated supportively and symptomatically, we will reassess after administration of fluids, and haloperidol. 12/21/19 07:11 Elevated blood pressure reviewed and appreciated, this is a chronic finding, likely exacerbated by patient's underlying symptomatology, given relative state of volume depletion, we will withhold antihypertensives at this time Reevaluation #2: 12/21/19 10:11 Blood pressure improved. Patient able to tolerate liquid feeds. There is no active vomiting at this time. This is most likely an exacerbation of underlying gastroparesis. Patient will need to demonstrate and participate in better glycemic control, diet lifestyle modifications. Given inability to tolerate liquid feeds, improvement in hypertension, lack of active vomiting at this time, patient does not meet criteria for admission or hospitalization ED Medical Decision Making - Lab Data Result diagrams: 12/20/19 19:59 12/20/19 19:59 Vital Signs 12/20/19 12/20/19 19:48 19:50 Temperature 97.5 F L Pulse Rate 105 H Respiratory 18 Rate Blood Pressure 188/119 O2 Sat by Pulse 98 Oximetry Lab Results 12/20/19 12/20/19 12/20/19 Range/Units 19:59 19:59 Unknown WBC 11.7 H (4.5-11.0) K/mm3 RBC 4.23 (3.65-5.03) M/mm3 Hgb 11.7 L (11.8-15.2) gm/dl Hct 37.3 (35.5-45.6) % MCV 88 (84-94) fl MCH 28 (28-32) pg MCHC 31 L (32-34) % RDW 14.7 (13.2-15.2) % Plt Count 243 (140-440) K/mm3 Lymph % (Auto) 6.4 L (13.4-35.0) % [place] % (Auto) 4.6 (0.0-7.3) % Eos % (Auto) 0.0 (0.0-4.3) % Baso % (Auto) 0.3 (0.0-1.8) % Lymph # (Auto) 0.8 L (1.2-5.4) K/mm3 [place] # (Auto) 0.5 (0.0-0.8) K/mm3 Eos # (Auto) 0.0 (0.0-0.4) K/mm3 Baso # (Auto) 0.0 (0.0-0.1) K/mm3 Seg Neutrophils % 88.7 H (40.0-70.0) % Seg Neutrophils # 10.4 H (1.8-7.7) K/mm3 Sodium 146 H (137-145) mmol/L Potassium 4.1 (3.6-5.0) mmol/L Chloride 101.7 (98-107) mmol/L Carbon Dioxide 24 (22-30) mmol/L Anion Gap 24 mmol/L BUN 43 H (9-20) mg/dL Creatinine 5.2 H (0.8-1.3) mg/dL Estimated GFR 15 ml/min BUN/Creatinine Ratio 8 % Glucose 190 H (75-100) mg/dL Calcium 10.3 H (8.4-10.2) mg/dL Total Bilirubin 0.30 (0.1-1.2) mg/dL AST 23 (5-40) units/L ALT 38 (7-56) units/L Alkaline Phosphatase 248 H (35-129) units/L Total Protein 8.8 H (6.3-8.2) g/dL Albumin 5.5 H (3.9-5) g/dL Albumin/Globulin Ratio 1.7 % Lipase 86 H (13-60) units/L Urine Color Colorless (Yellow) Urine Turbidity Clear (Clear) Urine pH 7.0 (5.0-7.0) Ur Specific [place] 1.009 (1.003-1.030) Urine Protein 100 mg/dl (Negative) mg/dL Urine Glucose (UA) >=500 (Negative) mg/dL Urine Ketones Neg (Negative) mg/dL Urine Blood Sm (Negative) Urine Nitrite Neg (Negative) Urine Bilirubin Neg (Negative) Urine Urobilinogen < 2.0 (<2.0) mg/dL Ur Leukocyte Esterase Neg (Negative) Urine WBC (Auto) < 1.0 (0.0-6.0) /HPF Urine RBC (Auto) 3.0 (0.0-6.0) /HPF Urine Mucus Few /HPF - EKG Data -: EKG Interpreted by Or EKG shows normal: sinus rhythm Rate: normal - EKG Data 12/21/19 07:09 Sinus rhythm, tachycardia, 108 bpm, normal axis, the QTC is 450 ms, there is left ventricular hypertrophy, there is some motion artifact, there is poor R wave progression, this EKG is abnormal, there is atrial enlargement, the EKG is not a STEMI, the EKG appears to be unchanged from prior EKG from April 2019 Critical care attestation.: If time is entered above; I have spent that time in minutes in the direct care of this critically ill patient, excluding procedure time. ED Disposition Clinical Impression: CKD (chronic kidney disease), Elevated blood pressure reading, History of nausea and vomiting Disposition: DC-01 TO HOME OR SELFCARE Is pt being admited?: No Does the pt Need Aspirin: No Condition: Stable Additional Instructions: Symptoms most likely coming from diabetic gastroparesis. This will typically recur until the patient's blood sugar levels are consistently improved. Therefore, the patient will need to eat plenty of fiber, green vegetables, lean protein, and avoid consumption of carbohydrates, sugars, and processed foods. Patient's recent hemoglobin A1c was found to be 11.6, which indicates that patient has chronically elevated blood sugar levels, which is the most likely reason the patient is having recurrent episodes of diabetic gastroparesis. It typically takes a few weeks to a few months for the symptoms to improve, assuming improvement in hemoglobin A1c, and maintenance of blood sugar levels. Patient may also purchase hot sauce at any local supermarkets, and apply this to his anterior abdominal wall when he developed symptoms, this may assist in relieving symptomatology. Patient may take the prescribed nausea medications as needed and directed Patient was also found to have high blood pressure today. Please make certain to take blood pressure medications. Long-term complications of hypertension and elevated blood pressure include stroke, heart attack, disability, paralysis, permanent loss of quality of life. Minimize/avoid consumption of Motrin, ibuprofen, Naprosyn, Aleve, heavy and spicy foods. Recommend that patient remain compliant with his current prescription medications. Symptoms most likely coming from diabetic gastroparesis, which is a condition where the intestines get irritated typically from high levels of blood sugar. Treatment involves improvement in underlying diabetes. Therefore, recommend that patient remain compliant with diabetic medications, and compliant with a diabetic diet. Advance diet as tolerated, participate in diabetic/renal appropriate diet, avoid consumption of alcohol, sugary sweets, processed foods, and simple carbohydrates. Please follow-up with a primary care doctor or alterations manager within the next 7 to 10 days. Please return to the emergency room right away with new pain, worsening pain, migration of pain, projectile vomiting, change in mental status, confusion, inability to tolerate liquid feeds, new, worsened or different symptoms not present on the initial emergency room evaluation Prescriptions: Justyna Root [Justyna] 250 mg PO QID PRN #30 capsule PRN Reason: Nausea Metoclopramide [Reglan] 10 mg PO QID PRN #30 tablet PRN Reason: Nausea Referrals: CHERELLE MYLES MD [Staff Physician] - 7-10 days ANJEL GARCÍA MD [Staff Physician] - 7-10 days
[2019-12-21] MEDS ORDERED: ACETAMINOPHEN 325 MG TAB PO ONE (07:45)
[2019-12-21] MEDS ORDERED: ONDANSETRON 4 MG ODT TAB PO ONE (07:45)
[2019-12-21] MEDS ORDERED: DICYCLOMINE 10 MG/5 ML ORAL LIQD PO NR (08:00)
[2019-12-21 09:41] VITALS: BP 158/91
== END 2019-12-21 11:00 | disposition home or self-care (01) ==
LOC: ED 18:57
DX: E11.22 Type 2 diabetes mellitus with diabetic chronic kidney disease (principal); I12.9 Hypertensive chronic kidney disease with stage 1 through stage 4 chronic kidney disease, or unspecified chronic kidney disease; N18.9 Chronic kidney disease, unspecified; R03.0 Elevated blood-pressure reading, without diagnosis of hypertension; F17.200 Nicotine dependence, unspecified, uncomplicated; Z79.899 Other long term (current) drug therapy; Z98.890 Other specified postprocedural states
CPT/HCPCS: 36415; 80053; 81001; 82550; 83690; 83735; 85025; 93005; 96372; 99284; J1630; J7050; Q0162

== ENCOUNTER 2020-08-01 17:24 | Inpatient (IN) | payer MEDICAID, MEDICARE, OTHER ==
[2020-08-01 19:46] LABS: Basophils # (Auto) 0.1 K/mm3 (0.0-0.1); Basophils % (Auto) 0.5 % (0.0-1.8); Eosinophils % (Auto) 0.1 % (0.0-4.3); Hematocrit 36.4 % (35.5-45.6); Lymphocytes # (Auto) 2.1 K/mm3 (1.2-5.4); Lymphocytes % (Auto) 18.8 % (13.4-35.0); Mean Corpuscular HGB Conc 33 % (32-34); Mean Corpuscular Volume 85 fl (84-94); Monocytes # (Auto) 0.4 K/mm3 (0.0-0.8); Monocytes % (Auto) 3.9 % (0.0-7.3); Platelet Count 290 K/mm3 (140-440); Red Blood Count 4.26 M/mm3 (3.65-5.03); Red Cell Distribution Width 15.7 % (13.2-15.2)
[2020-08-01 20:09] LABS: Albumin 4.3 g/dL (3.9-5); Calcium 9.3 mg/dL (8.4-10.2)
[2020-08-01] MEDS ORDERED: ONDANSETRON 4 MG ODT TAB PO ONE (21:25)
--- NOTE | 2020-08-01 21:27 | Event Note ---
ED Screening Note Date of service: 08/01/20 Time: 21:25 ED Screening Note: 44-year-old male patient with history of diabetes and stage V renal insufficiency, not currently on dialysis, presents emergency department complaints of abdominal pain, nausea, vomiting, and black stools for 2 days. No known sick contacts. No current steroid or antibiotic use. Patient states he has been compliant with his medication regimen. Dialysis has been discussed but he does not currently have vascular access. Tachycardic and actively vomiting in triage. General: Awake, appropriately interactive, no acute distress. Neck: Supple. Full range of motion intact. Cardiovascular: Normal peripheral perfusion. Pulmonary: No respiratory distress. Patient is speaking normally without use of accessory muscles. Skin: No apparent rashes or lesions. Neurological: No facial asymmetry. Speech is clear. Follows commands. Patient is alert and oriented. Musculoskeletal: Moves all four extremities spontaneously with normal range of motion. Psych: Cooperative. Appropriate mood and affect. I have greeted and performed a focused rapid initial assessment of this patient. A comprehensive ED assessment and evaluation of the patient, analysis of all test results, and completion of the medical decision-making process will be conducted by additional ED providers. This initial assessment/diagnostic orders/clinical plan/treatment(s) is/are subject to change based on patients health status, clinical progression and re-assessment. Further treatment and workup at subsequent clinical provider's discretion. Patient/guardian urged not to elope from the ED as their condition may be serious if not clinically ass essed and managed.
[2020-08-01] MEDS ORDERED: ONDANSETRON 4 MG/2 ML INJ ONE (21:34)
[2020-08-01] MEDS ORDERED: ONDANSETRON 4 MG/2 ML INJ IV ONE ×2 (21:37→21:57)
[2020-08-01] MEDS ORDERED: HYDROmorphone 1 MG/1 ML INJ IV ONE (22:00)
[2020-08-01] MEDS ORDERED: SODIUM CHLORIDE 0.9% 1000 ML 1,000 ML IV ONE (22:02)
--- NOTE | 2020-08-01 22:07 | Emergency Department Report ---
ED Abdominal Pain HPI - General Chief Complaint: Abdominal Pain Stated Complaint: ABD PAIN PUI?: No Time Seen by Provider: 08/01/20 21:57 Source: patient Mode of arrival: Wheelchair Limitations: No Limitations - History of Present Illness Initial Comments: Patient is a 44-year-old male who presents emergency room with complaints of abdominal pain. Patient states that it is hurting in his left upper and epigastric region. Patient states is been going on for 1 week. Patient states that he believes he is in DKA. Patient states he is also having nausea and vomiting. Patient states he cannot stop vomiting. Patient states he has had anything solid or fluids for about 4 days. Patient states he is compliant with his insulin. 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 Patient states he is not on dialysis. Patient states he does not know what his baseline creatinine is. Patient states the pain is a 10 out of 10. Patient states the pain is better with rest and worse with vomiting and movement. Patient denies blood in his vomitus. Patient denies recent travel. Patient denies recent international travel. Patient denies exposure to the novel coronavirus. Patient denies sick contacts. Patient denies fever and chills. Patient denies cough. Patient denies diarrhea. Patient denies coming in contact with anybody with symptoms of the novel coronavirus. MD Complaint: abdominal pain -: Sudden, days(s) Location: LUQ, epigastric Radiation: none Migration to: no migration Severity: severe Severity scale (0 -10): 10 Quality: stabbing Consistency: constant Improves With: rest Worsens With: eating, vomiting, movement Associated Symptoms: nausea, vomiting. denies: diarrhea, fever, chills, constipation, dysuria, hematemesis, hematochezia, melena, hematuria, syncope - Related Data Home Medications Medication Instructions Recorded Confirmed Last Taken AtorvaSTATin [Lipitor] 40 mg PO QHS 05/05/19 05/05/19 Unknown Previous Rx's Medication Instructions Recorded Last Taken Type Benzocaine/Mentho [Cepacol X 1 each MM Q2HR PRN #1 packet 05/07/19 Unknown Rx Strength] Ferrous Sulfate [Feosol 325 MG tab] 325 mg PO QDAY #90 tablet 05/07/19 Unknown Rx NIFEdipine XL [Procardia Xl] 90 mg PO QDAY #90 tablet 05/07/19 Unknown Rx Phenol 1.4% [Chloraseptic] 1 spray MM PRN PRN #1 bottle 05/07/19 Unknown Rx calcitrioL [Rocaltrol] 0.25 mcg PO QDAY #90 capsule 05/07/19 Unknown Rx carvediloL [Coreg] 25 mg PO QHS #90 tablet 05/07/19 Unknown Rx carvediloL [Coreg] 37.5 mg PO QAM #90 tablet 05/07/19 Unknown Rx metFORMIN XR [Glucophage XR] 500 mg PO QDAY #90 tab 05/07/19 Unknown Rx Ciprofloxacin HCl [Ciprofloxacin 500 mg PO Q12HR #10 tab 07/01/19 Unknown Rx TAB] Promethazine [Phenergan] 25 mg PO Q6HR PRN #20 tab 07/01/19 Unknown Rx Promethazine [Phenergan] 25 mg ND Q6HR PRN #5 supp.rect 07/01/19 Unknown Rx Justyna Root [Justyna] 250 mg PO QID PRN #30 capsule 12/21/19 Unknown Rx Metoclopramide [Reglan] 10 mg PO QID PRN #30 tablet 12/21/19 Unknown Rx Allergies Allergy/AdvReac Type Severity Reaction Status Date / Time No Known Allergies Allergy Unverified 03/18/13 16:02 ED Review of Systems ROS: Stated complaint: ABD PAIN Other details as noted in HPI Constitutional: denies: chills, fever Eyes: denies: eye pain, eye discharge, vision change ENT: denies: ear pain, throat pain Respiratory: denies: cough, shortness of breath, wheezing Cardiovascular: denies: chest pain, palpitations Endocrine: no symptoms reported Gastrointestinal: as per HPI, abdominal pain, nausea, vomiting. denies: diarrhea Genitourinary: denies: urgency, dysuria Musculoskeletal: denies: back pain, joint swelling, arthralgia Skin: denies: rash, lesions Neurological: denies: headache, weakness, paresthesias Psychiatric: denies: anxiety, depression Hematological/Lymphatic: denies: easy bleeding, easy bruising ED Past Medical Hx - Past Medical History Previous Medical History?: Yes Hx Hypertension: Yes Hx Congestive Heart Failure: No Hx Diabetes: Yes Hx Renal Disease: Yes (ckd4) Hx Asthma: No Hx COPD: No - Surgical History Past Surgical History?: Yes Hx Appendectomy: Yes Additional Surgical History: right great toe amputated. Right foot surgery - Family History Family history: no significant - Social History Smoking Status: Current Some Day Smoker Substance Use Type: Alcohol - Medications Home Medications: Home Medications Medication Instructions Recorded Confirmed Last Taken Type AtorvaSTATin [Lipitor] 40 mg PO QHS 05/05/19 05/05/19 Unknown History Benzocaine/Mentho [Cepacol X 1 each MM Q2HR PRN #1 packet 05/07/19 Unknown Rx Strength] Ferrous Sulfate [Feosol 325 MG tab] 325 mg PO QDAY #90 tablet 05/07/19 Unknown Rx NIFEdipine XL [Procardia Xl] 90 mg PO QDAY #90 tablet 05/07/19 Unknown Rx Phenol 1.4% [Chloraseptic] 1 spray MM PRN PRN #1 bottle 05/07/19 Unknown Rx calcitrioL [Rocaltrol] 0.25 mcg PO QDAY #90 capsule 05/07/19 Unknown Rx carvediloL [Coreg] 25 mg PO QHS #90 tablet 05/07/19 Unknown Rx carvediloL [Coreg] 37.5 mg PO QAM #90 tablet 05/07/19 Unknown Rx metFORMIN XR [Glucophage XR] 500 mg PO QDAY #90 tab 05/07/19 Unknown Rx Ciprofloxacin HCl [Ciprofloxacin 500 mg PO Q12HR #10 tab 07/01/19 Unknown Rx TAB] Promethazine [Phenergan] 25 mg PO Q6HR PRN #20 tab 07/01/19 Unknown Rx Promethazine [Phenergan] 25 mg ND Q6HR PRN #5 supp.rect 07/01/19 Unknown Rx Justyna Root [Justyna] 250 mg PO QID PRN #30 capsule 12/21/19 Unknown Rx Metoclopramide [Reglan] 10 mg PO QID PRN #30 tablet 12/21/19 Unknown Rx ED Physical Exam - General Limitations: No Limitations General appearance: alert, in no apparent distress - Head Head exam: Present: atraumatic, normocephalic - Eye Eye exam: Present: normal appearance - ENT ENT exam: Present: mucous membranes dry - Neck Neck exam: Present: normal inspection - Respiratory Respiratory exam: Present: normal lung sounds bilaterally. Absent: respiratory distress, wheezes, rales - Cardiovascular Cardiovascular Exam: Present: regular rate, normal rhythm. Absent: systolic murmur, diastolic murmur, rubs, gallop - GI/Abdominal GI/Abdominal exam: Present: soft, tenderness, normal bowel sounds. Absent: distended, guarding - Rectal Rectal exam: Present: deferred - Extremities Exam Extremities exam: Present: normal inspection - Back Exam Back exam: Present: normal inspection - Neurological Exam Neurological exam: Present: alert, oriented X3 - Psychiatric Psychiatric exam: Present: normal affect, normal mood - Skin Skin exam: Present: warm, dry, intact, normal color. Absent: rash ED Course Vital Signs 08/01/20 19:26 Temperature 98.3 F Pulse Rate 114 H Respiratory 18 Rate Blood Pressure 164/101 O2 Sat by Pulse 100 Oximetry - Reevaluation(s) Reevaluation #1: Patient CT is pending. Patient states he is feeling a little bit better after the pain meds and nausea medication. Patient states he still feels nauseous. 08/01/20 23:04 Reevaluation #2: Patient states he is having increased pain and having some more nausea vomiting. Patient will be given another dose of pain medications and Zofran. I discussed all results with patient. I discussed plan of care with patient. Patient agrees with plan of care and admission. Patient to be admitted to the hospitalist service. 08/02/20 01:05 - Consultations Consultation #1: Hospitalist consulted for admission. Hospitalist to admit patient. 08/02/20 01:05 ED Medical Decision Making - Lab Data Result diagrams: 08/01/20 19:36 08/01/20 19:36 - Radiology Data Radiology results: report reviewed CT ABDOMEN AND PELVIS WITHOUT CONTRAST INDICATION / CLINICAL INFORMATION: Patient complains of "Generalized" abd pain. TECHNIQUE: Axial CT images were obtained through the abdomen and pelvis without IV contrast. All CT scans at this location are performed using CT dose reduction for ALARA by means of automated exposure control. COMPARISON: CT abdomen and pelvis without contrast from 07/01/2019. FINDINGS: LOWER CHEST: There are similar patchy ground glass opacities along the lung bases without other significant abnormalities. LIVER: No significant abnormality. GALLBLADDER: No significant abnormality. BILE DUCTS: No significant abnormality. PANCREAS: No significant abnormality. SPLEEN: Small than expected without other significant abnormalities. ADRENALS: There is similar symmetric enlargement of the adrenal glands without a suspicious nodule or mass. RIGHT KIDNEY / URETER: No significant abnormality. LEFT KIDNEY / URETER: No significant abnormality. STOMACH / SMALL BOWEL: No significant abnormality. COLON: No significant abnormality. APPENDIX: Not visualized. PERITONEUM: No free fluid. No free air. No fluid collection. LYMPH NODES: No significant adenopathy. AORTA / ARTERIES: The aorta is normal in caliber with severe generalized atherosclerosis. IVC / VEINS: No significant abnormality. URINARY BLADDER: The bladder is well-distended without identification of acute abnormalities. REPRODUCTIVE ORGANS: No significant abnormality. ADDITIONAL FINDINGS: An area of hyperdense soft tissue attenuation is seen measuring 6.6 x 4.0 cm along the inferior margin of the right hepatic lobe on images 57 through 85 of series 2 that is in close proximity to the right colon and multiple small bowel loops and is not well evaluated by noncontrast technique. SKELETAL SYSTEM: No significant abnormality. IMPRESSION: 1. Nonspecific area of increased attenuation along the right upper quadrant as above is favored to represent confluent small bowel loops. A mass is a less likely consideration. A CT abdomen with contrast would be helpful for further evaluation. 2. No other acute abnormalities. 3. Additional findings as above. - Medical Decision Making Patient is a 44-year-old male that presents emergency room with complaints of nausea, vomiting, abdominal pain. Patient is not been able to hold any type of p.o. intake down for several days. Patient has a history of chronic kidney disease with a baseline creatinine of 3-4. Patient having frequent vomiting while waiting in the waiting room and the patient was brought to acute care room. Patient given fluids, Dilaudid and Zofran. Patient symptoms initially improved. Patient required a second dose of Dilaudid and Zofran while in the ER. Patient had labs done which were consistent with worsening chronic kidney condition and acute on chronic kidney failure. Patient creatinine is 10. Patient had a noncontrast CT done and it was nonspecific and had no acute findings on the CT scan. Patient admitted to the hospital service for further evaluation treatment. Critical care time documented due to the multiple reassessments, prolonged time at the bedside, interpretation of diagnostics and labs. - Differential Diagnosis Gastroenteritis, intractable nausea vomiting, renal failure, uremia Critical Care Time: Yes Critical care time in (mins) excluding proc time.: 35 Critical care attestation.: If time is entered above; I have spent that time in minutes in the direct care of this critically ill patient, excluding procedure time. Critical Care Time: 35 minutes ED Disposition Clinical Impression: Intractable vomiting with nausea Acute on chronic renal failure Qualifiers: Acute renal failure type: unspecified Chronic kidney disease stage: unspecified stage Qualified Code(s): N17.9 - Acute kidney failure, unspecified; N18.9 - Chronic kidney disease, unspecified Abdominal pain Qualifiers: Abdominal location: generalized Qualified Code(s): R10.84 - Generalized abdominal pain Disposition: 09 OP ADMIT IP TO THIS HOSP Is pt being admited?: Yes Does the pt Need Aspirin: No Condition: Critical Time of Disposition: 01:06
[2020-08-01 22:13] LABS: INR 1.01 (0.87-1.13)
--- NOTE | 2020-08-02 00:58 | Cat Scan Report ---
CT ABDOMEN AND PELVIS WITHOUT CONTRAST INDICATION / CLINICAL INFORMATION: Patient complains of "Generalized" abd pain. TECHNIQUE: Axial CT images were obtained through the abdomen and pelvis without IV contrast. All CT scans at [facility] location are performed using CT dose reduction for ALARA by means of automated exposure control. COMPARISON: CT abdomen and pelvis without contrast from 07/01/2019. FINDINGS: LOWER CHEST: There are similar patchy ground glass opacities along the lung bases without other signi ficant abnormalities. LIVER: No significant abnormality. GALLBLADDER: No significant abnormality. BILE DUCTS: No significant abnormality. PANCREAS: No significant abnormality. SPLEEN: Small than expected without other significant abnormalities. ADRENALS: There is similar symmetric enlargement of the adrenal glands without a suspicious nodule or mass. RIGHT KIDNEY / URETER: No significant abnormality. LEFT KIDNEY / URETER: No significant abnormality. STOMACH / SMALL BOWEL: No significant abnormality. COLON: No significant abnormality. APPENDIX: Not visualized. PERITONEUM: No free fluid. No free air. No fluid collection. LYMPH NODES: No significant adenopathy. AORTA / ARTERIES: The aorta is normal in caliber with severe generalized atherosclerosis. IVC / VEINS: No significant abnormality. URINARY BLADDER: The bladder is well-distended without identification of acute abnormalities. REPRODUCTIVE ORGANS: No significant abnormality. ADDITIONAL FINDINGS: An area of hyperdense soft tissue attenuation is seen measuring 6.6 x 4.0 cm dirk ng the inferior margin of the right hepatic lobe on images 57 through 85 of series 2 that is in close proximity to the right colon and multiple small bowel loops and is not well evaluated by noncontrast technique. SKELETAL SYSTEM: No significant abnormality. IMPRESSION: 1. Nonspecific area of increased attenuation along the right upper quadrant as above is favored to re present confluent small bowel loops. A mass is a less likely consideration. A CT abdomen with contras t would be helpful for further evaluation. 2. No other acute abnormalities. 3. Additional findings as above. Signer Name: Carlos Vázquez MD Signed: 08/02/2020 12:53 AM Workstation Name: [id number]
[2020-08-02] MEDS ORDERED: ONDANSETRON 4 MG/2 ML INJ IV ONE (01:06)
[2020-08-02] MEDS ORDERED: HYDROmorphone 1 MG/1 ML INJ IV ONE (01:06)
[2020-08-02] MEDS ORDERED: PHENOL 1.4% 177 ML BOTTLE MM PRN (01:54)
[2020-08-02] MEDS ORDERED: METOCLOPRAMIDE 10 MG TAB PO PRN ×2 (01:54→02:14)
[2020-08-02] MEDS ORDERED: ONDANSETRON 4 MG/2 ML INJ IV PRN ×2 (01:56→17:17)
[2020-08-02] MEDS ORDERED: ACETAMINOPHEN 325 MG TAB PO PRN (01:56)
[2020-08-02] MEDS ORDERED: METOCLOPRAMIDE 10 MG/2 ML INJ IV PRN ×2 (01:56→02:15)
[2020-08-02] MEDS ORDERED: DEXTROSE 50% IN WATER (25GM) 50 ML SYRINGE IV PRN (01:56)
--- NOTE | 2020-08-02 02:03 | History and Physical Report ---
History of Present Illness Date of examination: 08/02/20 Date of admission: 08/02/20 01:12 Chief complaint: Intractable nausea vomiting Abdominal pain History of present illness: 44-year-old male with past medical history of diabetes hypertension and renal disease was brought to the emergency room with complaints of abdominal pain which is in his left upper and epigastric region 12/22. Patient states is been going on for 1 week. Patient states that he believes he is in DKA. Patient states he is also having nausea and vomiting. Patient states he cannot stop vomiting. Patient states he has had anything solid or fluids for about 4 days. Patient states he is compliant with his insulin. 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 Patient states he is not on dialysis. Patient states he does not know what his baseline creatinine is. Patient states the pain is better with rest and worse with vomiting and movement. Patient denies blood in his vomitus. In the emergency room patient's BUN is [address] scan of the abdomen showed no acute intra-abdominal pathology Past History Past Medical History: diabetes, hypertension, renal failure Medications and Allergies Allergies Allergy/AdvReac Type Severity Reaction Status Date / Time No Known Allergies Allergy Unverified 03/18/13 16:02 Home Medications Medication Instructions Recorded Confirmed Last Taken Type AtorvaSTATin [Lipitor] 40 mg PO QHS 05/05/19 05/05/19 Unknown History Benzocaine/Mentho [Cepacol X 1 each MM Q2HR PRN #1 packet 05/07/19 Unknown Rx Strength] Ferrous Sulfate [Feosol 325 MG tab] 325 mg PO QDAY #90 tablet 05/07/19 Unknown Rx NIFEdipine XL [Procardia Xl] 90 mg PO QDAY #90 tablet 05/07/19 Unknown Rx Phenol 1.4% [Chloraseptic] 1 spray MM PRN PRN #1 bottle 05/07/19 Unknown Rx calcitrioL [Rocaltrol] 0.25 mcg PO QDAY #90 capsule 05/07/19 Unknown Rx carvediloL [Coreg] 25 mg PO QHS #90 tablet 05/07/19 Unknown Rx carvediloL [Coreg] 37.5 mg PO QAM #90 tablet 05/07/19 Unknown Rx metFORMIN XR [Glucophage XR] 500 mg PO QDAY #90 tab 05/07/19 Unknown Rx Ciprofloxacin HCl [Ciprofloxacin 500 mg PO Q12HR #10 tab 07/01/19 Unknown Rx TAB] Promethazine [Phenergan] 25 mg PO Q6HR PRN #20 tab 07/01/19 Unknown Rx Promethazine [Phenergan] 25 mg NE Q6HR PRN #5 supp.rect 07/01/19 Unknown Rx Justyna Root [Justyna] 250 mg PO QID PRN #30 capsule 12/21/19 Unknown Rx Metoclopramide [Reglan] 10 mg PO QID PRN #30 tablet 12/21/19 Unknown Rx Review of Systems Gastrointestinal: abdominal pain, nausea, vomiting Exam - Constitutional Vitals: Temp Pulse Resp BP Pulse Ox 98.8 F 78 20 137/85 100 08/02/20 01:39 08/02/20 01:39 08/02/20 01:39 08/02/20 01:39 08/02/20 01:39 General appearance: Present: no acute distress, well-nourished - EENT Eyes: Present: PERRL ENT: hearing intact, clear oral mucosa - Neck Neck: Present: supple, normal ROM - Respiratory Respiratory effort: normal Respiratory: bilateral: CTA - Cardiovascular Heart Sounds: Present: S1 & S2. Absent: rub, click - Extremities Extremities: pulses symmetrical, No edema Peripheral Pulses: within normal limits - Abdominal General gastrointestinal: Present: soft, tender, non-distended, normal bowel sounds Male genitourinary: Present: normal - Integumentary Integumentary: Present: clear, warm, dry - Musculoskeletal Musculoskeletal: gait normal, strength equal bilaterally - Psychiatric Psychiatric: appropriate mood/affect, intact judgment & insight - Neurologic Neurologic: CNII-XII intact, moves all extremities Results - Labs CBC & Chem 7: 08/01/20 19:36 08/01/20 19:36 Labs: Laboratory Last Values WBC 11.2 K/mm3 (4.5-11.0) H 08/01/20 19:36 RBC 4.26 M/mm3 (3.65-5.03) 08/01/20 19:36 Hgb 12.0 gm/dl (11.8-15.2) 08/01/20 19:36 Hct 36.4 % (35.5-45.6) 08/01/20 19:36 MCV 85 fl (84-94) 08/01/20 19:36 MCH 28 pg (28-32) 08/01/20 19:36 MCHC 33 % (32-34) 08/01/20 19:36 RDW 15.7 % (13.2-15.2) H 08/01/20 19:36 Plt Count 290 K/mm3 (140-440) 08/01/20 19:36 Lymph % (Auto) 18.8 % (13.4-35.0) 08/01/20 19:36 [place] % (Auto) 3.9 % (0.0-7.3) 08/01/20 19:36 Eos % (Auto) 0.1 % (0.0-4.3) 08/01/20 19:36 Baso % (Auto) 0.5 % (0.0-1.8) 08/01/20 19:36 Lymph # (Auto) 2.1 K/mm3 (1.2-5.4) 08/01/20 19:36 [place] # (Auto) 0.4 K/mm3 (0.0-0.8) 08/01/20 19:36 Eos # (Auto) 0.0 K/mm3 (0.0-0.4) 08/01/20 19:36 Baso # (Auto) 0.1 K/mm3 (0.0-0.1) 08/01/20 19:36 Seg Neutrophils % 76.7 % (40.0-70.0) H 08/01/20 19:36 Seg Neutrophils # 8.6 K/mm3 (1.8-7.7) H 08/01/20 19:36 PT 13.1 Sec. (12.2-14.9) 08/01/20 21:49 INR 1.01 (0.87-1.13) 08/01/20 21:49 APTT 28.0 Sec. (24.2-36.6) 08/01/20 21:49 VBG pH 7.385 (7.320-7.420) 08/01/20 21:49 Sodium 137 mmol/L (137-145) 08/01/20 19:36 Potassium 4.1 mmol/L (3.6-5.0) 08/01/20 19:36 Chloride 103.9 mmol/L (98-107) 08/01/20 19:36 Carbon Dioxide 14 mmol/L (22-30) L 08/01/20 19:36 Anion Gap 23 mmol/L 08/01/20 19:36 BUN 61 mg/dL (9-20) H 08/01/20 19:36 Creatinine 10.0 mg/dL (0.8-1.3) H 08/01/20 19:36 Estimated GFR 7 ml/min 08/01/20 19:36 BUN/Creatinine Ratio 6 % 08/01/20 19:36 Glucose 80 mg/dL (75-100) 08/01/20 19:36 POC Glucose 59 mg/dL (70-105) L 08/01/20 21:02 Lactic Acid 1.30 mmol/L (0.7-2.0) 08/01/20 21:49 Calcium 9.3 mg/dL (8.4-10.2) 08/01/20 19:36 Magnesium 2.00 mg/dL (1.7-2.3) 08/01/20 21:49 Total Bilirubin 0.30 mg/dL (0.1-1.2) 08/01/20 19:36 AST 22 units/L (5-40) 08/01/20 19:36 ALT 43 units/L (7-56) 08/01/20 19:36 Alkaline Phosphatase 158 units/L (35-129) H 08/01/20 19:36 Total Protein 7.7 g/dL (6.3-8.2) 08/01/20 19:36 Albumin 4.3 g/dL (3.9-5) 08/01/20 19:36 Albumin/Globulin Ratio 1.3 % 08/01/20 19:36 Lipase 20 units/L (13-60) 08/01/20 19:36 - Imaging and Cardiology CT scan - abdomen: report reviewed Assessment and Plan VTE prophylaxis?: Chemical Plan of care discussed with patient/family: Yes - Patient Problems (1) Acute on chronic renal failure Current Visit: Yes Status: Acute Qualifiers: Acute renal failure type: unspecified Chronic kidney disease stage: unspecified stage Qualified Code(s): N17.9 - Acute kidney failure, unspecified; N18.9 - Chronic kidney disease, unspecified Plan to address problem: Admit the patient to the medical telemetry. Put the patient on 1800 kcal ADA renal diet. Half-normal saline at the rate of 100 cc/h. We will consult nephrology for further evaluation and treatment. Avoid nephrotoxic drug. Recheck BMP in the morning (2) Intractable vomiting with nausea Current Visit: Yes Status: Acute Plan to address problem: Pepcid 20 mg p.o. twice daily. Zofran 4 mg IV every 6 hours as needed. Reglan 10 mg IV every 6 hours as needed. If needed will consult GI (3) Hypertension Current Visit: Yes Status: Acute Plan to address problem: Coreg 37.5 mg p.o. every morning and Coreg 25 mg p.o. nightly. Hydralazine 10 mg IV every 6 hours as needed. Nifedipine XL 90 mg p.o. daily. We will monitor the blood pressure closely (4) Abdominal pain Current Visit: Yes Status: Acute Qualifiers: Abdominal location: generalized Qualified Code(s): R10.84 - Generalized abdominal pain Plan to address problem: Tylenol 650 mg p.o. every 6 hours as needed. Pepcid 20 mg p.o. twice daily. Zofran 4 mg IV every 6 hours as needed. If needed will consult GI (5) Diabetes mellitus Current Visit: No Status: Chronic Plan to address problem: We will put the patient on 1800 kcal ADA diet. Humalog sliding scale Accu-Chek before meals and at bedtime with moderate dose coverage. Will consult for diabetic education. Recheck BMP in the morning (6) DVT prophylaxis Current Visit: Yes Status: Acute Plan to address problem: Heparin 5000 units subcu every 8 hours for DVT prophylaxis. Pepcid 20 mg p.o. twice daily for GI prophylaxis. Patient is a full code
[2020-08-02] MEDS: hydrALAZINE 20 MG/1 ML INJ IV PRN ×2 (03:20→06:17)
[2020-08-02] MEDS: SODIUM CHLORIDE 0.45% 1000 ML 1,000 ML IV SCH ×2 (03:21→11:51)
[2020-08-02 03:47] LABS: Bacteria,Urine 1+ /HPF (Negative); Bilirubin,Urine NEG (Negative); Blood,Urine SM (Negative); Color,Urine Straw (Yellow); Urobilinogen,Urine < 2.0 mg/dL (<2.0)
[2020-08-02 03:48] LABS: Protein,Urine >500 mg/dL (Negative)
[2020-08-02] MEDS: IPRATROPIUM/ALBUTEROL SULFATE 3 ML AMPUL.NEB IH SCH ×3 (06:50→21:28)
[2020-08-02] MEDS: INSULIN LISPRO 100 UNIT/ML SUB-Q SCH ×4 (09:31→22:36)
[2020-08-02 09:46] LABS: Calcium 8.8 mg/dL (8.4-10.2)
[2020-08-02] MEDS ORDERED: SIMETHICONE 80 MG CHEW TAB PO PRN (10:00)
[2020-08-02] MEDS ORDERED: FAMOTIDINE 20 MG TAB PO SCH (10:00)
[2020-08-02] MEDS ORDERED: MORPHINE 2 MG/1 ML INJ IV PRN (10:00)
[2020-08-02] MEDS ORDERED: FAMOTIDINE 10 MG TAB PO SCH ×2 (10:00)
[2020-08-02] MEDS ORDERED: CIPROFLOXACIN HCL 500 MG PO SCH (10:00)
[2020-08-02] MEDS: FERROUS SULFATE 325 MG TAB PO SCH (10:02)
[2020-08-02] MEDS: NIFEdipine XL 90 MG TAB PO SCH (10:02)
[2020-08-02] MEDS: FAMOTIDINE 20 MG TAB PO SCH ×2 (10:02→22:42)
[2020-08-02] MEDS: CALCITRIOL 0.25 MCG CAP PO SCH (10:02)
[2020-08-02] MEDS: carvediloL 12.5 MG TAB PO SCH (10:02)
--- NOTE | 2020-08-02 11:00 | Progress Note ---
History Interval history: Patient was seen and evaluated this morning, patient was complaining of abdominal pain, belching. Nausea and vomiting getting better. I put a consult for GI to evaluate the patient. Patient has stage V renal disease and nephrology is consulted. Patient admitted earlier this morning. Hospitalist Physical - Constitutional Vitals: Temp Pulse Resp BP Pulse Ox 98.4 F 97 H 20 177/86 99 08/02/20 06:05 08/02/20 06:05 08/02/20 06:05 08/02/20 06:05 08/02/20 06:05 General appearance: Present: no acute distress, well-nourished Results - Labs CBC & Chem 7: 08/01/20 19:36 08/02/20 08:33 Labs: Laboratory Last Values WBC 11.2 K/mm3 (4.5-11.0) H 08/01/20 19:36 RBC 4.26 M/mm3 (3.65-5.03) 08/01/20 19:36 Hgb 12.0 gm/dl (11.8-15.2) 08/01/20 19:36 Hct 36.4 % (35.5-45.6) 08/01/20 19:36 MCV 85 fl (84-94) 08/01/20 19:36 MCH 28 pg (28-32) 08/01/20 19:36 MCHC 33 % (32-34) 08/01/20 19:36 RDW 15.7 % (13.2-15.2) H 08/01/20 19:36 Plt Count 290 K/mm3 (140-440) 08/01/20 19:36 Lymph % (Auto) 18.8 % (13.4-35.0) 08/01/20 19:36 Young % (Auto) 3.9 % (0.0-7.3) 08/01/20 19:36 Eos % (Auto) 0.1 % (0.0-4.3) 08/01/20 19:36 Baso % (Auto) 0.5 % (0.0-1.8) 08/01/20 19:36 Lymph # (Auto) 2.1 K/mm3 (1.2-5.4) 08/01/20 19:36 Young # (Auto) 0.4 K/mm3 (0.0-0.8) 08/01/20 19:36 Eos # (Auto) 0.0 K/mm3 (0.0-0.4) 08/01/20 19:36 Baso # (Auto) 0.1 K/mm3 (0.0-0.1) 08/01/20 19:36 Seg Neutrophils % 76.7 % (40.0-70.0) H 08/01/20 19:36 Seg Neutrophils # 8.6 K/mm3 (1.8-7.7) H 08/01/20 19:36 PT 13.1 Sec. (12.2-14.9) 08/01/20 21:49 INR 1.01 (0.87-1.13) 08/01/20 21:49 APTT 28.0 Sec. (24.2-36.6) 08/01/20 21:49 VBG pH 7.385 (7.320-7.420) 08/01/20 21:49 Sodium 136 mmol/L (137-145) L 08/02/20 08:33 Potassium 4.3 mmol/L (3.6-5.0) 08/02/20 08:33 Chloride 102.9 mmol/L (98-107) 08/02/20 08:33 Carbon Dioxide 17 mmol/L (22-30) L 08/02/20 08:33 Anion Gap 20 mmol/L 08/02/20 08:33 BUN 65 mg/dL (9-20) H 08/02/20 08:33 Creatinine 10.0 mg/dL (0.8-1.3) H 08/02/20 08:33 Estimated GFR 7 ml/min 08/02/20 08:33 BUN/Creatinine Ratio 7 % 08/02/20 08:33 Glucose 120 mg/dL (75-100) H 08/02/20 08:33 POC Glucose 114 mg/dL (70-105) H 08/02/20 07:51 Lactic Acid 1.30 mmol/L (0.7-2.0) 08/01/20 21:49 Calcium 8.8 mg/dL (8.4-10.2) 08/02/20 08:33 Magnesium 2.00 mg/dL (1.7-2.3) 08/01/20 21:49 Total Bilirubin 0.30 mg/dL (0.1-1.2) 08/01/20 19:36 AST 22 units/L (5-40) 08/01/20 19:36 ALT 43 units/L (7-56) 08/01/20 19:36 Alkaline Phosphatase 158 units/L (35-129) H 08/01/20 19:36 Total Protein 7.7 g/dL (6.3-8.2) 08/01/20 19:36 Albumin 4.3 g/dL (3.9-5) 08/01/20 19:36 Albumin/Globulin Ratio 1.3 % 08/01/20 19:36 Lipase 20 units/L (13-60) 08/01/20 19:36 Urine Color Straw (Yellow) 08/02/20 03:28 Urine Turbidity Clear (Clear) 08/02/20 03:28 Urine pH 5.0 (5.0-7.0) 08/02/20 03:28 Ur Specific [place] 1.007 (1.003-1.030) 08/02/20 03:28 Urine Protein >500 mg/dL (Negative) 08/02/20 03:28 Urine Glucose (UA) >=500 mg/dL (Negative) 08/02/20 03:28 Urine Ketones Neg mg/dL (Negative) 08/02/20 03:28 Urine Blood Sm (Negative) 08/02/20 03:28 Urine Nitrite Neg (Negative) 08/02/20 03:28 Urine Bilirubin Neg (Negative) 08/02/20 03:28 Urine Urobilinogen < 2.0 mg/dL (<2.0) 08/02/20 03:28 Ur Leukocyte Esterase Neg (Negative) 08/02/20 03:28 Urine WBC (Auto) 2.0 /HPF (0.0-6.0) 08/02/20 03:28 Urine RBC (Auto) 2.0 /HPF (0.0-6.0) 08/02/20 03:28 Urine Bacteria (Auto) 1+ /HPF (Negative) 08/02/20 03:28 Urine Yeast (Budding) 1+ /HPF 08/02/20 03:28 Stoner/IV: Voiding Method Toilet Active Medications - Current Medications Current Medications: Generic Name Dose Route Start Last Admin Trade Name Freq PRN Reason Stop Dose Admin Acetaminophen 650 mg 05/21/21 01:56 Acetaminophen 325 Mg Tab PO Q4H PRN Pain MILD(1-3)/Fever >100.5/DIA Albuterol/Ipratropium 1 ampul 08/02/20 02:00 08/02/20 06:50 Ipratropium/Albuterol Sulfate 3 Ml Ampul.Neb IH Not Given Q6HRT JUAN DANIEL Calcitriol 0.25 mcg 08/02/20 10:00 08/02/20 10:02 Calcitriol 0.25 Mcg Cap PO 0.25 mcg QDAY JUAN DANIEL Administration Carvedilol 37.5 mg 08/02/20 10:00 08/02/20 10:02 Carvedilol 12.5 Mg Tab PO 37.5 mg QAM JUAN DANIEL Administration Carvedilol 25 mg 08/02/20 22:00 Carvedilol 25 Mg Tab PO QHS JUAN DANIEL Dextrose 50 ml 08/02/20 01:56 Dextrose 50% In Water (25gm) 50 Ml Syringe IV Q30MIN PRN Hypoglycemia Protocol Famotidine 20 mg 08/02/20 10:00 08/02/20 10:02 Famotidine 20 Mg Tab PO 20 mg BID JUAN DANIEL Administration Ferrous Sulfate 325 mg 08/02/20 10:00 08/02/20 10:02 Ferrous Sulfate 325 Mg Tab PO 325 mg QDAY JUAN DANIEL Administration Hydralazine HCl 10 mg 08/02/20 03:00 08/02/20 06:17 Hydralazine 20 Mg/1 Ml Inj IV 10 mg Q6HR PRN Administration Blood Pressure Sodium Chloride 1,000 mls @ 100 mls/hr 08/02/20 02:00 08/02/20 03:21 Nacl 0.45% 1000 Ml IV 100 mls/hr DIRECT JUAN DANIEL Administration Insulin Human Lispro 0 unit 08/02/20 07:30 08/02/20 09:31 Insulin Lispro 100 Unit/Ml SUB-Q Not Given ACHS [facility] Protocol Metoclopramide HCl 5 mg 08/02/20 02:14 08/02/20 10:02 Metoclopramide 10 Mg Tab PO 5 mg QID PRN Administration Nausea Metoclopramide HCl 5 mg 08/02/20 02:15 Metoclopramide 10 Mg/2 Ml Inj IV Q6H PRN Nausea And Vomiting Morphine Sulfate 2 mg 08/02/20 10:00 08/02/20 10:03 Morphine 2 Mg/1 Ml Inj IV 2 mg Q4H PRN Administration Pain, Moderate (4-6) Nifedipine 90 mg 08/02/20 10:00 08/02/20 10:02 Nifedipine Xl 90 Mg Tab PO 90 mg QDAY JUAN DANIEL Administration Ondansetron HCl 4 mg 08/02/20 01:56 08/02/20 07:45 Ondansetron 4 Mg/2 Ml Inj IV 4 mg Q8H PRN Administration Nausea And Vomiting Phenol 1 spray 08/02/20 01:54 Phenol 1.4% 177 Ml Bottle MM PRN PRN Sore Throat Simethicone 80 mg 08/02/20 10:00 08/02/20 10:03 Simethicone 80 Mg Chew Tab PO 80 mg Q6H PRN Administration Gas pain Sodium Chloride 10 ml 08/02/20 10:00 08/02/20 10:03 Sodium Chloride 0.9% 10 Ml Flush Syringe IV 10 ml BID JUAN DANIEL Administration Sodium Chloride 10 ml 08/02/20 01:56 Sodium Chloride 0.9% 10 Ml Flush Syringe IV PRN PRN LINE FLUSH
[2020-08-02] MEDS: HYDROmorphone 1 MG/1 ML INJ IV PRN ×4 (11:50→22:41)
--- NOTE | 2020-08-02 13:54 | Consultation ---
History of Present Illness - Reason for Consult Consult date: 08/02/20 acute renal failure - History of Present Illness Mr. Oates is a 44yo who presents to the ED with nausea, vomiting and abdominal pain. He reports a history of CKD followed by [facility]. Mr. Oates reports that his last visit was appx 6 months ago. At that time, he reports that he was advised that he has stage V CKD. He reports intermittent nausea, vomiting, metallic taste. He also reports loose stools - non melanotic, no BRBPR. He denies SOB, HARRISON, edema. Past History Past Medical History: diabetes, hypertension, renal failure Medications and Allergies Allergies Allergy/AdvReac Type Severity Reaction Status Date / Time No Known Allergies Allergy Unverified 03/18/13 16:02 Home Medications Medication Instructions Recorded Confirmed Last Taken Type AtorvaSTATin [Lipitor] 40 mg PO QHS 05/05/19 08/02/20 Unknown History NIFEdipine XL [Procardia Xl] 90 mg PO QDAY #90 tablet 05/07/19 08/02/20 Unknown Rx carvediloL [Coreg] 25 mg PO QHS #90 tablet 05/07/19 08/02/20 Unknown Rx carvediloL [Coreg] 37.5 mg PO QAM #90 tablet 05/07/19 08/02/20 Unknown Rx Insulin Lispro [Humalog] 100 unit SQ BID 08/02/20 08/02/20 Unknown History labetaloL [Labetalol 100mg TAB] 100 mg PO BID 08/02/20 08/02/20 Unknown History Active Meds: Active Medications Acetaminophen (Acetaminophen 325 Mg Tab) 650 mg PO Q4H PRN PRN Reason: Pain MILD(1-3)/Fever >100.5/DIA Albuterol/Ipratropium (Ipratropium/Albuterol Sulfate 3 Ml Ampul.Neb) 1 ampul IH Q6HRT [facility] Last Admin: 08/02/20 06:50 Dose: Not Given Documented by: Calcitriol (Calcitriol 0.25 Mcg Cap) 0.25 mcg PO QDAY [facility] Last Admin: 08/02/20 10:02 Dose: 0.25 mcg Documented by: Carvedilol (Carvedilol 12.5 Mg Tab) 37.5 mg PO QAM [facility] Last Admin: 08/02/20 10:02 Dose: 37.5 mg Documented by: Carvedilol (Carvedilol 25 Mg Tab) 25 mg PO QHS [facility] Dextrose (Dextrose 50% In Water (25gm) 50 Ml Syringe) 50 ml IV Q30MIN PRN; Protocol PRN Reason: Hypoglycemia Famotidine (Famotidine 20 Mg Tab) 20 mg PO BID [facility] Last Admin: 08/02/20 10:02 Dose: 20 mg Documented by: Ferrous Sulfate (Ferrous Sulfate 325 Mg Tab) 325 mg PO QDAY [facility] Last Admin: 08/02/20 10:02 Dose: 325 mg Documented by: Hydralazine HCl (Hydralazine 20 Mg/1 Ml Inj) 10 mg IV Q6HR PRN PRN Reason: Blood Pressure Last Admin: 08/02/20 06:17 Dose: 10 mg Documented by: Hydromorphone HCl (Hydromorphone 1 Mg/1 Ml Inj) 1 mg IV Q3H PRN PRN Reason: Pain , Severe (7-10) Last Admin: 08/02/20 11:50 Dose: 1 mg Documented by: Sodium Chloride (Nacl 0.45% 1000 Ml) 1,000 mls @ 100 mls/hr IV DIRECT [facility] Last Admin: 08/02/20 11:51 Dose: 100 mls/hr Documented by: Insulin Human Lispro (Insulin Lispro 100 Unit/Ml) 0 unit SUB-Q ACHS [facility]; Protocol Last Admin: 08/02/20 13:33 Dose: Not Given Documented by: Metoclopramide HCl (Metoclopramide 10 Mg Tab) 5 mg PO QID PRN PRN Reason: Nausea Last Admin: 08/02/20 10:02 Dose: 5 mg Documented by: Metoclopramide HCl (Metoclopramide 10 Mg/2 Ml Inj) 5 mg IV Q6H PRN PRN Reason: Nausea And Vomiting Nifedipine (Nifedipine Xl 90 Mg Tab) 90 mg PO QDAY [facility] Last Admin: 08/02/20 10:02 Dose: 90 mg Documented by: Ondansetron HCl (Ondansetron 4 Mg/2 Ml Inj) 4 mg IV Q8H PRN PRN Reason: Nausea And Vomiting Last Admin: 08/02/20 07:45 Dose: 4 mg Documented by: Phenol (Phenol 1.4% 177 Ml Bottle) 1 spray MM PRN PRN PRN Reason: Sore Throat Simethicone (Simethicone 80 Mg Chew Tab) 80 mg PO Q6H PRN PRN Reason: Gas pain Last Admin: 08/02/20 10:03 Dose: 80 mg Documented by: Sodium Chloride (Sodium Chloride 0.9% 10 Ml Flush Syringe) 10 ml IV BID JUAN DANIEL Last Admin: 08/02/20 10:03 Dose: 10 ml Documented by: Sodium Chloride (Sodium Chloride 0.9% 10 Ml Flush Syringe) 10 ml IV PRN PRN PRN Reason: LINE FLUSH Review of Systems All systems: negative Exam - Vital Signs Vital signs: Vital Signs Temp Pulse Resp BP Pulse Ox 98.3 F 114 H 18 164/101 100 08/01/20 19:26 08/01/20 19:26 08/01/20 19:26 08/01/20 19:26 08/01/20 19:26 - General Appearance General appearance: well-developed, well-nourished EENT: ATNC Respiratory: Clear to Ascultation Heart: regular, S1S2 Gastrointestinal: Present: normal. Absent: tenderness, distended Integumentary: no rash, warm and dry Neurologic: no focal deficit, alert and oriented x3 Psychiatric: cooperative Results - Lab Results 08/01/20 19:36 08/02/20 08:33 Most recent lab results Calcium 8.8 mg/dL (8.4-10.2) 08/02/20 08:33 Magnesium 2.00 mg/dL (1.7-2.3) 08/01/20 21:49 Assessment and Plan Impression: * Stage IV CKD w/ progression to ESRD * Uremia * Metabolic acidosis * Hypertension * Type II diabetes mellitus Plan: * Lengthy discussion w/ patient. Informed that symptoms are c/w uremia and initiation of hemodialysis is recommended. Patient voiced understanding. * Continue IVF for hydration - change to NS * Have consulted vascular surgery for permcath insertion on Wednesday * Will order hepatitis panel and CXR for outpatient HD clinic placement; will also need COVID test prior to clinic admission * Continue antiHTN medications * Dose medications for renal function * AM labs
--- NOTE | 2020-08-02 15:09 | Event Note ---
Date: 08/02/20 pt see and examined, full consult dictated - pt h/o htn, dm, renal diseases presented w/ UGI symptoms, ct benign, labs show high bun/cr - suspect most symptoms due to uremia vss p.e.: nad abd: soft - renal input noted - advance diet - PPI qd, antiemetics prn - no plans to scope - when tolerating po ok to dc from GI standpoint
--- NOTE | 2020-08-02 15:36 | XRay Report ---
CHEST 2 VIEWS INDICATION: outpatient HD clinic placement. COMPARISON: 05/05/2019 FINDINGS: Support devices: None. Heart: Within normal limits. Lungs/pleura: No acute air space or interstitial disease. No pneumothorax. Additional findings: None. IMPRESSION: Normal chest x-ray Signer Name: Joseph Garcia Jr, MD Signed: 08/02/2020 3:32 PM Workstation Name: [id number]
[2020-08-02] MEDS: SODIUM CHLORIDE 0.9% 1000 ML 1,000 ML IV SCH (15:43)
[2020-08-02 16:56] LABS: Hepatitis B Surface Antigen Non-Reactive (Negative); Hepatitis C Virus Antibody Non-Reactive (NonReactive)
[2020-08-02] MEDS: carvediloL 25 MG TAB PO SCH (22:48)
--- NOTE | 2020-08-03 02:00 | Consultation ---
DATE OF CONSULTATION: 08/02/2020 REFERRING PHYSICIAN: Dr. Tho Ortiz. INDICATIONS: Nausea, vomiting, abdominal pain. HISTORY OF PRESENT ILLNESS: The patient is a 44-year-old black male with history of diabetes, hypertension, renal disease, presents for GI symptoms. The patient reports 10/10 epigastric left upper quadrant pain. The patient reports that it has been ongoing for one week. The patient reports also some nausea and vomiting. Reports no fever or chills. The patient reports no NSAIDs or aspirin use. The patient reports he has been told by his low heel builder at [place] 6 months ago that he has stage IV kidney disease. The patient subsequently came to the emergency room where he was noted to have a fairly benign CT scan, but noted to have a very high BUN and creatinine. The patient subsequently was admitted and GI consulted. The patient denies any other specific complaints. PAST MEDICAL HISTORY: 1. Hypertension. 2. Diabetes. 3. Kidney failure. MEDICATIONS: Reviewed and updated in chart. ALLERGIES: No known drug allergies. SOCIAL HISTORY: Denies significant alcohol, tobacco or drug abuse. FAMILY HISTORY: Negative for colon cancer, IBD, or liver disease. REVIEW OF SYSTEMS: GENERAL: Positive weakness. HEENT: Denies visual complaints or tinnitus. PULMONARY: Denies shortness of breath, chest pain. GASTROINTESTINAL: Reports nausea, vomiting, epigastric pain. All points of 13-point review of system otherwise negative. PHYSICAL EXAMINATION: VITAL SIGNS: Temperature 98.4, pulse 97, respirations 20, blood pressure 177/90. GENERAL: Fairly nourished black male, in mild distress. HEENT: Pupils round and reactive. PULMONARY: Clear to auscultation bilaterally. CARDIOVASCULAR: Regular rhythm. Normal S1, S2. ABDOMEN: Bowel sounds positive. SKIN: No obvious rashes. LABORATORY DATA: Pertinent for white count of 11.2, hemoglobin and hematocrit of 12 and 36.4, platelet count of 290. Coags within normal limits. Chem-7: Sodium of 136, potassium 4.3, chloride 103, CO2 of 17, BUN and creatinine of [address] scan abdomen and pelvis without contrast showed no significant GI pathology. ASSESSMENT: A 44-year-old black male with history of hypertension, diabetes, now presents with abdominal pain, nausea, vomiting with noted very high BUN and creatinine. The patient has signs of uremia. The patient reports overall he is starting to feel better. My suspicion is most of the patient's symptoms are due to uremia. I have noted that the patient may require dialysis. PLAN: 1. Review of CT scan. 2. PPI daily. 3. Agree with clear liquid diet and advance as tolerated. 4. No plans for EGD at this time. 5. When tolerating p.o. and cleared by nephrology, okay to discharge from GI standpoint. 6. We will follow for now. TID: [id number] RECEIPT: [id number] CAMILLA/KOLE/BRENDON MTDLaura
[2020-08-03] MEDS: IPRATROPIUM/ALBUTEROL SULFATE 3 ML AMPUL.NEB IH SCH ×4 (03:47→19:21)
[2020-08-03] MEDS: SODIUM CHLORIDE 0.9% 1000 ML 1,000 ML IV SCH ×3 (04:42→22:53)
[2020-08-03 06:12] LABS: Basophils # (Auto) 0.1 K/mm3 (0.0-0.1); Basophils % (Auto) 0.7 % (0.0-1.8); Eosinophils # (Auto) 0.1 K/mm3 (0.0-0.4); Eosinophils % (Auto) 0.5 % (0.0-4.3); Hematocrit 31.6 % (35.5-45.6); Hemoglobin 10.3 gm/dl (11.8-15.2); Lymphocytes # (Auto) 4.1 K/mm3 (1.2-5.4); Lymphocytes % (Auto) 41.9 % (13.4-35.0); Mean Corpuscular HGB Conc 33 % (32-34); Mean Corpuscular Volume 87 fl (84-94); Monocytes # (Auto) 0.6 K/mm3 (0.0-0.8); Monocytes % (Auto) 5.8 % (0.0-7.3); Platelet Count 247 K/mm3 (140-440); Red Blood Count 3.65 M/mm3 (3.65-5.03); Red Cell Distribution Width 15.5 % (13.2-15.2)
[2020-08-03 06:29] LABS: Calcium 8.7 mg/dL (8.4-10.2)
--- NOTE | 2020-08-03 07:36 | Progress Note ---
Assessment and Plan Assessment and plan: (1) stage V CKD Current Visit: Yes Status: Acute Qualifiers: Acute renal failure type: unspecified Chronic kidney disease stage: unspecified stage Qualified Code(s): N17.9 - Acute kidney failure, unspecified; N18.9 - Chronic kidney disease, unspecified Plan to address problem: Admit the patient to the medical telemetry. Put the patient on 1800 kcal ADA renal diet. Half-normal saline at the rate of 100 cc/h. We will consult nephrology for further evaluation and treatment. Avoid nephrotoxic drug. Recheck BMP in the morning (2) Intractable vomiting with nausea Current Visit: Yes Status: Acute Plan to address problem: Pepcid 20 mg p.o. twice daily. Zofran 4 mg IV every 6 hours as needed. Reglan 10 mg IV every 6 hours as needed. If needed will consult GI (3) Hypertension Current Visit: Yes Status: Acute Plan to address problem: Coreg 37.5 mg p.o. every morning and Coreg 25 mg p.o. nightly. Hydralazine 10 mg IV every 6 hours as needed. Nifedipine XL 90 mg p.o. daily. We will monitor the blood pressure closely (4) Abdominal pain Current Visit: Yes Status: Acute Qualifiers: Abdominal location: generalized Qualified Code(s): R10.84 - Generalized abdominal pain Plan to address problem: Tylenol 650 mg p.o. every 6 hours as needed. Pepcid 20 mg p.o. twice daily. Zofran 4 mg IV every 6 hours as needed. If needed will consult GI (5) Diabetes mellitus Current Visit: No Status: Chronic Plan to address problem: We will put the patient on 1800 kcal ADA diet. Humalog sliding scale Accu-Chek before meals and at bedtime with moderate dose coverage. Will consult for diabetic education. Recheck BMP in the morning (6) DVT prophylaxis Current Visit: Yes Status: Acute Plan to address problem: Heparin 5000 units subcu every 8 hours for DVT prophylaxis. Pepcid 20 mg p.o. twice daily for GI prophylaxis. Patient is a full code 08/03/2020 -Patient was seen by nephrology and patient agreed with dialysis and will have permacath placement on Wednesday. Nephrology consult appreciated. -Abdominal pain and nausea is due to uremia, will continue symptomatic management -Diabetes mellitus uncontrolled, will check A1c, continue sliding scale and added 10 units of Lantus. A1c is 7.7 -Hypertension controlled. -Patient was evaluated by GI and said the abdominal pain is due to uremia and signed off. History Interval history: Patient was seen and evaluated this morning. Patient's abdominal pain is getting better Patient tolerated diet Hospitalist Physical - Physical exam Narrative exam: Not in cardiopulmonary distress. The patient appeared well nourished and normally developed. Vital signs as documented. Head exam is unremarkable. No scleral icterus . Neck is without jugular venous distension, thyromegaly, or carotid bruits. Lungs are clear to auscultation. Cardiac exam reveals regular rate and Rhythm. Abdominal exam reveals normal bowel sounds, nontender, no organomegaly. Extremities are nonedematous and both femoral and pedal pulses are normal. [employer]: Alert and oriented 3. No focal weakness. - Constitutional Vitals: Temp Pulse Resp BP Pulse Ox 97.8 F 81 18 142/74 98 08/03/20 05:00 08/03/20 05:00 08/03/20 05:00 08/03/20 05:00 08/03/20 05:00 General appearance: Present: no acute distress, well-nourished Results - Labs CBC & Chem 7: 08/03/20 05:09 08/03/20 05:09 Labs: Laboratory Last Values WBC 9.8 K/mm3 (4.5-11.0) 08/03/20 05:09 RBC 3.65 M/mm3 (3.65-5.03) 08/03/20 05:09 Hgb 10.3 gm/dl (11.8-15.2) L 08/03/20 05:09 Hct 31.6 % (35.5-45.6) L 08/03/20 05:09 MCV 87 fl (84-94) 08/03/20 05:09 MCH 28 pg (28-32) 08/03/20 05:09 MCHC 33 % (32-34) 08/03/20 05:09 RDW 15.5 % (13.2-15.2) H 08/03/20 05:09 Plt Count 247 K/mm3 (140-440) 08/03/20 05:09 Lymph % (Auto) 41.9 % (13.4-35.0) H 08/03/20 05:09 [place] % (Auto) 5.8 % (0.0-7.3) 08/03/20 05:09 Eos % (Auto) 0.5 % (0.0-4.3) 08/03/20 05:09 Baso % (Auto) 0.7 % (0.0-1.8) 08/03/20 05:09 Lymph # (Auto) 4.1 K/mm3 (1.2-5.4) 08/03/20 05:09 [place] # (Auto) 0.6 K/mm3 (0.0-0.8) 08/03/20 05:09 Eos # (Auto) 0.1 K/mm3 (0.0-0.4) 08/03/20 05:09 Baso # (Auto) 0.1 K/mm3 (0.0-0.1) 08/03/20 05:09 Seg Neutrophils % 51.1 % (40.0-70.0) 08/03/20 05:09 Seg Neutrophils # 5.0 K/mm3 (1.8-7.7) 08/03/20 05:09 PT 13.1 Sec. (12.2-14.9) 08/01/20 21:49 INR 1.01 (0.87-1.13) 08/01/20 21:49 APTT 28.0 Sec. (24.2-36.6) 08/01/20 21:49 VBG pH 7.385 (7.320-7.420) 08/01/20 21:49 Sodium 131 mmol/L (137-145) L 08/03/20 05:09 Potassium 4.5 mmol/L (3.6-5.0) 08/03/20 05:09 Chloride 100.2 mmol/L (98-107) 08/03/20 05:09 Carbon Dioxide 13 mmol/L (22-30) L 08/03/20 05:09 Anion Gap 22 mmol/L 08/03/20 05:09 BUN 61 mg/dL (9-20) H 08/03/20 05:09 Creatinine 9.7 mg/dL (0.8-1.3) H 08/03/20 05:09 Estimated GFR 7 ml/min 08/03/20 05:09 BUN/Creatinine Ratio 6 % 08/03/20 05:09 Glucose 221 mg/dL (75-100) H 08/03/20 05:09 POC Glucose 190 mg/dL (70-105) H 08/02/20 21:42 Lactic Acid 1.30 mmol/L (0.7-2.0) 08/01/20 21:49 Calcium 8.7 mg/dL (8.4-10.2) 08/03/20 05:09 Magnesium 2.00 mg/dL (1.7-2.3) 08/01/20 21:49 Total Bilirubin 0.30 mg/dL (0.1-1.2) 08/01/20 19:36 AST 22 units/L (5-40) 08/01/20 19:36 ALT 43 units/L (7-56) 08/01/20 19:36 Alkaline Phosphatase 158 units/L (35-129) H 08/01/20 19:36 Total Protein 7.7 g/dL (6.3-8.2) 08/01/20 19:36 Albumin 4.3 g/dL (3.9-5) 08/01/20 19:36 Albumin/Globulin Ratio 1.3 % 08/01/20 19:36 Lipase 20 units/L (13-60) 08/01/20 19:36 Urine Color Straw (Yellow) 08/02/20 03:28 Urine Turbidity Clear (Clear) 08/02/20 03:28 Urine pH 5.0 (5.0-7.0) 08/02/20 03:28 Ur Specific [place] 1.007 (1.003-1.030) 08/02/20 03:28 Urine Protein >500 mg/dL (Negative) 08/02/20 03:28 Urine Glucose (UA) >=500 mg/dL (Negative) 08/02/20 03:28 Urine Ketones Neg mg/dL (Negative) 08/02/20 03:28 Urine Blood Sm (Negative) 08/02/20 03:28 Urine Nitrite Neg (Negative) 08/02/20 03:28 Urine Bilirubin Neg (Negative) 08/02/20 03:28 Urine Urobilinogen < 2.0 mg/dL (<2.0) 08/02/20 03:28 Ur Leukocyte Esterase Neg (Negative) 08/02/20 03:28 Urine WBC (Auto) 2.0 /HPF (0.0-6.0) 08/02/20 03:28 Urine RBC (Auto) 2.0 /HPF (0.0-6.0) 08/02/20 03:28 Urine Bacteria (Auto) 1+ /HPF (Negative) 08/02/20 03:28 Urine Yeast (Budding) 1+ /HPF 08/02/20 03:28 Hepatitis A IgM Ab Non-reactive (NonReactive) 08/02/20 15:25 Hep Bs Antigen Non-reactive (Negative) 08/02/20 15:25 Hep B Core IgM Ab Non-reactive (NonReactive) 08/02/20 15:25 Hepatitis C Antibody Non-reactive (NonReactive) 08/02/20 15:25 [place]/IV: Voiding Method Toilet Active Medications - Current Medications Current Medications: Generic Name Dose Route Start Last Admin Trade Name Freq PRN Reason Stop Dose Admin Acetaminophen 650 mg 08/02/20 01:56 Acetaminophen 325 Mg Tab PO Q4H PRN Pain MILD(1-3)/Fever >100.5/DIA Albuterol/Ipratropium 1 ampul 08/02/20 02:00 08/03/20 03:47 Ipratropium/Albuterol Sulfate 3 Ml Ampul.Neb IH Not Given Q6HRT JUAN DANIEL Calcitriol 0.25 mcg 08/02/20 10:00 08/02/20 10:02 Calcitriol 0.25 Mcg Cap PO 0.25 mcg QDAY JUAN DANIEL Administration Carvedilol 37.5 mg 08/02/20 10:00 08/02/20 10:02 Carvedilol 12.5 Mg Tab PO 37.5 mg QAM JUAN DANIEL Administration Carvedilol 25 mg 08/02/20 22:00 08/02/20 22:48 Carvedilol 25 Mg Tab PO 25 mg QHS JUAN DANIEL Administration Dextrose 50 ml 08/02/20 01:56 Dextrose 50% In Water (25gm) 50 Ml Syringe IV Q30MIN PRN Hypoglycemia Protocol Famotidine 20 mg 08/02/20 10:00 08/02/20 22:42 Famotidine 20 Mg Tab PO 20 mg BID JUAN DANIEL Administration Ferrous Sulfate 325 mg 08/02/20 10:00 08/02/20 10:02 Ferrous Sulfate 325 Mg Tab PO 325 mg QDAY JUAN DANIEL Administration Hydralazine HCl 10 mg 08/02/20 03:00 08/02/20 06:17 Hydralazine 20 Mg/1 Ml Inj IV 10 mg Q6HR PRN Administration Blood Pressure Hydromorphone HCl 1 mg 08/02/20 11:24 08/02/20 22:41 Hydromorphone 1 Mg/1 Ml Inj IV 1 mg Q3H PRN Administration Pain , Severe (7-10) Sodium Chloride 1,000 mls @ 100 mls/hr 08/02/20 14:45 08/03/20 04:42 Nacl 0.9% 1000 Ml IV 100 mls/hr DIRECT JUAN DANIEL Administration Insulin Human Lispro 0 unit 08/02/20 07:30 08/02/20 22:36 Insulin Lispro 100 Unit/Ml SUB-Q 2 unit ACHS JUAN DANIEL Administration Protocol Metoclopramide HCl 5 mg 08/02/20 02:14 08/02/20 10:02 Metoclopramide 10 Mg Tab PO 5 mg QID PRN Administration Nausea Metoclopramide HCl 5 mg 08/02/20 02:15 Metoclopramide 10 Mg/2 Ml Inj IV Q6H PRN Nausea And Vomiting Nifedipine 90 mg 08/02/20 10:00 08/02/20 10:02 Nifedipine Xl 90 Mg Tab PO 90 mg QDAY JUAN DANIEL Administration Ondansetron HCl 4 mg 08/02/20 17:17 08/02/20 18:11 Ondansetron 4 Mg/2 Ml Inj IV 4 mg Q4H PRN Administration Nausea And Vomiting Phenol 1 spray 08/02/20 01:54 Phenol 1.4% 177 Ml Bottle MM PRN PRN Sore Throat Simethicone 80 mg 08/02/20 10:00 08/02/20 10:03 Simethicone 80 Mg Chew Tab PO 80 mg Q6H PRN Administration Gas pain Sodium Chloride 10 ml 08/02/20 10:00 08/02/20 22:24 Sodium Chloride 0.9% 10 Ml Flush Syringe IV 10 ml BID JUAN DANIEL Administration Sodium Chloride 10 ml 08/02/20 01:56 Sodium Chloride 0.9% 10 Ml Flush Syringe IV PRN PRN LINE FLUSH Nutrition/Malnutrition Assess - Dietary Evaluation Nutrition/Malnutrition Findings: Nutrition Notes Start: 08/02/20 10:53 Freq: Status: Active Protocol: Document 08/02/20 10:53 AL (Rec: 08/02/20 11:05 AL [id number]) Co-Sign 08/02/20 10:53 LP Nutrition Notes Need for Assessment generated from: MD Order,Education Initial or Follow up Assessment Current Diagnosis CKD (stage V CKD),Diabetes, Hypertension Other Pertinent Diagnosis Intractable N/V, abd pain Current Diet Cardiac/Consistent Carbohydrate Renal Labs/Tests BUN 61 Cr 10 Pertinent Medications Zofran .45 NS 100 ml/hr Height 6 ft 1 in Weight 65.9 kg [place] Body Weight (kg) 83.63 BMI 19.1 Weight change and time frame Pt wt in chart is an error. Pt wt is 145 lbs, not 145 kg. Pt reports wt loss of 5% (9 lbs) in past 2-3 days. Weight Status Appropriate Subjective/Other Information MD order for diet education. Pt reports wt. loss of 8-9 lbs in 2 days. He is afraid to eat d/t N/V. Breakfast eaten at <25%. Pt. requests ONS due to poor appetite. Diet education on N/V, CHO Counting , and Heart Health well received by patient. Percent of energy/protein needs met: 25%/29% Burn Absent Trauma Absent GI Symptoms Nausea,Vomiting Food Allergy No Current % PO Negligible Minimum of two criteria Yes Energy Intake (severe) < or equal to 50% Estimated Energy Requirement > or equal to 5 days Interpretation of Weight Loss (severe) >2% in 1 week #3 Nutrition Diagnosis Inadequate oral intake Etiology Loss of appetite, N/V As Evidenced by Signs and Symptoms pt meets 25%/29% estimated energy/protein needs PO #2 Nutrition Diagnosis Malnutrition Etiology N/V and loss of appetite As Evidenced by Signs and Symptoms Pt consumed <50% of estimated energy needs and has wt loss of 5% in 2-3 days. #1 Nutrition Diagnosis Food and nutrition-related knowledge deficit Etiology DM, N/V As Evidenced by Signs and Symptoms pt. did not know about nutrition therapy for DM and N /V. Is patient on ventilator? No Is Patient Ambulatory and/or Out of Bed Yes REE-([place]-St. Jeor-ambulatory/OOB) [ 2069.744 [id number]] Calculation Used for Recommendations [facility] Additional Notes Pro: 79-99 g (1.2-1.5 g/kg) Fluid: 1 ml/kcal Nutrition Intervention Change Diet Order: Continue current order Add Supplement/Snack (indicate name/kcal Glucerna [place] & Vanilla /protein ) BID Provides kCal: 440 Provides Protein (gm) 20 Teaching Recipient Patient Learning Readiness Good Teaching Methods Discussion,Handout Response to Teaching Return demonstration,Verbalize understanding Education Handouts Provided Carb Counting for People with Diabetes Nausea/Vomiting Nutrition Therapy Barriers to Learning No Barriers RD phone number provided Yes Patient aware of follow up options Yes Goal #1 Meet 75% of estimated energy needs via diet & ONS Goal #2 ONS tolerance. Goal #3 Wt gain/maintenence Anticipated Discharge Needs: Renal/Consistenc CHO diet Follow-Up By: 08/05/20 Additional Comments F/U for intakes and ONS tolerance.
[2020-08-03] MEDS ORDERED: INSULIN GLARGINE 100 UNITS/ML SUB-Q ONE (08:00)
[2020-08-03] MEDS: INSULIN LISPRO 100 UNIT/ML SUB-Q SCH ×4 (08:49→22:40)
[2020-08-03] MEDS: HYDROmorphone 1 MG/1 ML INJ IV PRN ×4 (08:55→22:41)
[2020-08-03] MEDS: carvediloL 12.5 MG TAB PO SCH (10:20)
[2020-08-03] MEDS: NIFEdipine XL 90 MG TAB PO SCH (10:21)
[2020-08-03] MEDS: FERROUS SULFATE 325 MG TAB PO SCH (10:21)
[2020-08-03] MEDS: CALCITRIOL 0.25 MCG CAP PO SCH (10:21)
[2020-08-03] MEDS: FAMOTIDINE 20 MG TAB PO SCH ×2 (10:21→22:39)
--- NOTE | 2020-08-03 12:55 | Progress Note ---
Assessment and Plan Impression: * Stage IV CKD w/ progression to ESRD * Uremia * Metabolic acidosis * Hypertension * Type II diabetes mellitus Plan: * Renal function unimproved. No acute indication for renal replacement therapy. * Continue IVF for hydration * Start NaBicarb TID * Have consulted vascular surgery for permcath insertion on Wednesday * Hepatitis panel and CXR ordered for outpatient HD clinic placement; will also need COVID test prior to clinic admission * GI recommendations noted * Continue antiHTN medications * Dose medications for renal function * AM labs Subjective Date of service: 08/03/20 Interval history: Patient reports he is feeling better today. Denies nausea/vomiting. Tolerating po. Appetite improved. Objective - Vital Signs Vital signs: Vital Signs - 12hr 08/03/20 08/03/20 08/03/20 05:00 09:16 09:20 Temperature 97.8 F Pulse Rate 81 Pulse Rate [ 96 H Posterior] Respiratory 18 Rate Respiratory 18 Rate [Posterior ] Blood Pressure 142/74 Blood Pressure [Right] O2 Sat by Pulse 98 99 Oximetry 08/03/20 08/03/20 10:20 10:27 Temperature Pulse Rate 96 H Pulse Rate [ Posterior] Respiratory 18 Rate Respiratory Rate [Posterior ] Blood Pressure 147/77 Blood Pressure 149/77 [Right] O2 Sat by Pulse 100 Oximetry - General Appearance General appearance: well-developed, well-nourished EENT: ATNC Respiratory: Present: Clear to Ascultation Cardiology: regular, S1S2 Gastrointestinal: normal, no tenderness, no distended Integumentary: no rash, warm and dry Neurologic: no focal deficit, alert and oriented x3 Psychiatric: cooperative - Lab 08/03/20 05:09 08/03/20 05:09 Most recent lab results Calcium 8.7 mg/dL (8.4-10.2) 08/03/20 05:09 Magnesium 2.00 mg/dL (1.7-2.3) 08/01/20 21:49 Medications & Allergies - Medications Allergies/Adverse Reactions: Allergies No Known Allergies Allergy (Unverified 03/18/13 16:02) Home Medications: Home Medications Medication Instructions Recorded Confirmed Last Taken Type AtorvaSTATin [Lipitor] 40 mg PO QHS 05/05/19 08/02/20 Unknown History NIFEdipine XL [Procardia Xl] 90 mg PO QDAY #90 tablet 05/07/19 08/02/20 Unknown Rx carvediloL [Coreg] 25 mg PO QHS #90 tablet 05/07/19 08/02/20 Unknown Rx carvediloL [Coreg] 37.5 mg PO QAM #90 tablet 05/07/19 08/02/20 Unknown Rx Insulin Lispro [Humalog] 100 unit SQ BID 08/02/20 08/02/20 Unknown History labetaloL [Labetalol 100mg TAB] 100 mg PO BID 08/02/20 08/02/20 Unknown History Active Medications: Generic Name Dose Route Start Last Admin Trade Name Freq PRN Reason Stop Dose Admin Acetaminophen 650 mg 08/02/20 01:56 Acetaminophen 325 Mg Tab PO Q4H PRN Pain MILD(1-3)/Fever >100.5/DIA Albuterol/Ipratropium 1 ampul 08/02/20 02:00 08/03/20 09:07 Ipratropium/Albuterol Sulfate 3 Ml Ampul.Neb IH 1 ampul Q6HRT JUAN DANIEL Administration Calcitriol 0.25 mcg 08/02/20 10:00 08/03/20 10:21 Calcitriol 0.25 Mcg Cap PO 0.25 mcg QDAY JUAN DANIEL Administration Carvedilol 37.5 mg 08/02/20 10:00 08/03/20 10:20 Carvedilol 12.5 Mg Tab PO 37.5 mg QAM JUAN DANIEL Administration Carvedilol 25 mg 08/02/20 22:00 08/02/20 22:48 Carvedilol 25 Mg Tab PO 25 mg QHS JUAN DANIEL Administration Dextrose 50 ml 08/02/20 01:56 Dextrose 50% In Water (25gm) 50 Ml Syringe IV Q30MIN PRN Hypoglycemia Protocol Famotidine 20 mg 08/02/20 10:00 08/03/20 10:21 Famotidine 20 Mg Tab PO 20 mg BID JUAN DANIEL Administration Ferrous Sulfate 325 mg 08/02/20 10:00 08/03/20 10:21 Ferrous Sulfate 325 Mg Tab PO 325 mg QDAY JUAN DANIEL Administration Hydralazine HCl 10 mg 08/02/20 03:00 08/02/20 06:17 Hydralazine 20 Mg/1 Ml Inj IV 10 mg Q6HR PRN Administration Blood Pressure Hydromorphone HCl 1 mg 08/02/20 11:24 08/03/20 08:55 Hydromorphone 1 Mg/1 Ml Inj IV 1 mg Q3H PRN Administration Pain , Severe (7-10) Sodium Chloride 1,000 mls @ 100 mls/hr 08/02/20 14:45 08/03/20 04:42 Nacl 0.9% 1000 Ml IV 100 mls/hr DIRECT JUAN DANIEL Administration Insulin Glargine 10 units 08/03/20 22:00 Insulin Glargine 100 Units/Ml SUB-Q QHS JUAN DANIEL Insulin Human Lispro 0 unit 08/02/20 07:30 08/03/20 12:09 Insulin Lispro 100 Unit/Ml SUB-Q 6 unit ACHS JUAN DANIEL Administration Protocol Metoclopramide HCl 5 mg 08/02/20 02:14 08/02/20 10:02 Metoclopramide 10 Mg Tab PO 5 mg QID PRN Administration Nausea Metoclopramide HCl 5 mg 08/02/20 02:15 Metoclopramide 10 Mg/2 Ml Inj IV Q6H PRN Nausea And Vomiting Nifedipine 90 mg 08/02/20 10:00 08/03/20 10:21 Nifedipine Xl 90 Mg Tab PO 90 mg QDAY JUAN DANIEL Administration Ondansetron HCl 4 mg 08/02/20 17:17 08/02/20 18:11 Ondansetron 4 Mg/2 Ml Inj IV 4 mg Q4H PRN Administration Nausea And Vomiting Phenol 1 spray 08/02/20 01:54 Phenol 1.4% 177 Ml Bottle MM PRN PRN Sore Throat Simethicone 80 mg 08/02/20 10:00 08/02/20 10:03 Simethicone 80 Mg Chew Tab PO 80 mg Q6H PRN Administration Gas pain Sodium Chloride 10 ml 08/02/20 10:00 08/03/20 10:21 Sodium Chloride 0.9% 10 Ml Flush Syringe IV 10 ml BID JUAN DANIEL Administration Sodium Chloride 10 ml 08/02/20 01:56 Sodium Chloride 0.9% 10 Ml Flush Syringe IV PRN PRN LINE FLUSH
[2020-08-03] MEDS: SODIUM BICARBONATE 650 MG TAB PO SCH ×2 (13:22→22:39)
--- NOTE | 2020-08-03 18:08 | Progress Note ---
Assessment and Plan 1. N/V/abd pain -resolved with hydration. Likely due to volume depletion and electrolyte abnormalities. -Given resolution of symptoms, no further GI evaluation planned. We will sign off. Thanks. Subjective Date of service: 08/03/20 Interval history: Pt feeling much better. No abd pain, N/V. Eating a regular diet. Objective - Constitutional Vitals: Vital Signs - 12hr 08/03/20 08/03/20 08/03/20 09:16 09:20 10:20 Pulse Rate 96 H Pulse Rate [ 96 H Posterior] Respiratory Rate Respiratory 18 Rate [Posterior ] Blood Pressure 147/77 Blood Pressure [Right] O2 Sat by Pulse 99 Oximetry 08/03/20 10:27 Pulse Rate Pulse Rate [ Posterior] Respiratory 18 Rate Respiratory Rate [Posterior ] Blood Pressure Blood Pressure 149/77 [Right] O2 Sat by Pulse 100 Oximetry General appearance: Present: no acute distress - EENT Eyes: PERRL, EOM intact ENT: hearing intact - Respiratory Respiratory effort: normal - Gastrointestinal General gastrointestinal: Present: soft, non-tender - Labs CBC & Chem 7: 08/03/20 05:09 08/03/20 05:09 Labs: Abnormal lab results 08/02/20 08/03/20 08/03/20 Range/Units 21:42 05:09 05:09 Hgb 10.3 L (11.8-15.2) gm/dl Hct 31.6 L (35.5-45.6) % RDW 15.5 H (13.2-15.2) % Lymph % (Auto) 41.9 H (13.4-35.0) % Sodium 131 L (137-145) mmol/L Carbon Dioxide 13 L (22-30) mmol/L BUN 61 H (9-20) mg/dL Creatinine 9.7 H (0.8-1.3) mg/dL Glucose 221 H (75-100) mg/dL POC Glucose 190 H (70-105) mg/dL Hemoglobin A1c (4-6) % 08/03/20 08/03/20 08/03/20 Range/Units 05:09 08:09 11:49 Hgb (11.8-15.2) gm/dl Hct (35.5-45.6) % RDW (13.2-15.2) % Lymph % (Auto) (13.4-35.0) % Sodium (137-145) mmol/L Carbon Dioxide (22-30) mmol/L BUN (9-20) mg/dL Creatinine (0.8-1.3) mg/dL Glucose (75-100) mg/dL POC Glucose 283 H 311 H (70-105) mg/dL Hemoglobin A1c 7.7 H (4-6) % Medications & Allergies - Medications Allergies/Adverse Reactions: Allergies No Known Allergies Allergy (Unverified 03/18/13 16:02) Home Medications: Home Medications Medication Instructions Recorded Confirmed Last Taken Type AtorvaSTATin [Lipitor] 40 mg PO QHS 05/05/19 08/02/20 Unknown History NIFEdipine XL [Procardia Xl] 90 mg PO QDAY #90 tablet 05/07/19 08/02/20 Unknown Rx carvediloL [Coreg] 25 mg PO QHS #90 tablet 05/07/19 08/02/20 Unknown Rx carvediloL [Coreg] 37.5 mg PO QAM #90 tablet 05/07/19 08/02/20 Unknown Rx Insulin Lispro [Humalog] 100 unit SQ BID 08/02/20 08/02/20 Unknown History labetaloL [Labetalol 100mg TAB] 100 mg PO BID 08/02/20 08/02/20 Unknown History Active Medications: Generic Name Dose Route Start Last Admin Trade Name Freq PRN Reason Stop Dose Admin Acetaminophen 650 mg 08/02/20 01:56 Acetaminophen 325 Mg Tab PO Q4H PRN Pain MILD(1-3)/Fever >100.5/DIA Albuterol/Ipratropium 1 ampul 08/02/20 02:00 08/03/20 14:43 Ipratropium/Albuterol Sulfate 3 Ml Ampul.Neb IH Not Given Q6HRT JUAN DANIEL Calcitriol 0.25 mcg 08/02/20 10:00 08/03/20 10:21 Calcitriol 0.25 Mcg Cap PO 0.25 mcg QDAY JUAN DANIEL Administration Carvedilol 37.5 mg 08/02/20 10:00 08/03/20 10:20 Carvedilol 12.5 Mg Tab PO 37.5 mg QAM JUAN DANIEL Administration Carvedilol 25 mg 08/02/20 22:00 08/02/20 22:48 Carvedilol 25 Mg Tab PO 25 mg QHS JUAN DANIEL Administration Dextrose 50 ml 05/21/21 01:56 Dextrose 50% In Water (25gm) 50 Ml Syringe IV Q30MIN PRN Hypoglycemia Protocol Famotidine 20 mg 08/02/20 10:00 08/03/20 10:21 Famotidine 20 Mg Tab PO 20 mg BID JUAN DANIEL Administration Ferrous Sulfate 325 mg 08/02/20 10:00 08/03/20 10:21 Ferrous Sulfate 325 Mg Tab PO 325 mg QDAY JUAN DANIEL Administration Hydralazine HCl 10 mg 08/02/20 03:00 08/02/20 06:17 Hydralazine 20 Mg/1 Ml Inj IV 10 mg Q6HR PRN Administration Blood Pressure Hydromorphone HCl 1 mg 08/02/20 11:24 08/03/20 13:23 Hydromorphone 1 Mg/1 Ml Inj IV 1 mg Q3H PRN Administration Pain , Severe (7-10) Sodium Chloride 1,000 mls @ 100 mls/hr 08/02/20 14:45 08/03/20 14:23 Nacl 0.9% 1000 Ml IV 100 mls/hr DIRECT JUAN DANIEL Administration Insulin Glargine 10 units 08/03/20 22:00 Insulin Glargine 100 Units/Ml SUB-Q QHS [facility] Insulin Human Lispro 0 unit 08/02/20 07:30 08/03/20 17:10 Insulin Lispro 100 Unit/Ml SUB-Q Not Given ACHS [facility] Protocol Metoclopramide HCl 5 mg 08/02/20 02:14 08/02/20 10:02 Metoclopramide 10 Mg Tab PO 5 mg QID PRN Administration Nausea Metoclopramide HCl 5 mg 08/02/20 02:15 Metoclopramide 10 Mg/2 Ml Inj IV Q6H PRN Nausea And Vomiting Nifedipine 90 mg 08/02/20 10:00 08/03/20 10:21 Nifedipine Xl 90 Mg Tab PO 90 mg QDAY [facility] Administration Ondansetron HCl 4 mg 08/02/20 17:17 08/02/20 18:11 Ondansetron 4 Mg/2 Ml Inj IV 4 mg Q4H PRN Administration Nausea And Vomiting Phenol 1 spray 08/02/20 01:54 Phenol 1.4% 177 Ml Bottle MM PRN PRN Sore Throat Simethicone 80 mg 08/02/20 10:00 08/02/20 10:03 Simethicone 80 Mg Chew Tab PO 80 mg Q6H PRN Administration Gas pain Sodium Bicarbonate 1,300 mg 08/03/20 14:00 08/03/20 13:22 Sodium Bicarbonate 650 Mg Tab PO 1,300 mg TID JUAN DANIEL Administration Sodium Chloride 10 ml 08/02/20 10:00 08/03/20 10:21 Sodium Chloride 0.9% 10 Ml Flush Syringe IV 10 ml BID JUAN DANIEL Administration Sodium Chloride 10 ml 08/02/20 01:56 Sodium Chloride 0.9% 10 Ml Flush Syringe IV PRN PRN LINE FLUSH
[2020-08-03] MEDS: DOCUSATE SODIUM 100 MG CAP PO SCH (19:33)
[2020-08-03] MEDS: POLYETHYLENE GLYCOL 3350 17 GM POWDER PO PRN (19:34)
[2020-08-03] MEDS ORDERED: INSULIN GLARGINE 100 UNITS/ML SUB-Q SCH (22:00)
[2020-08-03] MEDS: carvediloL 25 MG TAB PO SCH (22:39)
[2020-08-04] MEDS: IPRATROPIUM/ALBUTEROL SULFATE 3 ML AMPUL.NEB IH SCH (02:48)
[2020-08-04] MEDS: HYDROmorphone 1 MG/1 ML INJ IV PRN (05:56)
[2020-08-04] MEDS ORDERED: ALBUTEROL 2.5 MG/3 ML NEBU IH PRN (06:55)
[2020-08-04 07:53] LABS: Calcium 7.4 mg/dL (8.4-10.2)
--- NOTE | 2020-08-04 07:54 | Progress Note ---
Assessment and Plan Assessment and plan: (1) stage V CKD Current Visit: Yes Status: Acute Qualifiers: Acute renal failure type: unspecified Chronic kidney disease stage: unspecified stage Qualified Code(s): N17.9 - Acute kidney failure, unspecified; N18.9 - Chronic kidney disease, unspecified Plan to address problem: Admit the patient to the medical telemetry. Put the patient on 1800 kcal ADA renal diet. Half-normal saline at the rate of 100 cc/h. We will consult nephrology for further evaluation and treatment. Avoid nephrotoxic drug. Recheck BMP in the morning (2) Intractable vomiting with nausea Current Visit: Yes Status: Acute Plan to address problem: Pepcid 20 mg p.o. twice daily. Zofran 4 mg IV every 6 hours as needed. Reglan 10 mg IV every 6 hours as needed. If needed will consult GI (3) Hypertension Current Visit: Yes Status: Acute Plan to address problem: Coreg 37.5 mg p.o. every morning and Coreg 25 mg p.o. nightly. Hydralazine 10 mg IV every 6 hours as needed. Nifedipine XL 90 mg p.o. daily. We will monitor the blood pressure closely (4) Abdominal pain Current Visit: Yes Status: Acute Qualifiers: Abdominal location: generalized Qualified Code(s): R10.84 - Generalized abdominal pain Plan to address problem: Tylenol 650 mg p.o. every 6 hours as needed. Pepcid 20 mg p.o. twice daily. Zofran 4 mg IV every 6 hours as needed. If needed will consult GI (5) Diabetes mellitus Current Visit: No Status: Chronic Plan to address problem: We will put the patient on 1800 kcal ADA diet. Humalog sliding scale Accu-Chek before meals and at bedtime with moderate dose coverage. Will consult for diabetic education. Recheck BMP in the morning (6) DVT prophylaxis Current Visit: Yes Status: Acute Plan to address problem: Heparin 5000 units subcu every 8 hours for DVT prophylaxis. Pepcid 20 mg p.o. twice daily for GI prophylaxis. Patient is a full code 08/03/2020 -Patient was seen by nephrology and patient agreed with dialysis and will have permacath placement on Wednesday. Nephrology consult appreciated. -Abdominal pain and nausea is due to uremia, will continue symptomatic management -Diabetes mellitus uncontrolled, will check A1c, continue sliding scale and added 10 units of Lantus. A1c is 7.7 -Hypertension controlled. -Patient was evaluated by GI and said the abdominal pain is due to uremia and signed off. 08/04/2020 -Patient is followed with nephrology and will have dialysis catheter placement tomorrow. -Abdominal pain is getting better. -Patient's blood sugar was low and will stop lantus. History Interval history: Patient was seen and evaluated this morning. Patient's abdominal pain is getting better Patient tolerated diet Hospitalist Physical - Physical exam Narrative exam: Not in cardiopulmonary distress. The patient appeared well nourished and normally developed. Vital signs as documented. Head exam is unremarkable. No scleral icterus . Neck is without jugular venous distension, thyromegaly, or carotid bruits. Lungs are clear to auscultation. Cardiac exam reveals regular rate and Rhythm. Abdominal exam reveals normal bowel sounds, nontender, no organomegaly. Extremities are nonedematous and both femoral and pedal pulses are normal. OFFICE CLERK ASSISTANT: Alert and oriented 3. No focal weakness. - Constitutional Vitals: Temp Pulse Resp BP Pulse Ox 98.6 F 81 18 117/72 100 08/04/20 04:27 08/04/20 04:27 08/04/20 06:26 08/04/20 04:27 08/04/20 04:27 General appearance: Present: no acute distress Results - Labs CBC & Chem 7: 08/03/20 05:09 08/04/20 05:44 Labs: Laboratory Last Values WBC 9.8 K/mm3 (4.5-11.0) 08/03/20 05:09 RBC 3.65 M/mm3 (3.65-5.03) 08/03/20 05:09 Hgb 10.3 gm/dl (11.8-15.2) L 08/03/20 05:09 Hct 31.6 % (35.5-45.6) L 08/03/20 05:09 MCV 87 fl (84-94) 08/03/20 05:09 MCH 28 pg (28-32) 08/03/20 05:09 MCHC 33 % (32-34) 08/03/20 05:09 RDW 15.5 % (13.2-15.2) H 08/03/20 05:09 Plt Count 247 K/mm3 (140-440) 08/03/20 05:09 Lymph % (Auto) 41.9 % (13.4-35.0) H 08/03/20 05:09 [place] % (Auto) 5.8 % (0.0-7.3) 08/03/20 05:09 Eos % (Auto) 0.5 % (0.0-4.3) 08/03/20 05:09 Baso % (Auto) 0.7 % (0.0-1.8) 08/03/20 05:09 Lymph # (Auto) 4.1 K/mm3 (1.2-5.4) 08/03/20 05:09 [place] # (Auto) 0.6 K/mm3 (0.0-0.8) 08/03/20 05:09 Eos # (Auto) 0.1 K/mm3 (0.0-0.4) 08/03/20 05:09 Baso # (Auto) 0.1 K/mm3 (0.0-0.1) 08/03/20 05:09 Seg Neutrophils % 51.1 % (40.0-70.0) 08/03/20 05:09 Seg Neutrophils # 5.0 K/mm3 (1.8-7.7) 08/03/20 05:09 PT 13.1 Sec. (12.2-14.9) 08/01/20 21:49 INR 1.01 (0.87-1.13) 08/01/20 21:49 APTT 28.0 Sec. (24.2-36.6) 08/01/20 21:49 VBG pH 7.385 (7.320-7.420) 08/01/20 21:49 Sodium 131 mmol/L (137-145) L 08/03/20 05:09 Potassium 4.5 mmol/L (3.6-5.0) 08/03/20 05:09 Chloride 100.2 mmol/L (98-107) 08/03/20 05:09 Carbon Dioxide 13 mmol/L (22-30) L 08/03/20 05:09 Anion Gap 22 mmol/L 08/03/20 05:09 BUN 61 mg/dL (9-20) H 08/03/20 05:09 Creatinine 9.7 mg/dL (0.8-1.3) H 08/03/20 05:09 Estimated GFR 7 ml/min 08/03/20 05:09 BUN/Creatinine Ratio 6 % 08/03/20 05:09 Glucose 221 mg/dL (75-100) H 08/03/20 05:09 POC Glucose 114 mg/dL (70-105) H 08/03/20 21:52 Hemoglobin A1c 7.7 % (4-6) H 08/03/20 05:09 Lactic Acid 1.30 mmol/L (0.7-2.0) 08/01/20 21:49 Calcium 8.7 mg/dL (8.4-10.2) 08/03/20 05:09 Magnesium 2.00 mg/dL (1.7-2.3) 08/01/20 21:49 Total Bilirubin 0.30 mg/dL (0.1-1.2) 08/01/20 19:36 AST 22 units/L (5-40) 08/01/20 19:36 ALT 43 units/L (7-56) 08/01/20 19:36 Alkaline Phosphatase 158 units/L (35-129) H 08/01/20 19:36 Total Protein 7.7 g/dL (6.3-8.2) 08/01/20 19:36 Albumin 4.3 g/dL (3.9-5) 08/01/20 19:36 Albumin/Globulin Ratio 1.3 % 08/01/20 19:36 Lipase 20 units/L (13-60) 08/01/20 19:36 Urine Color Straw (Yellow) 08/02/20 03:28 Urine Turbidity Clear (Clear) 08/02/20 03:28 Urine pH 5.0 (5.0-7.0) 08/02/20 03:28 Ur Specific [place] 1.007 (1.003-1.030) 08/02/20 03:28 Urine Protein >500 mg/dL (Negative) 08/02/20 03:28 Urine Glucose (UA) >=500 mg/dL (Negative) 08/02/20 03:28 Urine Ketones Neg mg/dL (Negative) 08/02/20 03:28 Urine Blood Sm (Negative) 08/02/20 03:28 Urine Nitrite Neg (Negative) 08/02/20 03:28 Urine Bilirubin Neg (Negative) 08/02/20 03:28 Urine Urobilinogen < 2.0 mg/dL (<2.0) 08/02/20 03:28 Ur Leukocyte Esterase Neg (Negative) 08/02/20 03:28 Urine WBC (Auto) 2.0 /HPF (0.0-6.0) 08/02/20 03:28 Urine RBC (Auto) 2.0 /HPF (0.0-6.0) 08/02/20 03:28 Urine Bacteria (Auto) 1+ /HPF (Negative) 08/02/20 03:28 Urine Yeast (Budding) 1+ /HPF 08/02/20 03:28 Coronavirus (PCR) Negative (Negative) 08/03/20 Unknown Hepatitis A IgM Ab Non-reactive (NonReactive) 08/02/20 15:25 Hep Bs Antigen Non-reactive (Negative) 08/02/20 15:25 Hep B Core IgM Ab Non-reactive (NonReactive) 08/02/20 15:25 Hepatitis C Antibody Non-reactive (NonReactive) 08/02/20 15:25 [place]/IV: Voiding Method Toilet Active Medications - Current Medications Current Medications: Generic Name Dose Route Start Last Admin Trade Name Freq PRN Reason Stop Dose Admin Acetaminophen 650 mg 08/02/20 01:56 Acetaminophen 325 Mg Tab PO Q4H PRN Pain MILD(1-3)/Fever >100.5/DIA Albuterol 2.5 mg 08/04/20 06:55 Albuterol 2.5 Mg/3 Ml Nebu IH PRN PRN Shortness Of Breath Calcitriol 0.25 mcg 08/02/20 10:00 08/03/20 10:21 Calcitriol 0.25 Mcg Cap PO 0.25 mcg QDAY JUAN DANIEL Administration Carvedilol 37.5 mg 08/02/20 10:00 08/03/20 10:20 Carvedilol 12.5 Mg Tab PO 37.5 mg QAM JUAN DANIEL Administration Carvedilol 25 mg 08/02/20 22:00 08/03/20 22:39 Carvedilol 25 Mg Tab PO 25 mg QHS JUAN DANIEL Administration Dextrose 50 ml 08/02/20 01:56 Dextrose 50% In Water (25gm) 50 Ml Syringe IV Q30MIN PRN Hypoglycemia Protocol Docusate Sodium 100 mg 08/03/20 19:00 08/03/20 19:33 Docusate Sodium 100 Mg Cap PO 100 mg DAILY JUAN DANIEL Administration Famotidine 20 mg 08/02/20 10:00 08/03/20 22:39 Famotidine 20 Mg Tab PO 20 mg BID JUAN DANIEL Administration Ferrous Sulfate 325 mg 08/02/20 10:00 08/03/20 10:21 Ferrous Sulfate 325 Mg Tab PO 325 mg QDAY JUAN DANIEL Administration Hydralazine HCl 10 mg 08/02/20 03:00 08/02/20 06:17 Hydralazine 20 Mg/1 Ml Inj IV 10 mg Q6HR PRN Administration Blood Pressure Sodium Chloride 1,000 mls @ 100 mls/hr 08/02/20 14:45 08/03/20 22:53 Nacl 0.9% 1000 Ml IV 100 mls/hr DIRECT JUAN DANIEL Administration Insulin Glargine 10 units 08/03/20 22:00 08/03/20 22:40 Insulin Glargine 100 Units/Ml SUB-Q 10 units QHS [facility] Administration Insulin Human Lispro 0 unit 08/02/20 07:30 08/03/20 22:40 Insulin Lispro 100 Unit/Ml SUB-Q Not Given ACHS [facility] Protocol Metoclopramide HCl 5 mg 08/02/20 02:14 08/02/20 10:02 Metoclopramide 10 Mg Tab PO 5 mg QID PRN Administration Nausea Metoclopramide HCl 5 mg 08/02/20 02:15 Metoclopramide 10 Mg/2 Ml Inj IV Q6H PRN Nausea And Vomiting Nifedipine 90 mg 08/02/20 10:00 08/03/20 10:21 Nifedipine Xl 90 Mg Tab PO 90 mg QDAY [facility] Administration Ondansetron HCl 4 mg 08/02/20 17:17 08/02/20 18:11 Ondansetron 4 Mg/2 Ml Inj IV 4 mg Q4H PRN Administration Nausea And Vomiting Oxycodone/Acetaminophen 1 tab 08/04/20 07:52 Oxycodone /Acetaminophen 5-325mg Tab PO Q6H PRN Pain, Moderate (4-6) Phenol 1 spray 08/02/20 01:54 Phenol 1.4% 177 Ml Bottle MM PRN PRN Sore Throat Polyethylene Glycol 17 gm 08/03/20 18:29 08/03/20 19:34 Polyethylene Glycol 3350 17 Gm Powder PO 17 gm BID PRN Administration constipation Simethicone 80 mg 08/02/20 10:00 08/02/20 10:03 Simethicone 80 Mg Chew Tab PO 80 mg Q6H PRN Administration Gas pain Sodium Bicarbonate 1,300 mg 08/03/20 14:00 08/03/20 22:39 Sodium Bicarbonate 650 Mg Tab PO 1,300 mg TID JUAN DANIEL Administration Sodium Chloride 10 ml 08/02/20 10:00 08/03/20 22:40 Sodium Chloride 0.9% 10 Ml Flush Syringe IV 10 ml BID JUAN DANIEL Administration Sodium Chloride 10 ml 08/02/20 01:56 Sodium Chloride 0.9% 10 Ml Flush Syringe IV PRN PRN LINE FLUSH Nutrition/Malnutrition Assess - Dietary Evaluation Nutrition/Malnutrition Findings: Nutrition Notes Start: 08/02/20 10:53 Freq: Status: Active Protocol: Document 08/02/20 10:53 AL (Rec: 08/02/20 11:05 AL [id number]) Co-Sign 08/02/20 10:53 LP Nutrition Notes Need for Assessment generated from: MD Order,Education Initial or Follow up Assessment Current Diagnosis CKD (stage V CKD),Diabetes, Hypertension Other Pertinent Diagnosis Intractable N/V, abd pain Current Diet Cardiac/Consistent Carbohydrate Renal Labs/Tests BUN 61 Cr 10 Pertinent Medications Zofran .45 NS 100 ml/hr Height 6 ft 1 in Weight 65.9 kg [place] Body Weight (kg) 83.63 BMI 19.1 Weight change and time frame Pt wt in chart is an error. Pt wt is 145 lbs, not 145 kg. Pt reports wt loss of 5% (9 lbs) in past 2-3 days. Weight Status Appropriate Subjective/Other Information MD order for diet education. Pt reports wt. loss of 8-9 lbs in 2 days. He is afraid to eat d/t N/V. Breakfast eaten at <25%. Pt. requests ONS due to poor appetite. Diet education on N/V, CHO Counting , and Heart Health well received by patient. Percent of energy/protein needs met: 25%/29% Burn Absent Trauma Absent GI Symptoms Nausea,Vomiting Food Allergy No Current % PO Negligible Minimum of two criteria Yes Energy Intake (severe) < or equal to 50% Estimated Energy Requirement > or equal to 5 days Interpretation of Weight Loss (severe) >2% in 1 week #3 Nutrition Diagnosis Inadequate oral intake Etiology Loss of appetite, N/V As Evidenced by Signs and Symptoms pt meets 25%/29% estimated energy/protein needs PO #2 Nutrition Diagnosis Malnutrition Etiology N/V and loss of appetite As Evidenced by Signs and Symptoms Pt consumed <50% of estimated energy needs and has wt loss of 5% in 2-3 days. #1 Nutrition Diagnosis Food and nutrition-related knowledge deficit Etiology DM, N/V As Evidenced by Signs and Symptoms pt. did not know about nutrition therapy for DM and N /V. Is patient on ventilator? No Is Patient Ambulatory and/or Out of Bed Yes REE-([facility]-ambulatory/OOB) [ 2070.744 [id number]] Calculation Used for Recommendations [facility] Additional Notes Pro: 79-99 g (1.2-1.5 g/kg) Fluid: 1 ml/kcal Nutrition Intervention Change Diet Order: Continue current order Add Supplement/Snack (indicate name/kcal Glucerna Phyllis & Vanilla /protein ) BID Provides kCal: 440 Provides Protein (gm) 20 Teaching Recipient Patient Learning Readiness Good Teaching Methods Discussion,Handout Response to Teaching Return demonstration,Verbalize understanding Education Handouts Provided Carb Counting for People with Diabetes Nausea/Vomiting Nutrition Therapy Barriers to Learning No Barriers RD phone number provided Yes Patient aware of follow up options Yes Goal #1 Meet 75% of estimated energy needs via diet & ONS Goal #2 ONS tolerance. Goal #3 Wt gain/maintenence Anticipated Discharge Needs: Renal/Consistenc CHO diet Follow-Up By: 08/05/20 Additional Comments F/U for intakes and ONS tolerance.
[2020-08-04] MEDS: INSULIN LISPRO 100 UNIT/ML SUB-Q SCH ×4 (08:00→22:42)
[2020-08-04] MEDS: SODIUM CHLORIDE 0.9% 1000 ML 1,000 ML IV SCH ×2 (08:33→17:46)
[2020-08-04] MEDS: FERROUS SULFATE 325 MG TAB PO SCH (10:03)
[2020-08-04] MEDS: SODIUM BICARBONATE 650 MG TAB PO SCH ×3 (10:03→22:17)
[2020-08-04] MEDS: FAMOTIDINE 20 MG TAB PO SCH ×2 (10:03→22:17)
[2020-08-04] MEDS: CALCITRIOL 0.25 MCG CAP PO SCH (10:03)
[2020-08-04] MEDS: DOCUSATE SODIUM 100 MG CAP PO SCH (10:03)
[2020-08-04] MEDS: carvediloL 12.5 MG TAB PO SCH (10:08)
[2020-08-04] MEDS: NIFEdipine XL 90 MG TAB PO SCH (10:09)
[2020-08-04] MEDS: oxyCODONE /ACETAMINOPHEN 5-325MG TAB PO PRN ×3 (10:13→23:28)
--- NOTE | 2020-08-04 16:52 | Consultation ---
History of Present Illness - Reason for Consult Consult date: 08/04/20 Permacath Insertion Requesting physician: LANDON PORRAS - History of Present Illness The patient is a 44-year-old male with a history of stage V chronic renal insufficiency. He presented to the emergency department with complaints of nausea, vomiting, abdominal pain, and loose stools. He has known about his renal insufficiency for years however he has not followed up with his nephrolog ist and over 6 months. He has progressed to end-stage renal disease and is in need of permacath insertion. We were consulted for insertion of a permacath. He has no additional complaints at this time. Past History Past Medical History: diabetes, hypertension, renal failure Social history: no significant social history Medications and Allergies Allergies Allergy/AdvReac Type Severity Reaction Status Date / Time No Known Allergies Allergy Unverified 03/18/13 16:02 Home Medications Medication Instructions Recorded Confirmed Last Taken Type AtorvaSTATin [Lipitor] 40 mg PO QHS 05/05/19 08/02/20 Unknown History NIFEdipine XL [Procardia Xl] 90 mg PO QDAY #90 tablet 05/07/19 08/02/20 Unknown Rx carvediloL [Coreg] 25 mg PO QHS #90 tablet 05/07/19 08/02/20 Unknown Rx carvediloL [Coreg] 37.5 mg PO QAM #90 tablet 05/07/19 08/02/20 Unknown Rx Insulin Lispro [Humalog] 100 unit SQ BID 08/02/20 08/02/20 Unknown History labetaloL [Labetalol 100mg TAB] 100 mg PO BID 08/02/20 08/02/20 Unknown History Active Meds: Active Medications Acetaminophen (Acetaminophen 325 Mg Tab) 650 mg PO Q4H PRN PRN Reason: Pain MILD(1-3)/Fever >100.5/DIA Albuterol (Albuterol 2.5 Mg/3 Ml Nebu) 2.5 mg IH PRN PRN PRN Reason: Shortness Of Breath Calcitriol (Calcitriol 0.25 Mcg Cap) 0.25 mcg PO QDAY [facility] Last Admin: 08/04/20 10:03 Dose: 0.25 mcg Documented by: Carvedilol (Carvedilol 12.5 Mg Tab) 37.5 mg PO QAM [facility] Last Admin: 08/04/20 10:08 Dose: 37.5 mg Documented by: Carvedilol (Carvedilol 25 Mg Tab) 25 mg PO QHS [facility] Last Admin: 08/03/20 22:39 Dose: 25 mg Documented by: Dextrose (Dextrose 50% In Water (25gm) 50 Ml Syringe) 50 ml IV Q30MIN PRN; Protocol PRN Reason: Hypoglycemia Last Admin: 08/04/20 08:19 Dose: 50 ml Documented by: Docusate Sodium (Docusate Sodium 100 Mg Cap) 100 mg PO DAILY [facility] Last Admin: 08/04/20 10:03 Dose: 100 mg Documented by: Famotidine (Famotidine 20 Mg Tab) 20 mg PO BID [facility] Last Admin: 08/04/20 10:03 Dose: 20 mg Documented by: Ferrous Sulfate (Ferrous Sulfate 325 Mg Tab) 325 mg PO QDAY [facility] Last Admin: 08/04/20 10:03 Dose: 325 mg Documented by: Hydralazine HCl (Hydralazine 20 Mg/1 Ml Inj) 10 mg IV Q6HR PRN PRN Reason: Blood Pressure Last Admin: 08/02/20 06:17 Dose: 10 mg Documented by: Sodium Chloride (Nacl 0.9% 1000 Ml) 1,000 mls @ 100 mls/hr IV DIRECT [facility] Last Admin: 08/04/20 08:33 Dose: 100 mls/hr Documented by: Insulin Human Lispro (Insulin Lispro 100 Unit/Ml) 0 unit SUB-Q ACHS [facility]; Protocol Last Admin: 08/04/20 12:07 Dose: 2 unit Documented by: Metoclopramide HCl (Metoclopramide 10 Mg Tab) 5 mg PO QID PRN PRN Reason: Nausea Last Admin: 08/02/20 10:02 Dose: 5 mg Documented by: Metoclopramide HCl (Metoclopramide 10 Mg/2 Ml Inj) 5 mg IV Q6H PRN PRN Reason: Nausea And Vomiting Nifedipine (Nifedipine Xl 90 Mg Tab) 90 mg PO QDAY [facility] Last Admin: 08/04/20 10:09 Dose: 90 mg Documented by: Ondansetron HCl (Ondansetron 4 Mg/2 Ml Inj) 4 mg IV Q4H PRN PRN Reason: Nausea And Vomiting Last Admin: 08/02/20 18:11 Dose: 4 mg Documented by: Oxycodone/Acetaminophen (Oxycodone /Acetaminophen 5-325mg Tab) 1 tab PO Q6H PRN PRN Reason: Pain, Moderate (4-6) Last Admin: 08/04/20 10:13 Dose: 1 tab Documented by: Phenol (Phenol 1.4% 177 Ml Bottle) 1 spray MM PRN PRN PRN Reason: Sore Throat Polyethylene Glycol (Polyethylene Glycol 3350 17 Gm Powder) 17 gm PO BID PRN PRN Reason: constipation Last Admin: 08/03/20 19:34 Dose: 17 gm Documented by: Simethicone (Simethicone 80 Mg Chew Tab) 80 mg PO Q6H PRN PRN Reason: Gas pain Last Admin: 08/02/20 10:03 Dose: 80 mg Documented by: Sodium Bicarbonate (Sodium Bicarbonate 650 Mg Tab) 1,300 mg PO TID JUAN DANIEL Last Admin: 08/04/20 15:31 Dose: 1,300 mg Documented by: Sodium Chloride (Sodium Chloride 0.9% 10 Ml Flush Syringe) 10 ml IV BID [facility] Last Admin: 08/04/20 12:07 Dose: 10 ml Documented by: Sodium Chloride (Sodium Chloride 0.9% 10 Ml Flush Syringe) 10 ml IV PRN PRN PRN Reason: LINE FLUSH Review of Systems All systems: negative Exam - Constitutional Vitals: Temp Pulse Resp BP Pulse Ox 98.2 F 81 18 144/76 100 08/04/20 10:15 08/04/20 10:15 08/04/20 10:15 08/04/20 10:15 08/04/20 10:00 General appearance: Present: no acute distress - Neck Neck: Present: supple - Respiratory Respiratory effort: normal - Cardiovascular Rhythm: regular - Extremities Extremities: no ischemia, normal temperature - Abdominal General gastrointestinal: Present: soft Male genitourinary: Present: deferred - Rectal Rectal Exam: deferred Results - Labs CBC & Chem 7: 08/03/20 05:09 08/04/20 05:44 Labs: Abnormal lab results 08/03/20 08/03/20 08/04/20 Range/Units 16:59 21:52 05:44 Sodium 133 L (137-145) mmol/L Carbon Dioxide 13 L (22-30) mmol/L BUN 62 H (9-20) mg/dL Creatinine 10.4 H (0.8-1.3) mg/dL Glucose 57 L (75-100) mg/dL POC Glucose 61 L 114 H (70-105) mg/dL Calcium 7.4 L (8.4-10.2) mg/dL 08/04/20 08/04/20 08/04/20 Range/Units 08:05 09:39 11:11 Sodium (137-145) mmol/L Carbon Dioxide (22-30) mmol/L BUN (9-20) mg/dL Creatinine (0.8-1.3) mg/dL Glucose (75-100) mg/dL POC Glucose 31 L 172 H 182 H (70-105) mg/dL Calcium (8.4-10.2) mg/dL Assessment and Plan Patient is a 44-year-old male with history of stage V chronic renal insufficiency who has progressed to end-stage renal disease and is in need of a permacath for hemodialysis. I discussed the need for permacath placement as well as the risk and benefits. I also discussed the need for quickly having a work-up and replacement of long-term dialysis access. After completing the explanation the patient stated that [place]and he would like to follow-up with that physician for second opinion. He stated that he had a scheduled appointment on Wednesday and wanted to follow-up with that tire molder to see if they agree that he required the initiation of dialysis. He refused placement of a permacath at this time. I will make him n.p.o. after midnight in case he does change his mind.
[2020-08-04] MEDS ORDERED: SODIUM CHLORIDE 0.9% 100 ML IV PRN (17:21)
--- NOTE | 2020-08-04 17:24 | Progress Note ---
Assessment and Plan Impression: * End stage renal disease * Uremia * Metabolic acidosis * Hypertension * Type II diabetes mellitus Plan: * Recommend initiation of hemodialysis in setting of nausea/vomiting at admission c/w uremia. Patient states that he would like to discuss with his manager change at [employer] who he has followed with for the past 2 years. Patient reports that he has an appt with his manager change next week. He reports that his kidney function was "13" appx 6 months ago and had been "13 for a while". I advised patient that his GFR is now 6, and although he may feel well today, symptoms prompting his presentation to the ED can return. He was also advised of risk of without dialysis. Patient voiced understanding. * Hemodialysis orders for tomorrow have been entered if patient changes his mind * Vascular surgery consultation noted - patient declined permcath * Discontinue IVF as renal function * Continue NaBicarb TID * GI recommendations noted - "suspect most symptoms due to uremia" * Continue antiHTN medications * Dose medications for renal function Subjective Date of service: 08/04/20 Interval history: Patient has no complaints. States that he feels "great" Objective - Vital Signs Vital signs: Vital Signs - 12hr 08/04/20 08/04/20 08/04/20 05:56 06:26 08:49 Temperature Pulse Rate Respiratory 18 18 Rate Respiratory Rate [Abdomen] Blood Pressure Blood Pressure [Right] O2 Sat by Pulse 100 Oximetry 08/04/20 08/04/20 08/04/20 10:00 10:08 10:15 Temperature 98.2 F Pulse Rate 81 81 Respiratory 18 18 Rate Respiratory 18 Rate [Abdomen] Blood Pressure 144/76 Blood Pressure 144/76 [Right] O2 Sat by Pulse 100 Oximetry - General Appearance General appearance: well-developed, well-nourished EENT: ATNC Respiratory: Present: Clear to Ascultation Cardiology: regular, S1S2 Gastrointestinal: normal, no tenderness, no distended Integumentary: no rash, warm and dry Neurologic: no focal deficit, alert and oriented x3 - Lab 08/03/20 05:09 08/04/20 05:44 Most recent lab results Calcium 7.4 mg/dL (8.4-10.2) L 08/04/20 05:44 Magnesium 2.00 mg/dL (1.7-2.3) 08/01/20 21:49 Medications & Allergies - Medications Allergies/Adverse Reactions: Allergies No Known Allergies Allergy (Unverified 03/18/13 16:02) Home Medications: Home Medications Medication Instructions Recorded Confirmed Last Taken Type AtorvaSTATin [Lipitor] 40 mg PO QHS 05/05/19 08/02/20 Unknown History NIFEdipine XL [Procardia Xl] 90 mg PO QDAY #90 tablet 05/07/19 08/02/20 Unknown Rx carvediloL [Coreg] 25 mg PO QHS #90 tablet 05/07/19 08/02/20 Unknown Rx carvediloL [Coreg] 37.5 mg PO QAM #90 tablet 05/07/19 08/02/20 Unknown Rx Insulin Lispro [Humalog] 100 unit SQ BID 08/02/20 08/02/20 Unknown History labetaloL [Labetalol 100mg TAB] 100 mg PO BID 08/02/20 08/02/20 Unknown History Active Medications: Generic Name Dose Route Start Last Admin Trade Name Freq PRN Reason Stop Dose Admin Acetaminophen 650 mg 08/02/20 01:56 Acetaminophen 325 Mg Tab PO Q4H PRN Pain MILD(1-3)/Fever >100.5/DIA Albuterol 2.5 mg 08/04/20 06:55 Albuterol 2.5 Mg/3 Ml Nebu IH PRN PRN Shortness Of Breath Calcitriol 0.25 mcg 08/02/20 10:00 08/04/20 10:03 Calcitriol 0.25 Mcg Cap PO 0.25 mcg QDAY JUAN DANIEL Administration Carvedilol 37.5 mg 08/02/20 10:00 08/04/20 10:08 Carvedilol 12.5 Mg Tab PO 37.5 mg QAM JUAN DANIEL Administration Carvedilol 25 mg 08/02/20 22:00 08/03/20 22:39 Carvedilol 25 Mg Tab PO 25 mg QHS JUAN DANIEL Administration Dextrose 50 ml 08/02/20 01:56 08/04/20 08:19 Dextrose 50% In Water (25gm) 50 Ml Syringe IV 50 ml Q30MIN PRN Administration Hypoglycemia Protocol Docusate Sodium 100 mg 08/03/20 19:00 08/04/20 10:03 Docusate Sodium 100 Mg Cap PO 100 mg DAILY JUAN DANIEL Administration Famotidine 20 mg 08/02/20 10:00 08/04/20 10:03 Famotidine 20 Mg Tab PO 20 mg BID JUAN DANIEL Administration Ferrous Sulfate 325 mg 08/02/20 10:00 08/04/20 10:03 Ferrous Sulfate 325 Mg Tab PO 325 mg QDAY JUAN DANIEL Administration Hydralazine HCl 10 mg 08/02/20 03:00 08/02/20 06:17 Hydralazine 20 Mg/1 Ml Inj IV 10 mg Q6HR PRN Administration Blood Pressure Sodium Chloride 1,000 mls @ 100 mls/hr 08/02/20 14:45 08/04/20 08:33 Nacl 0.9% 1000 Ml IV 100 mls/hr DIRECT JUAN DANIEL Administration Insulin Human Lispro 0 unit 08/02/20 07:30 08/04/20 12:07 Insulin Lispro 100 Unit/Ml SUB-Q 2 unit ACHS JUAN DANIEL Administration Protocol Metoclopramide HCl 5 mg 08/02/20 02:14 08/02/20 10:02 Metoclopramide 10 Mg Tab PO 5 mg QID PRN Administration Nausea Metoclopramide HCl 5 mg 08/02/20 02:15 Metoclopramide 10 Mg/2 Ml Inj IV Q6H PRN Nausea And Vomiting Nifedipine 90 mg 08/02/20 10:00 08/04/20 10:09 Nifedipine Xl 90 Mg Tab PO 90 mg QDAY JUAN DANIEL Administration Ondansetron HCl 4 mg 08/02/20 17:17 08/02/20 18:11 Ondansetron 4 Mg/2 Ml Inj IV 4 mg Q4H PRN Administration Nausea And Vomiting Oxycodone/Acetaminophen 1 tab 08/04/20 07:52 08/04/20 10:13 Oxycodone /Acetaminophen 5-325mg Tab PO 1 tab Q6H PRN Administration Pain, Moderate (4-6) Phenol 1 spray 08/02/20 01:54 Phenol 1.4% 177 Ml Bottle MM PRN PRN Sore Throat Polyethylene Glycol 17 gm 08/03/20 18:29 08/03/20 19:34 Polyethylene Glycol 3350 17 Gm Powder PO 17 gm BID PRN Administration constipation Simethicone 80 mg 08/02/20 10:00 08/02/20 10:03 Simethicone 80 Mg Chew Tab PO 80 mg Q6H PRN Administration Gas pain Sodium Bicarbonate 1,300 mg 08/03/20 14:00 08/04/20 15:31 Sodium Bicarbonate 650 Mg Tab PO 1,300 mg TID JUAN DANIEL Administration Sodium Chloride 10 ml 08/02/20 10:00 08/04/20 12:07 Sodium Chloride 0.9% 10 Ml Flush Syringe IV 10 ml BID JUAN DANIEL Administration Sodium Chloride 10 ml 08/02/20 01:56 Sodium Chloride 0.9% 10 Ml Flush Syringe IV PRN PRN LINE FLUSH
[2020-08-04] MEDS: carvediloL 25 MG TAB PO SCH (22:17)
[2020-08-05 08:08] LABS: Calcium 7.2 mg/dL (8.4-10.2)
[2020-08-05] MEDS: INSULIN LISPRO 100 UNIT/ML SUB-Q SCH ×4 (08:19→22:29)
[2020-08-05] MEDS: SODIUM BICARBONATE 650 MG TAB PO SCH ×3 (08:20→22:28)
--- NOTE | 2020-08-05 09:27 | Progress Note ---
Assessment and Plan Impression: * End stage renal disease * Uremia * Metabolic acidosis * Hypertension * Type II diabetes mellitus Plan: * Recommend initiation of hemodialysis in setting of nausea/vomiting at admission c/w uremia. 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 * Patient has agreed to proceed with dialysis. He is scheduled for PermCath placement this afternoon. Initiate dialysis after access placement. * Hemodialysis orders for tomorrow have been entered if patient changes his mind * Vascular surgery consultation noted * Continue NaBicarb TID * GI recommendations noted - "suspect most symptoms due to uremia" * Continue antiHTN medications * Dose medications for renal function * Consult case management for outpatient dialysis arrangement Subjective Date of service: 08/05/20 Interval history: Patient is awake and alert. Denies any shortness of breath. Denies any nausea or vomiting. He seems to have agreed for dialysis. He is currently n.p.o. Scheduled to have a PermCath placed this afternoon. Objective - Vital Signs Vital signs: Vital Signs - 12hr 08/04/20 08/04/20 08/05/20 22:00 23:28 00:00 Temperature 98.1 F Pulse Rate 84 Respiratory 18 18 Rate Respiratory 18 Rate [Abdomen] Blood Pressure 159/80 O2 Sat by Pulse 100 Oximetry 08/05/20 08/05/20 00:28 05:36 Temperature 98.4 F Pulse Rate 87 Respiratory 18 18 Rate Respiratory Rate [Abdomen] Blood Pressure 142/84 O2 Sat by Pulse 99 Oximetry - General Appearance General appearance: well-developed, well-nourished, appears stated age EENT: PERRL, mucous membranes moist Neck: no JVD, no thyromegaly, no carotid bruit, supple Respiratory: Present: Clear to Ascultation Cardiology: regular, normal heart rate, S1S2, no murmurs Gastrointestinal: normal, normoactive bowel sounds Integumentary: no rash, other (No edema) - Lab 08/03/20 05:09 08/05/20 06:46 Most recent lab results Calcium 7.2 mg/dL (8.4-10.2) L 08/05/20 06:46 Magnesium 2.00 mg/dL (1.7-2.3) 08/01/20 21:49 Medications & Allergies - Medications Allergies/Adverse Reactions: Allergies No Known Allergies Allergy (Verified 08/04/20 18:36) Home Medications: Home Medications Medication Instructions Recorded Confirmed Last Taken Type AtorvaSTATin [Lipitor] 40 mg PO QHS 05/05/19 08/02/20 Unknown History NIFEdipine XL [Procardia Xl] 90 mg PO QDAY #90 tablet 05/07/19 08/02/20 Unknown Rx carvediloL [Coreg] 25 mg PO QHS #90 tablet 05/07/19 08/02/20 Unknown Rx carvediloL [Coreg] 37.5 mg PO QAM #90 tablet 05/07/19 08/02/20 Unknown Rx Insulin Lispro [Humalog] 100 unit SQ BID 08/02/20 08/02/20 Unknown History labetaloL [Labetalol 100mg TAB] 100 mg PO BID 08/02/20 08/02/20 Unknown History Active Medications: Generic Name Dose Route Start Last Admin Trade Name Freq PRN Reason Stop Dose Admin Acetaminophen 650 mg 08/02/20 01:56 Acetaminophen 325 Mg Tab PO Q4H PRN Pain MILD(1-3)/Fever >100.5/DIA Albuterol 2.5 mg 08/04/20 06:55 Albuterol 2.5 Mg/3 Ml Nebu IH PRN PRN Shortness Of Breath Calcitriol 0.25 mcg 08/02/20 10:00 08/04/20 10:03 Calcitriol 0.25 Mcg Cap PO 0.25 mcg QDAY JUAN DANIEL Administration Carvedilol 37.5 mg 08/02/20 10:00 08/04/20 10:08 Carvedilol 12.5 Mg Tab PO 37.5 mg QAM JUAN DANIEL Administration Carvedilol 25 mg 08/02/20 22:00 08/04/20 22:17 Carvedilol 25 Mg Tab PO 25 mg QHS JUAN DANIEL Administration Dextrose 50 ml 08/02/20 01:56 08/04/20 08:19 Dextrose 50% In Water (25gm) 50 Ml Syringe IV 50 ml Q30MIN PRN Administration Hypoglycemia Protocol Docusate Sodium 100 mg 08/03/20 19:00 08/04/20 10:03 Docusate Sodium 100 Mg Cap PO 100 mg DAILY JUAN DANIEL Administration Famotidine 20 mg 08/02/20 10:00 08/04/20 22:17 Famotidine 20 Mg Tab PO 20 mg BID JUAN DANIEL Administration Ferrous Sulfate 325 mg 08/02/20 10:00 08/04/20 10:03 Ferrous Sulfate 325 Mg Tab PO 325 mg QDAY [facility] Administration Hydralazine HCl 10 mg 08/02/20 03:00 08/02/20 06:17 Hydralazine 20 Mg/1 Ml Inj IV 10 mg Q6HR PRN Administration Blood Pressure Sodium Chloride 100 mls @ 999 mls/hr 08/04/20 17:21 Nacl 0.9% IV LISA PRN Hypotension Insulin Human Lispro 0 unit 08/02/20 07:30 08/05/20 08:19 Insulin Lispro 100 Unit/Ml SUB-Q 3 unit [facility] Administration Protocol Metoclopramide HCl 5 mg 08/02/20 02:14 08/02/20 10:02 Metoclopramide 10 Mg Tab PO 5 mg QID PRN Administration Nausea Metoclopramide HCl 5 mg 08/02/20 02:15 Metoclopramide 10 Mg/2 Ml Inj IV Q6H PRN Nausea And Vomiting Nifedipine 90 mg 08/02/20 10:00 08/04/20 10:09 Nifedipine Xl 90 Mg Tab PO 90 mg QDAY [facility] Administration Ondansetron HCl 4 mg 08/02/20 17:17 08/02/20 18:11 Ondansetron 4 Mg/2 Ml Inj IV 4 mg Q4H PRN Administration Nausea And Vomiting Oxycodone/Acetaminophen 1 tab 08/04/20 07:52 08/04/20 23:28 Oxycodone /Acetaminophen 5-325mg Tab PO 1 tab Q6H PRN Administration Pain, Moderate (4-6) Phenol 1 spray 08/02/20 01:54 Phenol 1.4% 177 Ml Bottle MM PRN PRN Sore Throat Polyethylene Glycol 17 gm 08/03/20 18:29 08/03/20 19:34 Polyethylene Glycol 3350 17 Gm Powder PO 17 gm BID PRN Administration constipation Simethicone 80 mg 08/02/20 10:00 08/02/20 10:03 Simethicone 80 Mg Chew Tab PO 80 mg Q6H PRN Administration Gas pain Sodium Bicarbonate 1,300 mg 08/03/20 14:00 08/05/20 08:20 Sodium Bicarbonate 650 Mg Tab PO Not Given TID JUAN DANIEL Sodium Chloride 10 ml 08/02/20 10:00 08/04/20 22:17 Sodium Chloride 0.9% 10 Ml Flush Syringe IV 10 ml BID JUAN DANIEL Administration Sodium Chloride 10 ml 08/02/20 01:56 Sodium Chloride 0.9% 10 Ml Flush Syringe IV PRN PRN LINE FLUSH
[2020-08-05] MEDS: carvediloL 12.5 MG TAB PO SCH (10:23)
[2020-08-05] MEDS: NIFEdipine XL 90 MG TAB PO SCH (10:23)
[2020-08-05] MEDS ORDERED: SODIUM CHLORIDE 0.9% 250ML 250 ML ONE (12:33)
[2020-08-05] MEDS ORDERED: HEPARIN/NS 5000 UNIT/500ML 500 ML IR ONE (12:33)
--- NOTE | 2020-08-05 12:42 | Progress Note ---
Assessment and Plan Assessment and plan: 44-year-old male with past medical history of diabetes hypertension and renal disease was brought to the emergency room with complaints of abdominal pain which is in his left upper and epigastric region 12/22. Patient states is been going on for 1 week. Patient states that he believes he is in DKA. Patient states he is also having nausea and vomiting. Patient states he cannot stop vomiting. Patient states he has had anything solid or fluids for about 4 days. Patient states he is compliant with his insulin. Patient states he sees a it engineer for chronic kidney disease stage IV. Patient states he is not on dialysis. Patient states he does not know what his baseline creatinine is. Patient states the pain is better with rest and worse with vomiting and movement. Patient denies blood in his vomitus. In the emergency room patient's BUN is [address] scan of the abdomen showed no acute intra-abdominal pathology 08/03/2020 -Patient was seen by nephrology and patient agreed with dialysis and will have permacath placement on Wednesday. Nephrology consult appreciated. -Abdominal pain and nausea is due to uremia, will continue symptomatic management -Diabetes mellitus uncontrolled, will check A1c, continue sliding scale and added 10 units of Lantus. A1c is 7.7 -Hypertension controlled. -Patient was evaluated by GI and said the abdominal pain is due to uremia and signed off. 08/04/2020 -Patient is followed with nephrology and will have dialysis catheter placement tomorrow. -Abdominal pain is getting better. -Patient's blood sugar was low and will stop lantus. 08/05: Reviewed nephrology documentation patient is now in end-stage renal disease designation admitted with uremia. We will continue current management. Patient is for permacath today and will initiate hemodialysis he does admit to recurrent admissions to the hospital in hopes this will make him feel better but he still apprehensive about initiation of dialysis although states that he will do it now to follow-up with his doctors outpatient for second opinion. GI recommends."suspect most symptoms due to uremia" * End stage renal disease * Uremia * Metabolic acidosis * Hypertension * Type II diabetes mellitus * Intractable vomiting with nausea secondary to uremia * Abdominal pain * DVT and GI prophylaxis History Interval history: Patient seen and examined resting comfortably no new complaints although some clarification on the catheter placement discussed in detail with the patient answered all questions appropriately. Hospitalist Physical - Physical exam Narrative exam: VITAL SIGNS: Reviewed. GENERAL: The patient appears normally developed, Vital signs as documented. HEAD: No signs of head trauma. EYES: Pupils are equal. Extraocular motions intact. EARS: Hearing grossly intact. MOUTH: Oropharynx is normal. NECK: No adenopathy, no JVD. CHEST: Chest with clear breath sounds bilaterally. No wheezes, rales, or rhonchi. CARDIAC: Regular rate and rhythm. S1 and S2, without murmurs, gallops, or rubs. VASCULAR: No Edema. Peripheral pulses normal and equal in all extremities. ABDOMEN: Soft, non tender and non distended. No rebound or guarding, and no masses palpated. Bowel Sounds normal. MUSCULOSKELETAL: Good range of motion of all major joints. Extremities without clubbing, cyanosis or edema. NEUROLOGIC EXAM: Alert and oriented x 3 No focal sensory or strength deficits. Speech normal. Follows commands. PSYCHIATRIC: Mood normal. SKIN: detail exam as documented in skin assessment - Constitutional Vitals: Temp Pulse Resp BP Pulse Ox 98.4 F 87 18 168/95 99 08/05/20 05:36 08/05/20 05:36 08/05/20 05:36 08/05/20 10:23 08/05/20 05:36 General appearance: Present: no acute distress Results - Labs CBC & Chem 7: 08/03/20 05:09 08/05/20 06:46 Labs: Laboratory Last Values WBC 9.8 K/mm3 (4.5-11.0) 08/03/20 05:09 RBC 3.65 M/mm3 (3.65-5.03) 08/03/20 05:09 Hgb 10.3 gm/dl (11.8-15.2) L 08/03/20 05:09 Hct 31.6 % (35.5-45.6) L 08/03/20 05:09 MCV 87 fl (84-94) 08/03/20 05:09 MCH 28 pg (28-32) 08/03/20 05:09 MCHC 33 % (32-34) 08/03/20 05:09 RDW 15.5 % (13.2-15.2) H 08/03/20 05:09 Plt Count 247 K/mm3 (140-440) 08/03/20 05:09 Lymph % (Auto) 41.9 % (13.4-35.0) H 08/03/20 05:09 [place] % (Auto) 5.8 % (0.0-7.3) 08/03/20 05:09 Eos % (Auto) 0.5 % (0.0-4.3) 08/03/20 05:09 Baso % (Auto) 0.7 % (0.0-1.8) 08/03/20 05:09 Lymph # (Auto) 4.1 K/mm3 (1.2-5.4) 08/03/20 05:09 [place] # (Auto) 0.6 K/mm3 (0.0-0.8) 08/03/20 05:09 Eos # (Auto) 0.1 K/mm3 (0.0-0.4) 08/03/20 05:09 Baso # (Auto) 0.1 K/mm3 (0.0-0.1) 08/03/20 05:09 Seg Neutrophils % 51.1 % (40.0-70.0) 08/03/20 05:09 Seg Neutrophils # 5.0 K/mm3 (1.8-7.7) 08/03/20 05:09 PT 13.1 Sec. (12.2-14.9) 08/01/20 21:49 INR 1.01 (0.87-1.13) 08/01/20 21:49 APTT 28.0 Sec. (24.2-36.6) 08/01/20 21:49 VBG pH 7.385 (7.320-7.420) 08/01/20 21:49 Sodium 132 mmol/L (137-145) L 08/05/20 06:46 Potassium 4.4 mmol/L (3.6-5.0) 08/05/20 06:46 Chloride 103.3 mmol/L (98-107) 08/05/20 06:46 Carbon Dioxide 15 mmol/L (22-30) L 08/05/20 06:46 Anion Gap 18 mmol/L 08/05/20 06:46 BUN 58 mg/dL (9-20) H 08/05/20 06:46 Creatinine 9.5 mg/dL (0.8-1.3) H 08/05/20 06:46 Estimated GFR 7 ml/min 08/05/20 06:46 BUN/Creatinine Ratio 6 % 08/05/20 06:46 Glucose 208 mg/dL (75-100) H 08/05/20 06:46 POC Glucose 154 mg/dL (70-105) H 08/05/20 12:14 Hemoglobin A1c 7.7 % (4-6) H 08/03/20 05:09 Lactic Acid 1.30 mmol/L (0.7-2.0) 08/01/20 21:49 Calcium 7.2 mg/dL (8.4-10.2) L 08/05/20 06:46 Magnesium 2.00 mg/dL (1.7-2.3) 08/01/20 21:49 Total Bilirubin 0.30 mg/dL (0.1-1.2) 08/01/20 19:36 AST 22 units/L (5-40) 08/01/20 19:36 ALT 43 units/L (7-56) 08/01/20 19:36 Alkaline Phosphatase 158 units/L (35-129) H 08/01/20 19:36 Total Protein 7.7 g/dL (6.3-8.2) 08/01/20 19:36 Albumin 4.3 g/dL (3.9-5) 08/01/20 19:36 Albumin/Globulin Ratio 1.3 % 08/01/20 19:36 Lipase 20 units/L (13-60) 08/01/20 19:36 Urine Color Straw (Yellow) 08/02/20 03:28 Urine Turbidity Clear (Clear) 08/02/20 03:28 Urine pH 5.0 (5.0-7.0) 08/02/20 03:28 Ur Specific [place] 1.007 (1.003-1.030) 08/02/20 03:28 Urine Protein >500 mg/dL (Negative) 08/02/20 03:28 Urine Glucose (UA) >=500 mg/dL (Negative) 08/02/20 03:28 Urine Ketones Neg mg/dL (Negative) 08/02/20 03:28 Urine Blood Sm (Negative) 08/02/20 03:28 Urine Nitrite Neg (Negative) 08/02/20 03:28 Urine Bilirubin Neg (Negative) 08/02/20 03:28 Urine Urobilinogen < 2.0 mg/dL (<2.0) 08/02/20 03:28 Ur Leukocyte Esterase Neg (Negative) 08/02/20 03:28 Urine WBC (Auto) 2.0 /HPF (0.0-6.0) 08/02/20 03:28 Urine RBC (Auto) 2.0 /HPF (0.0-6.0) 08/02/20 03:28 Urine Bacteria (Auto) 1+ /HPF (Negative) 08/02/20 03:28 Urine Yeast (Budding) 1+ /HPF 08/02/20 03:28 Coronavirus (PCR) Negative (Negative) 08/03/20 Unknown Hepatitis A IgM Ab Non-reactive (NonReactive) 08/02/20 15:25 Hep Bs Antigen Non-reactive (Negative) 08/02/20 15:25 Hep B Core IgM Ab Non-reactive (NonReactive) 08/02/20 15:25 Hepatitis C Antibody Non-reactive (NonReactive) 08/02/20 15:25 [place]/IV: Voiding Method Urinal Active Medications - Current Medications Current Medications: Generic Name Dose Route Start Last Admin Trade Name Freq PRN Reason Stop Dose Admin Acetaminophen 650 mg 08/02/20 01:56 Acetaminophen 325 Mg Tab PO Q4H PRN Pain MILD(1-3)/Fever >100.5/DIA Albuterol 2.5 mg 08/04/20 06:55 Albuterol 2.5 Mg/3 Ml Nebu IH PRN PRN Shortness Of Breath Calcitriol 0.25 mcg 08/02/20 10:00 08/04/20 10:03 Calcitriol 0.25 Mcg Cap PO 0.25 mcg QDAY JUAN DANIEL Administration Carvedilol 37.5 mg 08/02/20 10:00 08/05/20 10:23 Carvedilol 12.5 Mg Tab PO 37.5 mg QAM JUAN DANIEL Administration Carvedilol 25 mg 08/02/20 22:00 08/04/20 22:17 Carvedilol 25 Mg Tab PO 25 mg QHS JUAN DANIEL Administration Dextrose 50 ml 08/02/20 01:56 08/04/20 08:19 Dextrose 50% In Water (25gm) 50 Ml Syringe IV 50 ml Q30MIN PRN Administration Hypoglycemia Protocol Docusate Sodium 100 mg 08/03/20 19:00 08/04/20 10:03 Docusate Sodium 100 Mg Cap PO 100 mg DAILY JUAN DANIEL Administration Famotidine 20 mg 08/02/20 10:00 08/04/20 22:17 Famotidine 20 Mg Tab PO 20 mg BID JUAN DANIEL Administration Ferrous Sulfate 325 mg 08/02/20 10:00 08/04/20 10:03 Ferrous Sulfate 325 Mg Tab PO 325 mg QDAY JUAN DANIEL Administration Hydralazine HCl 10 mg 08/02/20 03:00 08/02/20 06:17 Hydralazine 20 Mg/1 Ml Inj IV 10 mg Q6HR PRN Administration Blood Pressure Sodium Chloride 100 mls @ 999 mls/hr 08/04/20 17:21 Nacl 0.9% IV LISA PRN Hypotension Insulin Human Lispro 0 unit 08/02/20 07:30 08/05/20 08:19 Insulin Lispro 100 Unit/Ml SUB-Q 3 unit ACHS JUAN DANIEL Administration Protocol Metoclopramide HCl 5 mg 08/02/20 02:14 08/02/20 10:02 Metoclopramide 10 Mg Tab PO 5 mg QID PRN Administration Nausea Metoclopramide HCl 5 mg 08/02/20 02:15 Metoclopramide 10 Mg/2 Ml Inj IV Q6H PRN Nausea And Vomiting Nifedipine 90 mg 08/02/20 10:00 08/05/20 10:23 Nifedipine Xl 90 Mg Tab PO 90 mg QDAY JUAN DANIEL Administration Ondansetron HCl 4 mg 08/02/20 17:17 08/02/20 18:11 Ondansetron 4 Mg/2 Ml Inj IV 4 mg Q4H PRN Administration Nausea And Vomiting Oxycodone/Acetaminophen 1 tab 08/04/20 07:52 08/04/20 23:28 Oxycodone /Acetaminophen 5-325mg Tab PO 1 tab Q6H PRN Administration Pain, Moderate (4-6) Phenol 1 spray 08/02/20 01:54 Phenol 1.4% 177 Ml Bottle MM PRN PRN Sore Throat Polyethylene Glycol 17 gm 08/03/20 18:29 08/03/20 19:34 Polyethylene Glycol 3350 17 Gm Powder PO 17 gm BID PRN Administration constipation Simethicone 80 mg 08/02/20 10:00 08/02/20 10:03 Simethicone 80 Mg Chew Tab PO 80 mg Q6H PRN Administration Gas pain Sodium Bicarbonate 1,300 mg 08/03/20 14:00 08/05/20 08:20 Sodium Bicarbonate 650 Mg Tab PO Not Given TID JUAN DANIEL Sodium Chloride 10 ml 08/02/20 10:00 08/04/20 22:17 Sodium Chloride 0.9% 10 Ml Flush Syringe IV 10 ml BID JUAN DANIEL Administration Sodium Chloride 10 ml 08/02/20 01:56 Sodium Chloride 0.9% 10 Ml Flush Syringe IV PRN PRN LINE FLUSH Nutrition/Malnutrition Assess - Dietary Evaluation Nutrition/Malnutrition Findings: Nutrition Notes Start: 08/02/20 10:53 Freq: Status: Active Protocol: Document 08/02/20 10:53 AL (Rec: 08/02/20 11:05 AL [id number]) Co-Sign 08/02/20 10:53 LP Nutrition Notes Need for Assessment generated from: MD Order,Education Initial or Follow up Assessment Current Diagnosis CKD (stage V CKD),Diabetes, Hypertension Other Pertinent Diagnosis Intractable N/V, abd pain Current Diet Cardiac/Consistent Carbohydrate Renal Labs/Tests BUN 61 Cr 10 Pertinent Medications Zofran .45 NS 100 ml/hr Height 6 ft 1 in Weight 65.9 kg [place] Body Weight (kg) 83.63 BMI 19.1 Weight change and time frame Pt wt in chart is an error. Pt wt is 145 lbs, not 145 kg. Pt reports wt loss of 5% (9 lbs) in past 2-3 days. Weight Status Appropriate Subjective/Other Information MD order for diet education. Pt reports wt. loss of 8-9 lbs in 2 days. He is afraid to eat d/t N/V. Breakfast eaten at <25%. Pt. requests ONS due to poor appetite. Diet education on N/V, CHO Counting , and Heart Health well received by patient. Percent of energy/protein needs met: 25%/29% Burn Absent Trauma Absent GI Symptoms Nausea,Vomiting Food Allergy No Current % PO Negligible Minimum of two criteria Yes Energy Intake (severe) < or equal to 50% Estimated Energy Requirement > or equal to 5 days Interpretation of Weight Loss (severe) >2% in 1 week #3 Nutrition Diagnosis Inadequate oral intake Etiology Loss of appetite, N/V As Evidenced by Signs and Symptoms pt meets 25%/29% estimated energy/protein needs PO #2 Nutrition Diagnosis Malnutrition Etiology N/V and loss of appetite As Evidenced by Signs and Symptoms Pt consumed <50% of estimated energy needs and has wt loss of 5% in 2-3 days. #1 Nutrition Diagnosis Food and nutrition-related knowledge deficit Etiology DM, N/V As Evidenced by Signs and Symptoms pt. did not know about nutrition therapy for DM and N /V. Is patient on ventilator? No Is Patient Ambulatory and/or Out of Bed Yes REE-([facility]-ambulatory/OOB) [ [id number]] Calculation Used for Recommendations [facility] Additional Notes Pro: 79-99 g (1.2-1.5 g/kg) Fluid: 1 ml/kcal Nutrition Intervention Change Diet Order: Continue current order Add Supplement/Snack (indicate name/kcal Glucerna [place] & Vanilla /protein ) BID Provides kCal: 440 Provides Protein (gm) 20 Teaching Recipient Patient Learning Readiness Good Teaching Methods Discussion,Handout Response to Teaching Return demonstration,Verbalize understanding Education Handouts Provided Carb Counting for People with Diabetes Nausea/Vomiting Nutrition Therapy Barriers to Learning No Barriers RD phone number provided Yes Patient aware of follow up options Yes Goal #1 Meet 75% of estimated energy needs via diet & ONS Goal #2 ONS tolerance. Goal #3 Wt gain/maintenence Anticipated Discharge Needs: Renal/Consistenc CHO diet Follow-Up By: 08/05/20 Additional Comments F/U for intakes and ONS tolerance.
[2020-08-05] MEDS: fentaNYL 100 MCG/2 ML INJ ONE ×3 (13:01→13:50)
[2020-08-05] MEDS: MIDAZOLAM 2 MG/2 ML INJ ONE ×3 (13:01→13:50)
[2020-08-05] MEDS: LIDOCAINE 1%/EPINEPHRINE 1:100,000 VIAL (20 ML) INFILTRATI ONE ×2 (13:02→13:38)
[2020-08-05] MEDS: FERROUS SULFATE 325 MG TAB PO SCH (13:21)
[2020-08-05] MEDS: FAMOTIDINE 20 MG TAB PO SCH ×2 (13:21→22:29)
[2020-08-05] MEDS: DOCUSATE SODIUM 100 MG CAP PO SCH (13:21)
[2020-08-05] MEDS: CALCITRIOL 0.25 MCG CAP PO SCH (13:22)
[2020-08-05] MEDS ORDERED: ceFAZolin/Water 2 GM/20 ML 2 GM/20 ML SYRINGE IV ONE (13:33)
[2020-08-05] MEDS ORDERED: LIDOCAINE 1%/EPINEPHRINE 1:100,000 VIAL (20 ML) INFILTRATI ONE (13:48)
[2020-08-05] MEDS: HEPARIN 10,000 UNITS/10 ML VIAL ONE ×4 (13:50→17:32)
--- NOTE | 2020-08-05 14:15 | Operative Report ---
Operative Report Operative Report: EXAM: 1. Ultrasound-guided puncture of the right internal jugular vein 2. Fluoroscopic-guided placement of a right internal jugular tunneled cuffed hemodialysis catheter. DATE: 08/05/2020 INDICATION: End-stage renal disease requiring hemodialysis access MEDICATIONS: Please see nursing report for full details. DEVICES: 23 cm tip to cuff 15 Fr dual lumen hemodialysis catheter PROGRAM ENGAGEMENT DIRECTOR: OLEGARIO DE GUZMAN MD CONTRAST: None PROCEDURE: The risks, benefits, and alternatives were discussed and informed consent was obtained. The patient was transported to the angiography suite in satisfactory/stable condition and was transported onto the angiography table. The patient's right internal jugular vein was assessed with ultrasound and determined to be patent prior to procedure. The patient was prepped and draped in a sterile fashion. The puncture site was anesthetized. Under sonographic guidance, the right internal jugular vein was punctured with a 21-gauge micropuncture needle and a 0.018 inch wire was advanced into the inferior vena cava. The micropuncture needle was exchanged for a transitional dilator and the wire was retracted into the right atrium to nestor intravascular distance. The wire and inner dilator were removed. 0.035 inch wire was advanced through the transitional dilator into the inferior vena cava. A suitable exit site was identified on the patient's chest inferior and lateral to the venotomy. The site was anesthetized with local anesthetic and the track was anesthetized. Dermatotomy was made. The PermCath was attached to the tunneling device and tunneled between the dermatotomy to the venotomy. Over the 0.035 inch wire, serial dilatation was performed with ultimate placement of a peel-away sheath. The catheter was advanced through the peel- away sheath after the wire was removed and positioned centrally under fluoroscopic guidance. The peel-away sheath was removed. 4-0 Vicryl suture was used to close the venotomy and Dermabond was then applied. 2-0 Ethilon suture was used to secure the catheter at the dermatotomy. The catheter was charged with 1000 units/mL of heparin per milliliter of space. Sterile dressing and Biopatch applied. The patient was transferred from the angiography suite back to the floor in stable condition. FINDINGS: 1. Excellent flow was obtained through the dialysis catheter with 20 mL syringes. 2. The catheter tip is in the right atrium. IMPRESSION: 1. Successful ultrasound and fluoroscopically guided placement of a right internal jugular tunneled cuffed hemodialysis catheter.
[2020-08-05] MEDS: oxyCODONE /ACETAMINOPHEN 5-325MG TAB PO PRN (14:34)
[2020-08-05] MEDS ORDERED: HYDROmorphone 2 MG/1 ML INJ IV ONE (17:36)
[2020-08-05] MEDS ORDERED: HYDROmorphone 1 MG/1 ML INJ IV ONE (22:08)
[2020-08-05] MEDS: carvediloL 25 MG TAB PO SCH (22:29)
[2020-08-06] MEDS: oxyCODONE /ACETAMINOPHEN 5-325MG TAB PO PRN ×3 (06:21→19:46)
[2020-08-06 07:47] LABS: Hematocrit 24.6 % (35.5-45.6); Hemoglobin 7.9 gm/dl (11.8-15.2); Mean Corpuscular HGB Conc 32 % (32-34); Mean Corpuscular Volume 86 fl (84-94); Platelet Count 169 K/mm3 (140-440); Red Blood Count 2.85 M/mm3 (3.65-5.03); Red Cell Distribution Width 15.9 % (13.2-15.2)
--- NOTE | 2020-08-06 09:21 | Progress Note ---
Assessment and Plan Impression: * End stage renal disease * Uremia * Metabolic acidosis * Hypertension * Type II diabetes mellitus Plan: * Status post right IJ PermCath placement 08/05/2020 * Patient had uneventful hemodialysis yesterday. Increase dialysis time to 2- 1/2 hours for today and tomorrow * Switch over to 3 days a week after that. * Vascular surgery consultation noted * Continue NaBicarb TID * GI recommendations noted - "suspect most symptoms due to uremia" * Continue antiHTN medications * Dose medications for renal function * Consult case management for outpatient dialysis arrangement * Liberalize diet Subjective Date of service: 08/06/20 Interval history: Patient had a PermCath placed yesterday and had uneventful dialysis following that. His appetite is improving. Patient asking for more protein. Denies any shortness of breath. Objective - Vital Signs Vital signs: Vital Signs - 12hr 08/05/20 08/05/20 08/06/20 21:57 23:00 04:15 Temperature 99.5 F 98.5 F Pulse Rate 92 H 78 Pulse Rate [ 92 H From Monitor] Respiratory 18 18 20 Rate Blood Pressure 123/68 147/84 O2 Sat by Pulse 97 97 99 Oximetry - General Appearance General appearance: well-developed, well-nourished, appears stated age EENT: PERRL, mucous membranes moist Neck: no JVD, no thyromegaly, no carotid bruit, supple, other (Right IJ PermCath in place. Dressing seems to be bloodstained) Respiratory: Present: Clear to Ascultation Cardiology: regular, normal heart rate Gastrointestinal: normal, normoactive bowel sounds Integumentary: no rash, other (No edema) - Lab 08/06/20 07:15 08/06/20 07:15 Most recent lab results Calcium 7.0 mg/dL (8.4-10.2) L 08/06/20 07:15 Magnesium 2.00 mg/dL (1.7-2.3) 08/01/20 21:49 Medications & Allergies - Medications Allergies/Adverse Reactions: Allergies No Known Allergies Allergy (Verified 08/04/20 18:36) Home Medications: Home Medications Medication Instructions Recorded Confirmed Last Taken Type AtorvaSTATin [Lipitor] 40 mg PO QHS 05/05/19 08/02/20 Unknown History NIFEdipine XL [Procardia Xl] 90 mg PO QDAY #90 tablet 05/07/19 08/02/20 Unknown Rx carvediloL [Coreg] 25 mg PO QHS #90 tablet 05/07/19 08/02/20 Unknown Rx carvediloL [Coreg] 37.5 mg PO QAM #90 tablet 05/07/19 08/02/20 Unknown Rx Insulin Lispro [Humalog] 100 unit SQ BID 08/02/20 08/02/20 Unknown History labetaloL [Labetalol 100mg TAB] 100 mg PO BID 08/02/20 08/02/20 Unknown History Active Medications: Generic Name Dose Route Start Last Admin Trade Name Freq PRN Reason Stop Dose Admin Acetaminophen 650 mg 08/02/20 01:56 Acetaminophen 325 Mg Tab PO Q4H PRN Pain MILD(1-3)/Fever >100.5/DIA Albuterol 2.5 mg 08/04/20 06:55 Albuterol 2.5 Mg/3 Ml Nebu IH PRN PRN Shortness Of Breath Calcitriol 0.25 mcg 08/02/20 10:00 08/05/20 13:22 Calcitriol 0.25 Mcg Cap PO Not Given QDAY JUAN DANIEL Carvedilol 37.5 mg 08/02/20 10:00 08/05/20 10:23 Carvedilol 12.5 Mg Tab PO 37.5 mg QAM JUAN DANIEL Administration Carvedilol 25 mg 08/02/20 22:00 08/05/20 22:29 Carvedilol 25 Mg Tab PO 25 mg QHS JUAN DANIEL Administration Dextrose 50 ml 08/02/20 01:56 08/04/20 08:19 Dextrose 50% In Water (25gm) 50 Ml Syringe IV 50 ml Q30MIN PRN Administration Hypoglycemia Protocol Docusate Sodium 100 mg 08/03/20 19:00 08/05/20 13:21 Docusate Sodium 100 Mg Cap PO Not Given DAILY JUAN DANIEL Famotidine 20 mg 08/02/20 10:00 08/05/20 22:29 Famotidine 20 Mg Tab PO 20 mg BID JUAN DANIEL Administration Ferrous Sulfate 325 mg 08/02/20 10:00 08/05/20 13:21 Ferrous Sulfate 325 Mg Tab PO Not Given QDAY JUAN DANIEL Hydralazine HCl 10 mg 08/02/20 03:00 08/02/20 06:17 Hydralazine 20 Mg/1 Ml Inj IV 10 mg Q6HR PRN Administration Blood Pressure Sodium Chloride 100 mls @ 999 mls/hr 08/04/20 17:21 Nacl 0.9% IV LISA PRN Hypotension Insulin Human Lispro 0 unit 08/02/20 07:30 08/05/20 22:29 Insulin Lispro 100 Unit/Ml SUB-Q 4 unit ACHS JUAN DANIEL Administration Protocol Metoclopramide HCl 5 mg 08/02/20 02:14 08/02/20 10:02 Metoclopramide 10 Mg Tab PO 5 mg QID PRN Administration Nausea Metoclopramide HCl 5 mg 08/02/20 02:15 Metoclopramide 10 Mg/2 Ml Inj IV Q6H PRN Nausea And Vomiting Nifedipine 90 mg 08/02/20 10:00 08/05/20 10:23 Nifedipine Xl 90 Mg Tab PO 90 mg QDAY JUAN DANIEL Administration Ondansetron HCl 4 mg 08/02/20 17:17 08/02/20 18:11 Ondansetron 4 Mg/2 Ml Inj IV 4 mg Q4H PRN Administration Nausea And Vomiting Oxycodone/Acetaminophen 1 tab 08/04/20 07:52 08/06/20 06:21 Oxycodone /Acetaminophen 5-325mg Tab PO 1 tab Q6H PRN Administration Pain, Moderate (4-6) Phenol 1 spray 08/02/20 01:54 Phenol 1.4% 177 Ml Bottle MM PRN PRN Sore Throat Polyethylene Glycol 17 gm 08/03/20 18:29 08/03/20 19:34 Polyethylene Glycol 3350 17 Gm Powder PO 17 gm BID PRN Administration constipation Simethicone 80 mg 08/02/20 10:00 08/02/20 10:03 Simethicone 80 Mg Chew Tab PO 80 mg Q6H PRN Administration Gas pain Sodium Bicarbonate 1,300 mg 08/03/20 14:00 08/05/20 22:28 Sodium Bicarbonate 650 Mg Tab PO 1,300 mg TID JUAN DANIEL Administration Sodium Chloride 10 ml 08/02/20 10:00 08/05/20 22:30 Sodium Chloride 0.9% 10 Ml Flush Syringe IV 10 ml BID JUAN DANIEL Administration Sodium Chloride 10 ml 08/02/20 01:56 Sodium Chloride 0.9% 10 Ml Flush Syringe IV PRN PRN LINE FLUSH
[2020-08-06] MEDS: FERROUS SULFATE 325 MG TAB PO SCH (09:31)
[2020-08-06] MEDS: carvediloL 12.5 MG TAB PO SCH (09:31)
[2020-08-06] MEDS: CALCITRIOL 0.25 MCG CAP PO SCH (09:31)
[2020-08-06] MEDS: NIFEdipine XL 90 MG TAB PO SCH (09:32)
[2020-08-06] MEDS: FAMOTIDINE 20 MG TAB PO SCH ×2 (09:32→21:57)
[2020-08-06] MEDS: SODIUM BICARBONATE 650 MG TAB PO SCH ×3 (09:32→21:56)
[2020-08-06] MEDS: INSULIN LISPRO 100 UNIT/ML SUB-Q SCH ×4 (09:32→21:57)
[2020-08-06] MEDS: DOCUSATE SODIUM 100 MG CAP PO SCH (09:36)
--- NOTE | 2020-08-06 11:52 | Progress Note ---
Assessment and Plan Assessment and plan: 44-year-old male with past medical history of diabetes hypertension and renal disease was brought to the emergency room with complaints of abdominal pain which is in his left upper and epigastric region 12/22. Patient states is been going on for 1 week. Patient states that he believes he is in DKA. Patient states he is also having nausea and vomiting. Patient states he cannot stop vomiting. Patient states he has had anything solid or fluids for about 4 days. Patient states he is compliant with his insulin. Patient states he sees a workforce development assistant for chronic kidney disease stage IV. Patient states he is not on dialysis. Patient states he does not know what his baseline creatinine is. Patient states the pain is better with rest and worse with vomiting and movement. Patient denies blood in his vomitus. In the emergency room patient's BUN is [address] scan of the abdomen showed no acute intra-abdominal pathology 08/03/2020 -Patient was seen by nephrology and patient agreed with dialysis and will have permacath placement on Wednesday. Nephrology consult appreciated. -Abdominal pain and nausea is due to uremia, will continue symptomatic management -Diabetes mellitus uncontrolled, will check A1c, continue sliding scale and added 10 units of Lantus. A1c is 7.7 -Hypertension controlled. -Patient was evaluated by GI and said the abdominal pain is due to uremia and signed off. 08/04/2020 -Patient is followed with nephrology and will have dialysis catheter placement tomorrow. -Abdominal pain is getting better. -Patient's blood sugar was low and will stop lantus. 08/05: Reviewed nephrology documentation patient is now in end-stage renal disease designation admitted with uremia. We will continue current management. Patient is for permacath today and will initiate hemodialysis he does admit to recurrent admissions to the hospital in hopes this will make him feel better but he still apprehensive about initiation of dialysis although states that he will do it now to follow-up with his doctors outpatient for second opinion. GI recommends."suspect most symptoms due to uremia" 08/06: Patient is status post right IJ PermCath placement 08/05/2020. Undergoing dialysis will monitor improvement in electrolytes. Discussed with case m izzy today awaiting dialysis chair time. Also discussed with workforce development assistant continue current management will be dialyzed again today and tomorrow. * End stage renal disease * Uremia * Metabolic acidosis * Hypertension * Type II diabetes mellitus * Intractable vomiting with nausea secondary to uremia * Abdominal pain * DVT and GI prophylaxis History Interval history: Patient seen and examined resting comfortably no new complaints status post permacath placement. Hospitalist Physical - Physical exam Narrative exam: VITAL SIGNS: Reviewed. GENERAL: The patient appears normally developed, Vital signs as documented. HEAD: No signs of head trauma. EYES: Pupils are equal. Extraocular motions intact. EARS: Hearing grossly intact. MOUTH: Oropharynx is normal. NECK: No adenopathy, no JVD. CHEST: Chest with clear breath sounds bilaterally. No wheezes, rales, or rhonchi. CARDIAC: Regular rate and rhythm. S1 and S2, without murmurs, gallops, or rubs. VASCULAR: No Edema. Peripheral pulses normal and equal in all extremities. ABDOMEN: Soft, non tender and non distended. No rebound or guarding, and no masses palpated. Bowel Sounds normal. MUSCULOSKELETAL: Good range of motion of all major joints. Extremities without clubbing, cyanosis or edema. NEUROLOGIC EXAM: Alert and oriented x 3 No focal sensory or strength deficits. Speech normal. Follows commands. PSYCHIATRIC: Mood normal. SKIN: detail exam as documented in skin assessment - Constitutional Vitals: Temp Pulse Resp BP Pulse Ox 98.5 F 78 20 183/81 99 08/06/20 04:15 08/06/20 04:15 08/06/20 04:15 08/06/20 09:31 08/06/20 04:15 General appearance: Present: no acute distress Results - Labs CBC & Chem 7: 08/06/20 07:15 08/06/20 07:15 Labs: Laboratory Last Values WBC 6.8 K/mm3 (4.5-11.0) 08/06/20 07:15 RBC 2.85 M/mm3 (3.65-5.03) L 08/06/20 07:15 Hgb 7.9 gm/dl (11.8-15.2) L 08/06/20 07:15 Hct 24.6 % (35.5-45.6) L 08/06/20 07:15 MCV 86 fl (84-94) 08/06/20 07:15 MCH 28 pg (28-32) 08/06/20 07:15 MCHC 32 % (32-34) 08/06/20 07:15 RDW 15.9 % (13.2-15.2) H 08/06/20 07:15 Plt Count 169 K/mm3 (140-440) 08/06/20 07:15 Lymph % (Auto) 41.9 % (13.4-35.0) H 08/03/20 05:09 [place] % (Auto) 5.8 % (0.0-7.3) 08/03/20 05:09 Eos % (Auto) 0.5 % (0.0-4.3) 08/03/20 05:09 Baso % (Auto) 0.7 % (0.0-1.8) 08/03/20 05:09 Lymph # (Auto) 4.1 K/mm3 (1.2-5.4) 08/03/20 05:09 [place] # (Auto) 0.6 K/mm3 (0.0-0.8) 08/03/20 05:09 Eos # (Auto) 0.1 K/mm3 (0.0-0.4) 08/03/20 05:09 Baso # (Auto) 0.1 K/mm3 (0.0-0.1) 08/03/20 05:09 Seg Neutrophils % 51.1 % (40.0-70.0) 08/03/20 05:09 Seg Neutrophils # 5.0 K/mm3 (1.8-7.7) 08/03/20 05:09 PT 13.1 Sec. (12.2-14.9) 08/01/20 21:49 INR 1.01 (0.87-1.13) 08/01/20 21:49 APTT 28.0 Sec. (24.2-36.6) 08/01/20 21:49 VBG pH 7.385 (7.320-7.420) 08/01/20 21:49 Sodium 133 mmol/L (137-145) L 08/06/20 07:15 Potassium 4.3 mmol/L (3.6-5.0) 08/06/20 07:15 Chloride 101.5 mmol/L (98-107) 08/06/20 07:15 Carbon Dioxide 21 mmol/L (22-30) L 08/06/20 07:15 Anion Gap 15 mmol/L 08/06/20 07:15 BUN 36 mg/dL (9-20) H 08/06/20 07:15 Creatinine 7.0 mg/dL (0.8-1.3) H 08/06/20 07:15 Estimated GFR 10 ml/min 08/06/20 07:15 BUN/Creatinine Ratio 5 % 08/06/20 07:15 Glucose 245 mg/dL (75-100) H 08/06/20 07:15 POC Glucose 243 mg/dL (70-105) H 08/06/20 07:42 Hemoglobin A1c 7.7 % (4-6) H 08/03/20 05:09 Lactic Acid 1.30 mmol/L (0.7-2.0) 08/01/20 21:49 Calcium 7.0 mg/dL (8.4-10.2) L 08/06/20 07:15 Magnesium 2.00 mg/dL (1.7-2.3) 08/01/20 21:49 Total Bilirubin 0.30 mg/dL (0.1-1.2) 08/01/20 19:36 AST 22 units/L (5-40) 08/01/20 19:36 ALT 43 units/L (7-56) 08/01/20 19:36 Alkaline Phosphatase 158 units/L (35-129) H 08/01/20 19:36 Total Protein 7.7 g/dL (6.3-8.2) 08/01/20 19:36 Albumin 4.3 g/dL (3.9-5) 08/01/20 19:36 Albumin/Globulin Ratio 1.3 % 08/01/20 19:36 Lipase 20 units/L (13-60) 08/01/20 19:36 Urine Color Straw (Yellow) 08/02/20 03:28 Urine Turbidity Clear (Clear) 08/02/20 03:28 Urine pH 5.0 (5.0-7.0) 08/02/20 03:28 Ur Specific [place] 1.007 (1.003-1.030) 08/02/20 03:28 Urine Protein >500 mg/dL (Negative) 08/02/20 03:28 Urine Glucose (UA) >=500 mg/dL (Negative) 08/02/20 03:28 Urine Ketones Neg mg/dL (Negative) 08/02/20 03:28 Urine Blood Sm (Negative) 08/02/20 03:28 Urine Nitrite Neg (Negative) 08/02/20 03:28 Urine Bilirubin Neg (Negative) 08/02/20 03:28 Urine Urobilinogen < 2.0 mg/dL (<2.0) 08/02/20 03:28 Ur Leukocyte Esterase Neg (Negative) 08/02/20 03:28 Urine WBC (Auto) 2.0 /HPF (0.0-6.0) 08/02/20 03:28 Urine RBC (Auto) 2.0 /HPF (0.0-6.0) 08/02/20 03:28 Urine Bacteria (Auto) 1+ /HPF (Negative) 08/02/20 03:28 Urine Yeast (Budding) 1+ /HPF 08/02/20 03:28 Coronavirus (PCR) Negative (Negative) 08/03/20 Unknown Hepatitis A IgM Ab Non-reactive (NonReactive) 08/02/20 15:25 Hep Bs Antigen Non-reactive (Negative) 08/02/20 15:25 Hep B Core IgM Ab Non-reactive (NonReactive) 08/02/20 15:25 Hepatitis C Antibody Non-reactive (NonReactive) 08/02/20 15:25 [place]/IV: Voiding Method Toilet Active Medications - Current Medications Current Medications: Generic Name Dose Route Start Last Admin Trade Name Freq PRN Reason Stop Dose Admin Acetaminophen 650 mg 08/02/20 01:56 Acetaminophen 325 Mg Tab PO Q4H PRN Pain MILD(1-3)/Fever >100.5/DIA Albuterol 2.5 mg 08/04/20 06:55 Albuterol 2.5 Mg/3 Ml Nebu IH PRN PRN Shortness Of Breath Calcitriol 0.25 mcg 08/02/20 10:00 08/06/20 09:31 Calcitriol 0.25 Mcg Cap PO 0.25 mcg QDAY JUAN DANIEL Administration Carvedilol 37.5 mg 08/02/20 10:00 08/06/20 09:31 Carvedilol 12.5 Mg Tab PO 37.5 mg QAM JUAN DANIEL Administration Carvedilol 25 mg 08/02/20 22:00 08/05/20 22:29 Carvedilol 25 Mg Tab PO 25 mg QHS JUAN DANILE Administration Dextrose 50 ml 08/02/20 01:56 08/04/20 08:19 Dextrose 50% In Water (25gm) 50 Ml Syringe IV 50 ml Q30MIN PRN Administration Hypoglycemia Protocol Docusate Sodium 100 mg 08/03/20 19:00 08/06/20 09:36 Docusate Sodium 100 Mg Cap PO 100 mg DAILY JUAN DANIEL Administration Famotidine 20 mg 08/02/20 10:00 08/06/20 09:32 Famotidine 20 Mg Tab PO 20 mg BID JUAN DANIEL Administration Ferrous Sulfate 325 mg 08/02/20 10:00 08/06/20 09:31 Ferrous Sulfate 325 Mg Tab PO 325 mg QDAY JUAN DANIEL Administration Hydralazine HCl 10 mg 08/02/20 03:00 08/02/20 06:17 Hydralazine 20 Mg/1 Ml Inj IV 10 mg Q6HR PRN Administration Blood Pressure Sodium Chloride 100 mls @ 999 mls/hr 08/04/20 17:21 Nacl 0.9% IV LISA PRN Hypotension Insulin Human Lispro 0 unit 08/02/20 07:30 08/06/20 09:32 Insulin Lispro 100 Unit/Ml SUB-Q 3 unit ACHS JUAN DANIEL Administration Protocol Metoclopramide HCl 5 mg 08/02/20 02:14 08/02/20 10:02 Metoclopramide 10 Mg Tab PO 5 mg QID PRN Administration Nausea Metoclopramide HCl 5 mg 08/02/20 02:15 Metoclopramide 10 Mg/2 Ml Inj IV Q6H PRN Nausea And Vomiting Nifedipine 90 mg 08/02/20 10:00 08/06/20 09:32 Nifedipine Xl 90 Mg Tab PO 90 mg QDAY JUAN DANIEL Administration Ondansetron HCl 4 mg 08/02/20 17:17 08/02/20 18:11 Ondansetron 4 Mg/2 Ml Inj IV 4 mg Q4H PRN Administration Nausea And Vomiting Oxycodone/Acetaminophen 1 tab 08/04/20 07:52 08/06/20 06:21 Oxycodone /Acetaminophen 5-325mg Tab PO 1 tab Q6H PRN Administration Pain, Moderate (4-6) Phenol 1 spray 08/02/20 01:54 Phenol 1.4% 177 Ml Bottle MM PRN PRN Sore Throat Polyethylene Glycol 17 gm 08/03/20 18:29 08/03/20 19:34 Polyethylene Glycol 3350 17 Gm Powder PO 17 gm BID PRN Administration constipation Simethicone 80 mg 08/02/20 10:00 08/02/20 10:03 Simethicone 80 Mg Chew Tab PO 80 mg Q6H PRN Administration Gas pain Sodium Bicarbonate 1,300 mg 08/03/20 14:00 08/06/20 09:32 Sodium Bicarbonate 650 Mg Tab PO 1,300 mg TID JUAN DANIEL Administration Sodium Chloride 10 ml 08/02/20 10:00 08/06/20 09:33 Sodium Chloride 0.9% 10 Ml Flush Syringe IV 10 ml BID JUAN DANIEL Administration Sodium Chloride 10 ml 08/02/20 01:56 Sodium Chloride 0.9% 10 Ml Flush Syringe IV PRN PRN LINE FLUSH Nutrition/Malnutrition Assess - Dietary Evaluation Nutrition/Malnutrition Findings: Nutrition Notes Start: 08/02/20 10:53 Freq: Status: Active Protocol: Document 08/05/20 13:39 AL (Rec: 08/05/20 14:03 AL [id number]) Co-Sign 08/05/20 13:39 LP Nutrition Notes Initial or Follow up Reassessment Current Diagnosis CKD (stage V CKD),Diabetes, Hypertension Other Pertinent Diagnosis on HD, Intractable N/V, abd pain Current Diet NPO Labs/Tests Na 132 BUN 58 Cr 9.5 BG 208 A1C 7.7 Pertinent Medications Humalog NS at 100 ml Height 6 ft 1 in Weight 78.5 kg [place] Body Weight (kg) 83.63 BMI 22.8 Weight Status Appropriate Subjective/Other Information F/U for PO and ONS intakes. Pt diet status is currently NPO and does not have a diet ordered due to vascath operation. Pt has plans to start HD. Percent of energy/protein needs met: 0%/0% Burn Absent Trauma Absent GI Symptoms Nausea,Vomiting Food Allergy No Current % PO Negligible Minimum of two criteria Yes Energy Intake (severe) < or equal to 50% Estimated Energy Requirement > or equal to 5 days Interpretation of Weight Loss (severe) >2% in 1 week #3 Nutrition Diagnosis Inadequate oral intake As Evidenced by Signs and Symptoms Pt now is NPO. Diagnosis Progress(for reassessment Worsened documentation) #2 Nutrition Diagnosis Malnutrition Diagnosis Progress(for reassessment Continues documentation) #1 Nutrition Diagnosis Food and nutrition-related knowledge deficit As Evidenced by Signs and Symptoms Diet education provided. Diagnosis Progress(for reassessment Resolved documentation) Is patient on ventilator? No Is Patient Ambulatory and/or Out of Bed Yes REE-([facility]-ambulatory/OOB) [ 2234.544 [id number]] Calculation Used for Recommendations [facility] Additional Notes Pro: >94 g (>1.2 g/kg) Fluid: 1 ml/kcal Nutrition Intervention Change Diet Order: Advance diet when medically feasible. Nutrition Support: If PO intolerance continues, recommend Nepro 1.8 at 50 ml/ hr Flush 200 ml q4h Kcal 2,160 Protein (gm) 97 Fluid (mL) 873 Add Supplement/Snack (indicate name/kcal d/c /protein ) Goal #1 Diet advancement to meet nutrient needs Anticipated Discharge Needs: Renal/Consistent Carbohydrate Follow-Up By: 08/07/20 Additional Comments F/U for diet advancement or TF consult
--- NOTE | 2020-08-06 17:13 | Vascular Lab Report ---
DOPPLER ULTRASOUND UPPER EXTREMITY VENOUS MAPPING, BILATERAL INDICATION / CLINICAL INFORMATION: esrd need vein mapping TECHNIQUE: Grayscale, color and spectral Doppler imaging of the venous system of the right and left u pper extremities was performed. COMPARISON: None available. FINDINGS: RIGHT UPPER EXTREMITY: Brachial Artery (Diameter, in cm): 0.4 Radial Artery (Diameter, in cm): 0.23 Basilic Vein (Diameter, in cm): - Upper Arm: 0.3 - Mid Arm: 0.22 - Lower Arm: 0.24 - Antecubital: 0.2 - Upper Forearm: 0.22 - Mid Forearm: 0.17 - Distal Forearm: 0.19 Cephalic Vein (Diameter, in cm): - Upper Arm: 0.23 - Mid Arm: 0.14 - Lower Arm: 0.13 - Antecubital: 0.2 - Upper Forearm: 0.13 - Mid Forearm: 0.13 - Distal Forearm: 0.13 LEFT UPPER EXTREMITY: Brachial Artery (Diameter, in cm): 0.5 Radial Artery (Diameter, in cm): 0.2 Basilic Vein (Diameter, in cm): - Upper Arm: 0.32 - Mid Arm: 0.23 - Lower Arm: 0.23 - Antecubital: 0.16 - Upper Forearm: 0.12 - Mid Forearm: 0.12 - Distal Forearm: 0.1 Cephalic Vein (Diameter, in cm): - Upper Arm: 0.12 - Mid Arm: 0.05 - Lower Arm: 0.08 - Antecubital: 0.14 - Upper Forearm: 0.08 - Mid Forearm: 0.09 - Distal Forearm: 0.08 Additional Findings: None. IMPRESSION: 1. Upper extremity venous mapping as above. Signer Name: Kamari Delaney MD Signed: 08/06/2020 5:08 PM Workstation Name: [id number]
[2020-08-06] MEDS ORDERED: MORPHINE 2 MG/1 ML INJ IV PRN (17:14)
[2020-08-06] MEDS: carvediloL 25 MG TAB PO SCH (21:56)
[2020-08-06] MEDS: POLYETHYLENE GLYCOL 3350 17 GM POWDER PO PRN (22:58)
[2020-08-07] MEDS: oxyCODONE /ACETAMINOPHEN 5-325MG TAB PO PRN (01:27)
[2020-08-07] MEDS ORDERED: FLEET ENEMA PR ONE (02:29)
--- NOTE | 2020-08-07 09:01 | Progress Note ---
Assessment and Plan Impression: * End stage renal disease * Uremia * Metabolic acidosis * Hypertension * Type II diabetes mellitus Plan: * Status post right IJ PermCath placement 08/05/2020 * Patient had uneventful hemodialysis yesterday. Patient is scheduled for another dialysis treatment today * Vascular surgery consultation noted * Continue NaBicarb TID * GI recommendations noted - "suspect most symptoms due to uremia" * Continue antiHTN medications * Dose medications for renal function * Liberalize diet * Outpatient dialysis has been arranged at [facility] on TTS schedule at 11:15 AM. * Okay to discharge patient home today after dialysis * Patient advised to present to the dialysis clinic tomorrow at 10:30 AM * He will also need to follow-up with Dr. Oates as outpatient for creation of AV fistula * Spoke with dialysis nurse. Shall plan to get him dialyzed first shift today Subjective Date of service: 08/07/20 Interval history: Patient feels well today denies any shortness of breath. No nausea vomiting or diarrhea. Uneventful hemodialysis yesterday. Objective - Vital Signs Vital signs: Vital Signs - 12hr 08/06/20 08/06/20 08/06/20 21:53 21:56 23:00 Temperature 98.6 F Pulse Rate 87 87 Pulse Rate [ 87 From Monitor] Respiratory 20 20 Rate Blood Pressure 157/93 157/93 O2 Sat by Pulse 98 98 Oximetry 08/07/20 04:21 Temperature 98.5 F Pulse Rate 78 Pulse Rate [ From Monitor] Respiratory 20 Rate Blood Pressure 156/78 O2 Sat by Pulse 97 Oximetry - General Appearance General appearance: well-developed, well-nourished, appears stated age EENT: PERRL, mucous membranes moist Neck: no JVD, no thyromegaly, no carotid bruit, supple, other (Right IJ PermCath in place) Respiratory: Present: Clear to Ascultation Cardiology: regular, normal heart rate, S1S2, no murmurs Gastrointestinal: normal, normoactive bowel sounds Integumentary: no rash, other - Lab 08/06/20 07:15 08/06/20 07:15 Most recent lab results Calcium 7.0 mg/dL (8.4-10.2) L 08/06/20 07:15 Magnesium 2.00 mg/dL (1.7-2.3) 08/01/20 21:49 Medications & Allergies - Medications Allergies/Adverse Reactions: Allergies No Known Allergies Allergy (Verified 08/04/20 18:36) Home Medications: Home Medications Medication Instructions Recorded Confirmed Last Taken Type AtorvaSTATin [Lipitor] 40 mg PO QHS 05/05/19 08/02/20 Unknown History NIFEdipine XL [Procardia Xl] 90 mg PO QDAY #90 tablet 05/07/19 08/02/20 Unknown Rx carvediloL [Coreg] 25 mg PO QHS #90 tablet 05/07/19 08/02/20 Unknown Rx carvediloL [Coreg] 37.5 mg PO QAM #90 tablet 05/07/19 08/02/20 Unknown Rx Insulin Lispro [Humalog] 100 unit SQ BID 08/02/20 08/02/20 Unknown History labetaloL [Labetalol 100mg TAB] 100 mg PO BID 08/02/20 08/02/20 Unknown History Active Medications: Generic Name Dose Route Start Last Admin Trade Name Freq PRN Reason Stop Dose Admin Acetaminophen 650 mg 08/02/20 01:56 Acetaminophen 325 Mg Tab PO Q4H PRN Pain MILD(1-3)/Fever >100.5/DIA Albuterol 2.5 mg 08/04/20 06:55 Albuterol 2.5 Mg/3 Ml Nebu IH PRN PRN Shortness Of Breath Calcitriol 0.25 mcg 08/02/20 10:00 08/06/20 09:31 Calcitriol 0.25 Mcg Cap PO 0.25 mcg QDAY JUAN DANIEL Administration Carvedilol 37.5 mg 08/02/20 10:00 08/06/20 09:31 Carvedilol 12.5 Mg Tab PO 37.5 mg QAM JUAN DANIEL Administration Carvedilol 25 mg 08/02/20 22:00 08/06/20 21:56 Carvedilol 25 Mg Tab PO 25 mg QHS JUAN DANIEL Administration Dextrose 50 ml 08/02/20 01:56 08/04/20 08:19 Dextrose 50% In Water (25gm) 50 Ml Syringe IV 50 ml Q30MIN PRN Administration Hypoglycemia Protocol Docusate Sodium 100 mg 08/03/20 19:00 08/06/20 09:36 Docusate Sodium 100 Mg Cap PO 100 mg DAILY JUAN DANIEL Administration Famotidine 20 mg 08/02/20 10:00 08/06/20 21:57 Famotidine 20 Mg Tab PO 20 mg BID JUAN DANIEL Administration Ferrous Sulfate 325 mg 08/02/20 10:00 08/06/20 09:31 Ferrous Sulfate 325 Mg Tab PO 325 mg QDAY [facility] Administration Hydralazine HCl 10 mg 08/02/20 03:00 08/02/20 06:17 Hydralazine 20 Mg/1 Ml Inj IV 10 mg Q6HR PRN Administration Blood Pressure Sodium Chloride 100 mls @ 999 mls/hr 08/04/20 17:21 Nacl 0.9% IV LISA PRN Hypotension Insulin Human Lispro 0 unit 08/02/20 07:30 08/06/20 21:57 Insulin Lispro 100 Unit/Ml SUB-Q 4 unit ACHS [facility] Administration Protocol Metoclopramide HCl 5 mg 08/02/20 02:14 08/02/20 10:02 Metoclopramide 10 Mg Tab PO 5 mg QID PRN Administration Nausea Metoclopramide HCl 5 mg 08/02/20 02:15 Metoclopramide 10 Mg/2 Ml Inj IV Q6H PRN Nausea And Vomiting Morphine Sulfate 2 mg 08/06/20 17:14 08/06/20 17:57 Morphine 2 Mg/1 Ml Inj IV 2 mg Q6H PRN Administration Pain , Severe (7-10) Nifedipine 90 mg 08/02/20 10:00 08/06/20 09:32 Nifedipine Xl 90 Mg Tab PO 90 mg QDAY [facility] Administration Ondansetron HCl 4 mg 08/02/20 17:17 08/02/20 18:11 Ondansetron 4 Mg/2 Ml Inj IV 4 mg Q4H PRN Administration Nausea And Vomiting Oxycodone/Acetaminophen 1 tab 08/04/20 07:52 08/07/20 01:27 Oxycodone /Acetaminophen 5-325mg Tab PO 1 tab Q6H PRN Administration Pain, Moderate (4-6) Phenol 1 spray 08/02/20 01:54 Phenol 1.4% 177 Ml Bottle MM PRN PRN Sore Throat Polyethylene Glycol 17 gm 08/03/20 18:29 08/06/20 22:58 Polyethylene Glycol 3350 17 Gm Powder PO 17 gm BID PRN Administration constipation Simethicone 80 mg 08/02/20 10:00 08/02/20 10:03 Simethicone 80 Mg Chew Tab PO 80 mg Q6H PRN Administration Gas pain Sodium Bicarbonate 1,300 mg 08/03/20 14:00 08/06/20 21:56 Sodium Bicarbonate 650 Mg Tab PO 1,300 mg TID JUAN DANIEL Administration Sodium Chloride 10 ml 08/02/20 10:00 08/06/20 21:57 Sodium Chloride 0.9% 10 Ml Flush Syringe IV 10 ml BID JUAN DANIEL Administration Sodium Chloride 10 ml 08/02/20 01:56 Sodium Chloride 0.9% 10 Ml Flush Syringe IV PRN PRN LINE FLUSH
[2020-08-07] MEDS: INSULIN LISPRO 100 UNIT/ML SUB-Q SCH ×2 (09:13→13:10)
[2020-08-07] MEDS: SODIUM BICARBONATE 650 MG TAB PO SCH ×2 (09:49→13:10)
[2020-08-07] MEDS: carvediloL 12.5 MG TAB PO SCH (12:59)
[2020-08-07] MEDS: NIFEdipine XL 90 MG TAB PO SCH (13:00)
--- NOTE | 2020-08-07 13:08 | Discharge Summary ---
Providers - Providers Date of Admission: 08/04/20 09:20 Attending physician: SARAH MCCOY MD 08/02/20 01:50 Consult to Physician [CONS] Routine Comment: Consulting Provider: SHYAM SANTIAGO Physician Instructions: Reason For Exam: a-ckd 08/02/20 01:56 Consult to Dietitian/Nutrition [CONS] Routine Physician Instructions: Reason For Exam: Reason for Consult: Diet education 08/02/20 09:29 Consult to Physician [CONS] Routine Comment: Consulting Provider: MATA COYLE Physician Instructions: Reason For Exam: abdominal pain 08/02/20 14:34 Consult to Physician [CONS] Routine Comment: Consulting Provider: OVIDIO POPE Physician Instructions: Reason For Exam: permcath insertion 08/05/20 09:27 Consult to Case Management [CONS] Routine Services Needed at Discharge: Other Notified:: cm Comment:: Outpatient dialysis arrangement Primary care physician: MIXED CROP FARMER Hospitalization Reason for admission: abdominal pain Condition: Stable Hospital course: 44-year-old male with past medical history of diabetes hypertension and renal disease was brought to the emergency room with complaints of abdominal pain whic h is in his left upper and epigastric region 12/22. Patient states is been going on for 1 week. Patient states that he believes he is in DKA. Patient states he is also having nausea and vomiting. Patient states he cannot stop vomiting. Patient states he has had anything solid or fluids for about 4 days. Patient states he is compliant with his insulin. Patient states he sees a e mail system administrator for chronic kidney disease stage IV. Patient states he is not on dialysis. Patient states he does not know what his baseline creatinine is. Patient states the pain is better with rest and worse with vomiting and movement. Patient denies blood in his vomitus. In the emergency room patient's BUN is [address] scan of the abdomen showed no acute intra-abdominal pathology 08/03/2020 -Patient was seen by nephrology and patient agreed with dialysis and will have permacath placement on Wednesday. Nephrology consult appreciated. -Abdominal pain and nausea is due to uremia, will continue symptomatic management -Diabetes mellitus uncontrolled, will check A1c, continue sliding scale and added 10 units of Lantus. A1c is 7.7 -Hypertension controlled. -Patient was evaluated by GI and said the abdominal pain is due to uremia and signed off. 08/04/2020 -Patient is followed with nephrology and will have dialysis catheter placement tomorrow. -Abdominal pain is getting better. -Patient's blood sugar was low and will stop lantus. 08/05: Reviewed nephrology documentation patient is now in end-stage renal disease designation admitted with uremia. We will continue current management. Patient is for permacath today and will initiate hemodialysis he does admit to recurrent admissions to the hospital in hopes this will make him feel better but he still apprehensive about initiation of dialysis although states that he will do it now to follow-up with his doctors outpatient for second opinion. GI recommends."suspect most symptoms due to uremia" 08/06: Patient is status post right IJ PermCath placement 08/05/2020. Undergoing dialysis will monitor improvement in electrolytes. Discussed with case management today awaiting dialysis chair time. Also discussed with e mail system administrator continue current management will be dialyzed again today and tomorrow. 08/07: Patient underwent HD today, chair time for HD to the dialysis clinic tomorrow at 10:30 AM advised to the patient and he will follow-up with Dr. Pope as outpatient for creation of AV fistula He is stable for discharge * End stage renal disease * Uremia * Metabolic acidosis * Hypertension * Type II diabetes mellitus * Intractable vomiting with nausea secondary to uremia * Abdominal pain Disposition: - TO HOME OR SELFCARE Final Discharge Diagnosis (Prints w/discharge instructions): ESRD Time spent for discharge: 35 mins Core Measure Documentation - Palliative Care Palliative Care/ Comfort Measures: Not Applicable - Core Measures Any of the following diagnoses?: none Exam - Physical Exam Narrative exam: VITAL SIGNS: Reviewed. GENERAL: The patient appears normally developed, Vital signs as documented. HEAD: No signs of head trauma. EYES: Pupils are equal. Extraocular motions intact. EARS: Hearing grossly intact. MOUTH: Oropharynx is normal. NECK: No adenopathy, no JVD. CHEST: Chest with clear breath sounds bilaterally. No wheezes, rales, or rhonchi. CARDIAC: Regular rate and rhythm. S1 and S2, without murmurs, gallops, or rubs. VASCULAR: No Edema. Peripheral pulses normal and equal in all extremities. ABDOMEN: Soft, non tender and non distended. No rebound or guarding, and no masses palpated. Bowel Sounds normal. MUSCULOSKELETAL: Good range of motion of all major joints. Extremities without clubbing, cyanosis or edema. NEUROLOGIC EXAM: Alert and oriented x 3 No focal sensory or strength deficits. Speech normal. Follows commands. PSYCHIATRIC: Mood normal. SKIN: detail exam as documented in skin assessment - Constitutional Vitals: Temp Pulse Resp BP Pulse Ox 98.2 F 74 16 202/102 97 08/07/20 09:30 08/07/20 12:59 08/07/20 09:30 08/07/20 12:59 08/07/20 04:21 Plan Activity: advance as tolerated, fall precautions Diet: renal Special Instructions: record daily weights, record daily BP diary Follow up with: PRIMARY CARE, [Primary Care Provider] - 3-5 Days JAISON HARGROVE MD [Staff Physician] - 7 Days OVIDIO POPE MD [Staff Physician] - 7 Days Prescriptions: Docusate Sodium [Colace CAP] 100 mg PO DAILY #30 capsule polyethylene glycoL 3350 [Miralax 3350] 17 gm PO BID PRN #30 powd.pack PRN Reason: constipation Famotidine [Pepcid] 20 mg PO BID #60 tablet oxyCODONE /ACETAMINOPHEN [Percocet 5/325 mg] 1 tab PO Q6H PRN #20 tablet PRN Reason: Pain, Moderate (4-6) Sodium Bicarbonate 1,300 mg PO TID #90 tablet
[2020-08-07] MEDS: DOCUSATE SODIUM 100 MG CAP PO SCH ×2 (13:10→14:58)
[2020-08-07] MEDS: CALCITRIOL 0.25 MCG CAP PO SCH (13:10)
[2020-08-07] MEDS: FAMOTIDINE 20 MG TAB PO SCH (13:11)
[2020-08-07] MEDS: FERROUS SULFATE 325 MG TAB PO SCH (13:13)
[2020-08-07] MEDS: hydrALAZINE 20 MG/1 ML INJ IV PRN (15:47)
[2020-08-07 17:58] VITALS: BP 114/69
== END 2020-08-07 18:20 | disposition home health service (06) | DRG 674 ==
LOC: ED 17:24 → 3A 08-02 01:12 → OBSVTOIN 08-04 09:20
PROVIDERS: ADMIT Hospitalist; ATTEND Internal Medicine
PROC: 0JH63XZ Insertion of Tunneled Vascular Access Device into Chest Subcutaneous Tissue and Fascia, Percutaneous Approach (ICD-10-PCS; principal; 2020-08-05)
PROC: 02H633Z Insertion of Infusion Device into Right Atrium, Percutaneous Approach (ICD-10-PCS; 2020-08-05)
PROC: 5A1D70Z Performance of Urinary Filtration, Intermittent, Less than 6 Hours Per Day (ICD-10-PCS; 2020-08-05)
PROC: 5A1D70Z Performance of Urinary Filtration, Intermittent, Less than 6 Hours Per Day (ICD-10-PCS; 2020-08-06)
PROC: 5A1D70Z Performance of Urinary Filtration, Intermittent, Less than 6 Hours Per Day (ICD-10-PCS; 2020-08-07)
DX: N17.9 Acute kidney failure, unspecified (principal); E87.2 Acidosis; I12.0 Hypertensive chronic kidney disease with stage 5 chronic kidney disease or end stage renal disease; R11.2 Nausea with vomiting, unspecified; R10.84 Generalized abdominal pain; E11.22 Type 2 diabetes mellitus with diabetic chronic kidney disease; N18.6 End stage renal disease; Z79.899 Other long term (current) drug therapy; Z79.4 Long term (current) use of insulin; Z79.891 Long term (current) use of opiate analgesic; Z79.01 Long term (current) use of anticoagulants; Z90.49 Acquired absence of other specified parts of digestive tract; Z89.411 Acquired absence of right great toe
CPT/HCPCS: 36415; 36558; 71046; 74176; 77001; 80048; 80053; 80074; 81001; 82140; 82805; 82962; 83036; 83690; 83735; 85025; 85027; 85610; 85730; 93970; 94640; 96361; 96374; 96375; 96376; G0378; C1750; J0360; J0690; J1170; J1644; J1815; J2250; J2270; J2405; J3010; J7030; J7050; U0003

== ENCOUNTER 2020-10-04 09:42 | Day surgery (SDC) | payer MEDICAID, MEDICARE ==
[~2020-10-04 09:42] MED LIST: BUPIVACAINE/PF (0.5%) 5 MG/1 ML 30 ML VIAL INFILTRATI ONE; HEPARIN 10,000 UNITS/10 ML VIAL ONE; MIDAZOLAM 2 MG/2 ML INJ IV NR; SODIUM CHLORIDE 0.9% 1000 ML 1,000 ML IV SCH; SODIUM CHLORIDE 0.9% 500 ML 500 ML ONE; ceFAZolin/STERILE WATER 2 GM/20 ML SYRINGE IV NR; fentaNYL 100 MCG/2 ML INJ IV PRN; rifAMPin 600 MG VIAL ONE
--- NOTE | 2020-10-04 10:37 | Anesthesia Day of Surgery ---
Anesthesia Day of Surgery - Day of Surgery Patient Examined: Yes Patient H&P Reviewed: Yes Patient is NPO: Yes Beta Blockers: Yes
--- NOTE | 2020-10-04 10:37 | Anesthesia Consultation ---
Anesthesia Consult and Med Hx Date of service: 10/04/20 - Airway Anesthetic Teeth Evaluation: Good, Chipped ROM Head & Neck: Adequate Mental/Hyoid Distance: Adequate Mallampati Class: Class III Intubation Access Assessment: Possibly Difficult - Pre-Operative Health Status ASA Pre-Surgery Classification: ASA3 Proposed Anesthetic Plan: MAC Nerve Block: supraclavicular - Pulmonary Hx Smoking: Yes (occasional cigars) Hx Respiratory Symptoms: No - Cardiovascular System Hx Hypertension: Yes (took coreg this morning. will give home dose nifedipine.) Hx Heart Attack/AMI: No Hx Percutaneous Transluminal Coronary Angioplasty (PTCA): No Hx Cardia Arrhythmia: No - Central Nervous System CVA: No - Endocrine Hx End Stage Renal Disease: Yes (last HD 10/03/20) Hx Liver Disease: No Hx Insulin Dependent Diabetes: Yes (took usual nighttime dose insulin last night) Hx Thyroid Disease: No - Other Systems Hx Obesity: No - Additional Comments Anesthesia Medical History Comments: No hx anesthetic complications.
[2020-10-04] MEDS ORDERED: SODIUM CHLORIDE 0.9% 1000 ML 1,000 ML IV SCH (11:00)
[2020-10-04] MEDS ORDERED: MIDAZOLAM 2 MG/2 ML INJ IV NR (11:00)
[2020-10-04] MEDS: INSULIN REGULAR, HUMAN 100 UNITS/1 ML IV ONE ×2 (11:05)
[2020-10-04 11:06] LABS: Hematocrit 38.4 % (35.5-45.6); Hemoglobin 11.9 gm/dl (11.8-15.2); Mean Corpuscular HGB Conc 31 % (32-34); Mean Corpuscular Volume 91 fl (84-94); Platelet Count 212 K/mm3 (140-440); Red Blood Count 4.23 M/mm3 (3.65-5.03); Red Cell Distribution Width 16.9 % (13.2-15.2)
[2020-10-04 11:27] LABS: Calcium 7.9 mg/dL (8.4-10.2)
[2020-10-04] MEDS ORDERED: NIFEdipine XL 90 MG TAB PO SCH (11:30)
[2020-10-04] MEDS ORDERED: HEPARIN 10,000 UNIT/1 ML VIAL IV ONE (11:31)
[2020-10-04] MEDS ORDERED: LIDOCAINE (2%) 20 MG/1 ML VIAL 20 ML MDV INFILTRATI ONE (12:07)
[2020-10-04] MEDS ORDERED: BUPIVACAINE/PF (0.5%) 5 MG/1 ML 30 ML VIAL INFILTRATI ONE ×2 (12:07→13:35)
[2020-10-04] MEDS ORDERED: SODIUM CHLORIDE 0.9% 250ML 250 ML ONE (12:14)
[2020-10-04] MEDS ORDERED: SODIUM CHLORIDE 0.9% 500 ML IVPB IRRIGATION ONE (13:19)
[2020-10-04] MEDS ORDERED: HEPARIN 10,000 UNITS/10 ML VIAL IR ONE (13:19)
[2020-10-04] MEDS ORDERED: SODIUM CHLORIDE 0.9% IRR 1,500 ML BOTTLE IR ONE (13:20)
[2020-10-04] MEDS ORDERED: MIDAZOLAM 2 MG/2 ML INJ ONE (13:35)
[2020-10-04] MEDS ORDERED: SODIUM CHLORIDE 0.9% 250 ML IVPB IR ONE (13:36)
[2020-10-04] MEDS ORDERED: rifAMPin 600 MG VIAL IV ONE (13:37)
[2020-10-04] MEDS ORDERED: fentaNYL 100 MCG/2 ML INJ ONE (13:37)
--- NOTE | 2020-10-04 14:43 | Short Stay Summary ---
Short Stay Documentation Date of service: 10/04/20 Narrative H&P: See H&P - History H&P: obtained from office - Allergies and Medications Current Medications: Allergies No Known Allergies Allergy (Verified 09/25/20 15:08) Home Medications Medication Instructions Recorded Confirmed Last Taken Type NIFEdipine XL [Procardia Xl] 90 mg PO QDAY #90 tablet 05/07/19 10/04/20 10/04/20 11:23 Rx Docusate Sodium [Colace CAP] 100 mg PO DAILY #30 capsule 08/07/20 10/04/20 10/03/20 08:00 Rx Furosemide [Lasix] 40 mg PO PRN PRN 09/25/20 10/04/20 10/03/20 08:00 History Insulin Detemir [Levemir Flextouch] 28 unit SQ DAILY 09/25/20 10/04/20 10/03/20 17:00 History Insulin Lispro [Admelog] 10 unit SQ DAILY 09/25/20 10/04/20 10/03/20 17:00 History carvediloL [Coreg] 25 mg PO BID 09/25/20 10/04/20 10/04/20 05:00 History Active Medications Cefazolin Sodium (Cefazolin/Sterile Water 2 Gm/20 Ml Syringe) 2 gm IV PREOP NR Stop: 10/04/20 20:00 Fentanyl (Fentanyl 100 Mcg/2 Ml Inj) 100 mcg IV ONCE PRN PRN Reason: sedation for nerve block Last Admin: 10/04/20 12:18 Dose: 50 mcg Documented by: Sodium Chloride (Nacl 0.9% 1000 Ml) 1,000 mls @ 42 mls/hr IV DIRECT JUAN DANIEL Last Admin: 10/04/20 12:14 Dose: 42 mls/hr Documented by: Midazolam HCl (Midazolam 2 Mg/2 Ml Inj) 2 mg IV PREOP NR Stop: 10/04/20 23:59 Last Admin: 10/04/20 12:18 Dose: 2 mg Documented by: Nifedipine (Nifedipine Xl 90 Mg Tab) 90 mg PO PREOP JUAN DANIEL Stop: 10/04/20 18:00 Last Admin: 10/04/20 11:23 Dose: 90 mg Documented by: - Brief post op/procedure progress note Date of procedure: 10/04/20 Pre-op diagnosis: End-Stage Renal Disease Post-op diagnosis: same Procedure: Creation of Left Brachial Artery to Left Axillary Vein Arteriovenous Graft with 6 mm Bovine Artegraft Anesthesia: MAC, regional Surgeon: OVIDIO POPE Estimated blood loss: minimal Pathology: none Condition: stable - Disposition Condition at discharge: Good Disposition: DC-01 TO HOME OR SELFCARE Short Stay Discharge Plan Activity: other (No heavy lifting with left arm for 2 weeks.) Wound: open to air, keep clean and dry, other (Okay to wash the left arm wounds with soap and water but do not soak in water for 2 weeks.) Follow up with: OVIDIO POPE MD [Staff Physician] - 14 Days Prescriptions: HYDROcodone/APAP 7.5-325 [[place] 7.5/325] 1 each PO Q6HR PRN #30 tablet PRN Reason: Pain
--- NOTE | 2020-10-04 14:44 | Operative Report ---
Operative Report Operative Report: Date of procedure: 10/04/2020 Pre-operative diagnosis: End-Stage Renal Disease Post-operative diagnosis: Same Procedure(s): 1. Creation of Left Brachial Artery to Axillary Vein AV Graft with 6 mm Bovine Graft Artergraft Surgeon: Simon Oates MD Manager Presentation: None Anesthesia: Regional/MAC EBL: Minimal Counts: Correct Complications: None Condition: Stable Findings: Successful Creation of Left Arm AV Graft with Palpable Thrill and Palpable Radial Pulse at the Completion of the Case. Specimen: None Indication: The patient is a 44-year-old male with a history of end-stage renal disease who is currently on hemodialysis through a right internal jugular permacath. He is in need of long-term dialysis access and a vein mapping demonstrated he is not an adequate candidate for creation of an arteriovenous fistula. He is in need of an arteriovenous graft. He was given the risk, benefits, and alternative procedures and consented to the procedure. Description of Procedure: Prior to being transported to the operating room the patient had a regional block of the left arm performed. After the block was performed the patient was transported to the operating room and adequately sedated. The patient's left arm was then prepped and draped in normal sterile fashion. A longitudinal incision was made on the medial aspect of the arm just proximal to the antecubital crease and carried down to the brachial artery using sharp dissection. The brachial artery was dissected out circumferentially both proximally and distally and controlled with vessel loops. A second incision was created in longitudinal fashion on the medial aspect of the arm just distal to the axillary crease and carried down to the axillary vein using sharp dissection. Axillary vein was dissected out circumferentially and controlled with a vessel loop. I then used a Melissa-Wick tunneler to tunnel from the brachial artery incision to the axillary vein incision and then pulled an 6 mm bovine through the tunnel. I infused with heparinized saline to ensure that it was not twisted or kinked. I put the brachial artery vessel loops on tension controlling the flow and then created an arteriotomy using an 11 blade and Oliva scissors. I beveled the graft and created an end-to-side anastomosis using 6-0 Prolene running fashion. I clamped the graft just proximal to the anastomosis and then released the vessel loops restoring flow in the brachial artery. I placed quick clot in incision to achieve hemostasis. I cut the proximal end of the graft to the appropriate length and beveled the graft in preparation for a venous anastomosis. I controlled the axillary vein a Satinsky clamp and created a venotomy using an 11 blade and Oliva scissors. I created an end to side anastomosis using a 6-0 Prolene in running fashion. Prior to completing the anastomosis I flushed the graft to ensure there was no thrombus and then completed the anastamosis. I released all clamps allowing flow into the AV graft which had an excellent thrill. I packed the wound with quick clot to achieve hemostasis. I closed both wounds in 2 layers using 3-0 Vicryl in running fashion in the deep dermal layer and 4-0 Monocryl in running fashion the subcuticular layer. I dressed both wounds with Dermabond. The patient tolerated the procedure well all sponge, needle, and instrument counts were correct. The patient was taken to recovery in stable condition.
[2020-10-04] MEDS ORDERED: hydrALAZINE 20 MG/1 ML INJ ONE (15:13)
[2020-10-04] MEDS ORDERED: hydrALAZINE 20 MG/1 ML INJ IV ONE (15:17)
[2020-10-04] MEDS ORDERED: ONDANSETRON 4 MG/2 ML INJ IV SCH (15:30)
[2020-10-04] MEDS ORDERED: HEPARIN 10,000 UNIT/1 ML VIAL IV PRN (15:30)
--- NOTE | 2020-10-04 15:55 | Post Anesthesia Evaluation ---
- Post Anesthesia Evaluation Patient Participated: Yes Airway Patent: Yes Stable Respiratory Function: Yes Nausea/Vomiting: No Temp > 96.8F: Yes Pain Manageable: Yes Adequeate Hydration: Yes Anesthesia Complications: No Block Receding Appropriately: Yes Other Comments: Patient complained of hoarseness on arrival to PACU. No difficulty breathing or swallowing. No obvious deformity of the neck. Discussed causes of hoarseness after anesthetic, including but not limited to possible association with regional block. Advised that symptoms would likely improve over the next several hours to days. Patient verbalized understanding. He received PO fluids while in PACU and felt hoarseness was improved at time of discharge.
[2020-10-04 16:32] VITALS: BP 135/81
== END 2020-10-04 16:25 | disposition home or self-care (01) ==
LOC: OR 09:42
PROVIDERS: ATTEND Surgery Vascular Surgery
DX: I12.0 Hypertensive chronic kidney disease with stage 5 chronic kidney disease or end stage renal disease (principal); N18.6 End stage renal disease; F17.210 Nicotine dependence, cigarettes, uncomplicated; I25.2 Old myocardial infarction; E78.00 Pure hypercholesterolemia, unspecified; M19.90 Unspecified osteoarthritis, unspecified site; F32.9 Major depressive disorder, single episode, unspecified; Z98.890 Other specified postprocedural states; Z79.899 Other long term (current) drug therapy; Z79.4 Long term (current) use of insulin; Z90.49 Acquired absence of other specified parts of digestive tract; Z72.89 Other problems related to lifestyle
CPT/HCPCS: 36415; 36830; 64415; 80048; 82962; 85027; C1768; J0360; J0690; J1644; J2250; J2405; J3010; J3490; J7030; J7040; J7050; 64450; J1815